=== PATIENT | male | born 1940 | race Caucasian/White ===

== ENCOUNTER 2020-10-04 11:40 | Emergency (ER) | payer MEDICARE, MEDICAID, SELFPAY ==
[2020-10-04 11:40] VITALS: BP 121/88; PULSE 115; RESP 18; TEMP 36.4; O2SAT 94; BMI 35.9
--- NOTE | 2020-10-04 11:48 | CT_ITS ---
PROCEDURE: CT LUMBAR SPINE WO CON CLINICAL HISTORY: back pain COMPARISON: No exams were available for comparison TECHNIQUE: Axial images obtained with sagittal and coronal reformats. All CT scans at the facility use one or more dose reduction, viz: automated exposure control, ma/kV adjustment per patient size (including targeted exams where dose is matched to indication, i.e. head), or iterative reconstruction technique. FINDINGS: There is normal curvature and alignment. There is mild generalized osteopenia. There is moderate anterior osteophytic spurring at the L2-3 and L3-4 levels. There is markedly prominent anterior osteophytic spurring at the T12-L1 level with partial fusion of the anterior osteophytes. There is minor anterolisthesis of L5 on S1 probably no more than 1-2 mm. There is mild disc space narrowing of the L5-S1 disc space. There are prominent hypertrophic facet changes at the L5-S1 level and minor anterior listhesis is likely secondary to the arthritic facet changes. There is no pars defect. There is a transitional vertebrae at the lumbosacral junction with almost complete lumbarization of S1 with unilateral pseudoarthrosis on the left side. There is moderate ossification of the iliolumbar ligament on the right side. The SI joints are grossly normal bilaterally. 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 Augusto Shah MD 10/04/2020 13:26 Dr. Augusto Shah MD in [place] 10/04/2020 13:26
--- NOTE | 2020-10-04 11:48 | XR_ITS ---
PROCEDURE: XR HIP LT 2-3V W/PELVIS CLINICAL INDICATION: back pain COMPARISON: No exams were available for comparison FINDINGS: There is marked asymmetrical joint space narrowing left hip with sclerosis of the superior acetabulum and spurring and sclerosis of the inferior lip of the acetabulum. There may be very mild protrusio acetabuli as well. There are mild to moderate degenerate changes of the right hip with a moderately large periarticular ossification. There is mild sclerosis of the inferior aspects of both SI joints. The symphysis pubis appears normal. There is bilateral ossification of the iliolumbar ligaments. 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 Dictated by: Dr. Augusto Shah MD 10/04/2020 13:40 Dr. Augusto Shah MD in [place] 10/04/2020 13:40
[2020-10-04 12:00] VITALS: BP 120/80; PULSE 97; O2SAT 98
[2020-10-04 12:09] LABS: Basophils # 0.1 K/mm3 (0-0.2); Basophils % 0.4 % (0.1-2.0); Eosinophils # 0.1 K/mm3 (0.0-0.4); Eosinophils % 0.9 % (0.1-12.0); Hematocrit 42.9 % (42.0-52.0); Hemoglobin 14.9 g/dL (14.1-18.0); Lymphocytes # 2.4 K/mm3 (0.7-4.5); Lymphocytes % 18.3 % (10-50); Mean Corpuscular HGB Conc 34.7 g/dL (31.8-35.4); Mean Corpuscular Volume 94.9 fl (80-94); Mean Platelet Volume 8.6 fl (7.4-10.4); Monocytes # 0.8 K/mm3 (0.1-1.0); Monocytes % 5.9 % (1.7-9.3); Neutrophils # 9.7 K/mm3 (1.8-7.8); Neutrophils % 74.4 % (37.0-80.0); Platelet Count 266 K/mm3 (142-424); Red Blood Count 4.52 M/mm3 (4.60-6.20); Red Cell Distribution Width 14.6 % (11.5-17.5); White Blood Count 13.1 K/mm3 (4.8-10.8)
--- NOTE | 2020-10-04 12:11 | HMH.EDBACK ---
ED Disposition Clinical Impression: Strain of lumbar region, Acute back pain with sciatica Disposition: Home, Self-Care Condition on Discharge: Good Instructions: DI for Low Back Pain Additional Instructions: Please return with any new or worsening symptoms including bowel or bladder dysfunction, numbness, inability to ambulate. Follow-up with PCP. Take Tylenol and Flexeril for pain. Prescriptions: Cyclobenzaprine HCl [Flexeril 10mg tablet] 10 mg PO BID PRN 30 Days #60 tab PRN Reason: Breakthru Severe Pain Transmission Status: Pending to [id number] Referrals: PCP,No [Primary Care Provider] - - Critical Care Critical Care Time: No Attestation: On 10/04/20, the high probability of a clinically significant, sudden or life threatening deterioration of the following system(s) required my full and direct attention, intervention and personal management. The time I documented below is in addition to time spent performing reported procedures but includes the following listed in this critical care notation. Medical Decision Making - Medical Records Medical records reviewed: Yes: I reviewed the patient's medical records. - Sumanth Inquiry Pt receiving controlled substance: No Vital Signs: 10/04/20 11:40 10/04/20 12:00 10/04/20 12:26 Temperature 97.5 F L Temperature Source Oral Pulse Rate [Left Radial] 115 H Pulse Rate [Right Radial] 97 H 74 Respiratory Rate 18 Blood Pressure [Right Arm] 121/88 120/80 127/68 Blood Pressure Mean [Right Arm] 99 93 87 Blood Pressure Source [Right Arm] Automatic Cuff Automatic Cuff Automatic Cuff Blood Pressure Position [Right Arm] Sitting Sitting Sitting 02 Sat by Pulse Oximetry 94 L 98 97 Oxygen Delivery Method Room Air Room Air Room Air 10/04/20 13:37 10/04/20 14:20 Temperature Temperature Source Pulse Rate [Left Radial] Pulse Rate [Right Radial] 97 H 112 H Respiratory Rate Blood Pressure [Right Arm] 113/72 102/55 L Blood Pressure Mean [Right Arm] 85 70 Blood Pressure Source [Right Arm] Automatic Cuff Automatic Cuff Blood Pressure Position [Right Arm] Sitting Sitting 02 Sat by Pulse Oximetry 99 95 Oxygen Delivery Method Room Air Room Air - Lab Data Lab Results 10/04/20 11:50: WBC 13.1 H, RBC 4.52 L, Hgb 14.9, Hct 42.9, MCV 94.9 H, MCH 33.0 H, MCHC 34.7, RDW 14.6, Plt Count 266, MPV 8.6, Neut % (Auto) 74.4, Lymph % (Auto) 18.3, [place] % (Auto) 5.9, Eos % (Auto) 0.9, Baso % (Auto) 0.4, Neut # (Auto) 9.7 H, Lymph # (Auto) 2.4, [place] # (Auto) 0.8, Eos # (Auto) 0.1, Baso # (Auto) 0.1 10/04/20 11:50: Sodium 135 L, Potassium 4.0, Chloride 97 L, Carbon Dioxide 27, Anion Gap 15.0, BUN 20, Creatinine 0.80, Estimated Creat Clear 96, Estimated GFR 93, Est GFR ( Amer) 113, Glucose 158 H, Calcium 10.0, Total Bilirubin 0.7, AST 40, ALT 28, Alkaline Phosphatase 131 H, Total Protein 8.1, Albumin 4.5, Globulin 3.6 H, Albumin/Globulin Ratio 1.3 10/04/20 12:57: Urine Color Yellow, Urine Appearance Clear, Urine pH 7.5, Ur Specific [place] 1.015, Urine Protein Negative, Urine Glucose (UA) Negative, Urine Ketones Negative, Urine Blood Negative, Urine Nitrate Negative, Urine Bilirubin Negative, Urine Urobilinogen 1.0, Ur Leukocyte Esterase Negative, Ur Squamous Epith Cells Occasional Result diagrams: 10/04/20 11:50 10/04/20 11:50 Orders (Tests/Meds): ED MEDICATIONS Discontinued Medications Generic Name Dose Route Start Last Admin Trade Name Columba PRN Reason Stop Dose Admin Acetaminophen 1,000 mg 10/04/20 14:10 10/04/20 14:24 Acetaminophen 500mg Tab PO 10/04/20 14:11 1,000 mg ONCE ONE Administration Cyclobenzaprine HCl 5 mg 10/04/20 14:11 10/04/20 14:24 Cyclobenzaprine 10mg Tablet PO 10/04/20 14:12 5 mg ONCE ONE Administration Lidocaine 1 each 10/04/20 14:15 10/04/20 14:25 Lidocaine 5% Transdermal Patch TP 10/04/20 14:16 1 each Q24H ONE Administration Morphine Sulfate 4 mg 10/04/20 11:51 10/04/20 12:13 Morphine
[2020-10-04 12:18] LABS: Alanine Aminotransferase 28 U/L (12-78); Albumin Level 4.5 g/dl (3.5-5.0); Albumin/Globulin Ratio 1.3 (1.1-1.8); Alkaline Phosphatase 131 U/L (38-126); Aspartate Amino Transferase 40 U/L (17-59); Bilirubin,Total 0.7 mg/dl (0.2-1.3); Blood Urea Nitrogen 20 mg/dl (9-20); Carbon Dioxide 27 mmol/L (22.0-30.0); Chloride 97 mmol/L (98-107); Creatinine Clearance Estimated 96 mL/min (50-200); Estimated Glomerular Filt Rate 93 ml/min (>60); GFR (African American) 113 ML/MIN (>60); Globulin 3.6 g/dL (1.3-3.2); Glucose 158 mg/dl (74-100); Sodium 135 mmol/L (136-145); Total Protein,Serum 8.1 g/dl (6.3-8.2)
[2020-10-04 12:26] VITALS: BP 127/68; PULSE 74; O2SAT 97
[2020-10-04 13:09] LABS: Microscopic, Urine URINE MICROSCOPIC (MICROSCOPIC)
[2020-10-04 13:12] LABS: Appearance,Urine CLEAR (Clear); Bilirubin,Urine Negative (Negative); Blood, Urine Negative (Negative); Color,Urine YELLOW (Yellow); Glucose,Urine (UA) Negative (Negative); Ketones,Urine Negative (Negative); Leukocyte Esterase,Urine Negative (Negative); Nitrate,Urine Negative (Negative); PH,Urine 7.5 (5.0-8.5); Protein,Urine Negative (Negative); Specific Gravity, Urine 1.015 (1.005-1.030)
[2020-10-04 13:37] VITALS: BP 113/72; PULSE 97; O2SAT 99
[2020-10-04 13:39] LABS: Squamous Epithelial Cell,Urine Occasional #/hpf (0-5)
[2020-10-04 14:20] VITALS: BP 102/55; PULSE 112; O2SAT 95
--- NOTE | 2020-10-04 14:38 | XR_ITS ---
PROCEDURE: XR KNEE LT 3V CLINICAL INDICATION: pain COMPARISON: No exams were available for comparison FINDINGS: No fracture or dislocation. No lytic or blastic change. There is normal mineralization. There is marked joint space narrowing laterally with almost bone on bone appearance. There is spurring of the tibial spines. There is narrowing of patellofemoral space with spurring of the superior border of the patella. There is no definite fracture or loose body. There may be a small effusion within the suprapatellar bursa. IMPRESSION: Question small joint effusion, findings of moderate the degenerate change involving the lateral joint space and patellofemoral space Dictated by: Dr. Augusto Shah MD 10/04/2020 15:27 Dr. Augusto Shah MD in [place] 10/04/2020 15:27
--- NOTE | 2020-10-04 15:47 | PC.NURSE ---
Pt ambulated well with x2 assistance. Pt states that he sometimes uses a walker at home.
[2020-10-04 16:30] VITALS: BP 118/75; PULSE 84; RESP 20; TEMP 36.6; O2SAT 95
== END 2020-10-04 16:35 | disposition home or self-care (01) ==
PROVIDERS: Emergency Provider Emergency Medicine; PCP Family Medicine
DX: S39.012A Strain of muscle, fascia and tendon of lower back, initial encounter (principal); Z79.899 Other long term (current) drug therapy; I10 Essential (primary) hypertension; K21.9 Gastro-esophageal reflux disease without esophagitis; Z79.01 Long term (current) use of anticoagulants
CPT/HCPCS: 72131; 73502; 73562; 80053; 81001; 85025; 96374; 96375; 99284; J2405

== ENCOUNTER 2021-06-30 12:48 | Inpatient (IN) | payer MEDICARE, MEDICAID, SELFPAY ==
[2021-06-30] VITALS (16 sets, daily range): BP systolic 95–163; BP diastolic 56–117; PULSE 100–155; RESP 16–23; TEMP 36.6–37.4; O2SAT 92–98; BMI 37.3; BMI 32.9
--- NOTE | 2021-06-30 12:57 | HMH.EDAMS ---
ED Disposition Clinical Impression: Atrial fibrillation with rapid ventricular response, Cellulitis and abscess of finger, unspecified, Cellulitis, neck Sepsis Qualifiers: Sepsis type: sepsis due to unspecified organism Sepsis acute organ dysfunction status: without acute organ dysfunction Qualified Code(s): A41.9 - Sepsis, unspecified organism Disposition: Admitted as Observation Condition on Discharge: Serious - Critical Care Critical Care Time: Yes Attestation: On , the high probability of a clinically significant, sudden or life threatening deterioration of the following system(s) required my full and direct attention, intervention and personal management. The time I documented below is in addition to time spent performing reported procedures but includes the following listed in this critical care notation. Total Critical Care Time: 60 Vital system(s) involved:: Circulatory Failure My critical care processes included: Assessment & monitoring of V/S, Initial and Re-exams, Data Review/Interpretation, Coordinating Care, Medication Orders and management, Documentation Medical Decision Making - Medical Records Medical records reviewed: Yes: I reviewed the patient's medical records. - Sumanth Inquiry Pt receiving controlled substance: No Vital Signs: 06/30/21 12:48 Temperature 97.8 F Temperature Source Oral Pulse Rate [Right Radial] 140 H Respiratory Rate 19 Blood Pressure [Right Arm] 147/102 H Blood Pressure Mean [Right Arm] 117 Blood Pressure Source [Right Arm] Automatic Cuff Blood Pressure Position [Right Arm] Sitting 02 Sat by Pulse Oximetry 94 L Oxygen Delivery Method Room Air - Lab Data Lab Results 06/30/21 12:30: WBC 34.6 H*, RBC 4.51 L, Hgb 14.6, Hct 43.0, MCV 95.4 H, MCH 32.5 H, MCHC 34.0, RDW 13.9, Plt Count 375, MPV 9.2, Neut % (Auto) 89.0 H, Lymph % (Auto) 4.8 L, [place] % (Auto) 5.2, Eos % (Auto) 0.0 L, Baso % (Auto) 0.9, Neut # (Auto) 30.8 H, Lymph # (Auto) 1.7, [place] # (Auto) 1.8 H, Eos # (Auto) 0.0, Baso # (Auto) 0.3 H, Total Counted 100, Neutrophils % (Manual) 75, Band Neutrophils % 3.0, Lymphocytes % (Manual) 14, Monocytes % (Manual) 8, Platelet Estimate Normal, RBC Morphology Normal 06/30/21 12:30: PT 21.6 H, INR 1.92 H 06/30/21 12:30: Sodium 117 L, Potassium 4.2, Chloride 78 L, Carbon Dioxide 28, Anion Gap 15.2 H, BUN 19, Creatinine 0.70, Estimated Creat Clear 104, Estimated GFR 109, Est GFR ( Amer) 131, Glucose 148 H, Calcium 8.8, Total Bilirubin 1.4 H, AST 40, ALT 36, Alkaline Phosphatase 225 H, Troponin I 0.02, NT-Pro-B Natriuret Pep 1260 H, Total Protein 7.2, Albumin 3.6, Globulin 3.6 H, Albumin/Globulin Ratio 1.0 L 06/30/21 12:30: Lactate 1.6 Result diagrams: 06/30/21 12:30 06/30/21 12:30 Orders (Tests/Meds): ED MEDICATIONS Generic Name Dose Route Start Last Admin Trade Name Freq PRN Reason Stop Dose Admin Diltiazem HCl 100 mg/ Sodium 100 mls @ 5 mls/hr 06/30/21 13:45 06/30/21 14:50 Chloride IV 07/30/21 13:44 5 mls/hr .Q20H PORSHA Administration Protocol Piperacillin Sod/Tazobactam 50 mls @ 100 mls/hr 06/30/21 13:30 06/30/21 14:50 Sod 3.375 gm/ Sodium Chloride IV 07/14/21 13:29 100 mls/hr Q6H PORSHA Administration Discontinued Medications Generic Name Dose Route Start Last Admin Trade Name Freq PRN Reason Stop Dose Admin Diltiazem HCl 10 mg 06/30/21 13:23 06/30/21 14:50 Diltiazem 25mg/5ml Vial IV 06/30/21 13:24 10 mg ONCE ONE Administration ORDERS Category Date Time Status Complete Blood Count Auto Diff AMLAB Lab 07/01/21 06:00 Ordered Troponin I Q3H Lab 06/30/21 16:15 Ordered ECG Request by /Nse Stat Y 06/30/21 13:01 Ordered - ECG Data Tracing #1 I reviewed this ECG and interpreted as documented below: The patient's EKG was performed at 1320 2 PM and shows atrial fibrillation with a rapid ventricular response at a rate of 133 bpm. There is left axis deviation. There is no acute ischemia. There are some occ
--- NOTE | 2021-06-30 13:01 | ECG_ITS ---
APPROVED REPORT Exam: Resting ECG HR:133 bpm ECG Measurements Heart Rate 133 AXES QRSd 92 QRS -66 QT 284 T 101 QTc 422 Conclusion Atrial fibrillation with rapid ventricular response with premature ventricular or aberrantly conducted complexes Left axis deviation Cannot rule out Anterior infarct, age undetermined Abnormal ECG Electronically signed by : Isidoro Vaughn MD 07/03/2021 10:57:34
--- NOTE | 2021-06-30 13:01 | XR_ITS ---
PROCEDURE: XR CHEST PORTABLE CLINICAL HISTORY: Dyspnea COMPARISON: No exams were available for comparison FINDINGS: There is cardiomegaly. No evidence of failure. Lung bases are under penetrated. Cannot exclude infiltrate in the lung bases left more so than right. No obvious effusions or pneumothorax. No definite lobar consolidation or collapse. Degenerative changes of the shoulders. IMPRESSION: No acute findings. Dictated by: Jarvis Oliveira MD 06/30/2021 13:44 Jarvis Oliveira MD in [place] 06/30/2021 13:44
[2021-06-30 13:20] LABS: Basophils # 0.3 K/mm3 (0-0.2); Basophils % 0.9 % (0.1-2.0); Hemoglobin 14.6 g/dL (14.1-18.0); Lymphocytes # 1.7 K/mm3 (0.7-4.5); Lymphocytes % 4.8 % (10-50); Mean Corpuscular Hemoglobin 32.5 pg (27.0-31.2); Mean Corpuscular Volume 95.4 fl (80-94); Mean Platelet Volume 9.2 fl (7.4-10.4); Monocytes # 1.8 K/mm3 (0.1-1.0); Monocytes % 5.2 % (1.7-9.3); Neutrophils # 30.8 K/mm3 (1.8-7.8); Platelet Count 375 K/mm3 (142-424); Red Blood Count 4.51 M/mm3 (4.60-6.20); Red Cell Distribution Width 13.9 % (11.5-17.5); White Blood Count 34.6 K/mm3 (4.8-10.8)
[2021-06-30 13:23] LABS: MANUAL DIFFERENTIAL MANUAL DIFFERENTIAL (MANUAL DIFF)
[2021-06-30 13:27] LABS: Alanine Aminotransferase 36 U/L (12-78); Albumin Level 3.6 g/dl (3.5-5.0); Alkaline Phosphatase 225 U/L (38-126); Anion Gap 15.2 mEq/L (5-15); Aspartate Amino Transferase 40 U/L (17-59); Bilirubin,Total 1.4 mg/dl (0.2-1.3); Blood Urea Nitrogen 19 mg/dl (9-20); Calcium 8.8 mg/dl (8.4-10.2); Carbon Dioxide 28 mmol/L (22.0-30.0); Chloride 78 mmol/L (98-107); Creatinine Clearance Estimated 104 mL/min (50-200); Estimated Glomerular Filt Rate 109 ml/min (>60); GFR (African American) 131 ML/MIN (>60); Globulin 3.6 g/dL (1.3-3.2); Glucose 148 mg/dl (74-100); Potassium 4.2 mmoL/L (3.5-5.1); Prothrombin Time 21.6 seconds (10.1-12.5); Sodium 117 mmol/L (136-145); Total Protein,Serum 7.2 g/dl (6.3-8.2)
[2021-06-30 13:28] LABS: INR 1.92 (0.9-1.1); Lactic Acid 1.6 mmol/L (0.7-2.1)
[2021-06-30 13:37] LABS: Lymphocytes % 14 % (10-50); Monocytes % 8 % (2-9); Neutrophils % 75 % (42-76); Platelet Estimate Normal; RBC Morphology Normal; Total Cells Counted 100
[2021-06-30 13:41] LABS: NT Pro Brain Natriuretic Pep. 1260 pg/mL (0-450); Troponin I 0.02 ng/ml (0.00-0.034)
--- NOTE | 2021-06-30 15:46 | PC.NURSE ---
DILTIAZEM GTT TITRATED UP TO 10MG/HR, 5MG BOLUS GIVEN PER MD LOU WITH TITRATION
--- NOTE | 2021-06-30 16:41 | PC.NURSE ---
called for cardiac consult, they advised Meg would see him in the morning
--- NOTE | 2021-06-30 16:43 | PC.NURSE ---
received bed assisgnment from second floor charge [place] in registration of admission information
[2021-06-30 16:59] LABS: Coronavirus 19, PCR Not Detected (NotDetected); Influenza A, PCR Not Detected (NotDetected); Influenza B, PCR Not Detected (NotDetected)
--- NOTE | 2021-06-30 17:37 | PC.NURSE ---
Attempted to call report to second floor. They advised the nurse is starting an IV and will call me back as soon as she can.
[2021-06-30 18:04] LABS: Troponin I 0.01 ng/ml (0.00-0.034)
--- NOTE | 2021-06-30 18:38 | PC.NURSE ---
pt arrived to the floor at this time
--- NOTE | 2021-06-30 19:33 | HMH.HP ---
*Admission Date: 06/30/21 *Chief complaint: mental status changes, cellulitis, afib *History of present illness: Patient is an 80-year-old white male admitted to our service as an unassigned patient. He is a very poor historian. Is having some confusion, ental status changes. Was brought to the emergency room earlier today for evaluation. In the course of his work-up noted to have a significant leukocytosis with a white count of 34,000. He was also found to be in A. fib with a rapid rate. A Cardizem drip was initiated, uptitrated to 15. The patient denies ischemic chest features, dyspnea, or cardiac history. Patient was brought in and a markedly unkempt and disheveled status. Clothing was dirty and unwashed. Patient has a marked cellulitis involving the right third finger. There is swelling warmth and purulent drainage. This was cultured. Peers grossly to be growing MRSA. Patient also has an area of significant redness warmth and induration in the posterior neck. This was also cultured, also grossly appears to be MRSA. The soft tissue swelling does not impinge upon the trachea or airway. Structures remain mobile and in the midline. Patient has several scattered abrasions forehead. His abdomen is rotund obese and soft. He has a nonincarcerated umbilical hernia. His extremities have some edema. Stool perfusion is adequate. The nurses noted that his bottom was excoriated for they gave him a good cleaning. Patient is poorly oriented to place and time. [facility] History Medical History: Reports:: Atrial Fibrillation, Hypertension *Have you ever received a pneumonia vaccine?: No *Have you received a flu vaccine this season?: No Other Medical History: Reports: Arthritis Other Surgeries: Yes: Colonoscopy - *Social History Last grade of school completed: 7th or 8th Smoking Status: Current some day smoker Tobacco Type: cigarettes Alcohol Intake: never Substance Use Type: denies use *Occupational Status:: retired *Travel in the last 8 weeks: None Family Hx:: No significant family history Review of Systems - Review of Systems Review of systems:: unable to obtain Meds Home Medications Medication Instructions Recorded Confirmed Type Amlodipine Besylate [Amlodipine 10 mg PO DAILY 10/04/20 10/21/20 History 10mg Tab] Cyclobenzaprine HCl [Flexeril 10mg 10 mg PO BID PRN 30 Days #60 tab 12/12/20 12/29/20 Rx tablet] Famotidine [Acid Controller] 20 mg PO DAILY 10/04/20 10/21/20 History Metoprolol Tartrate 25 mg PO BID 10/04/20 10/21/20 History Potassium Chloride 20 meq PO DAILY 10/04/20 10/21/20 History Warfarin Sodium 5 mg PO DIRECTED 10/04/20 10/21/20 History allopurinoL [Allopurinol 300mg 300 mg PO DAILY 10/04/20 10/21/20 History tablet] hydroCHLOROthiazide [HCTZ 25mg 25 mg PO DAILY 10/04/20 10/21/20 History tab] lisinopriL [Lisinopril 40mg Tablet] 40 mg PO DAILY 10/04/20 10/21/20 History Allergies Allergy/AdvReac Type Severity Reaction Status Date / Time No Known Allergies Allergy Verified 10/21/20 13:15 Exam Vital signs and Labs for Last 24 Hours: Temp Pulse Resp BP Pulse Ox 98.4 F 121 H 23 134/72 96 06/30/21 18:38 06/30/21 18:38 06/30/21 18:38 06/30/21 18:38 06/30/21 16:31 Laboratory Results - last 24 hr 06/30/21 12:30: WBC 34.6 H*, RBC 4.51 L, Hgb 14.6, Hct 43.0, MCV 95.4 H, MCH 32.5 H, MCHC 34.0, RDW 13.9, Plt Count 375, MPV 9.2, Neut % (Auto) 89.0 H, Lymph % (Auto) 4.8 L, [place] % (Auto) 5.2, Eos % (Auto) 0.0 L, Baso % (Auto) 0.9, Neut # (Auto) 30.8 H, Lymph # (Auto) 1.7, [place] # (Auto) 1.8 H, Eos # (Auto) 0.0, Baso # (Auto) 0.3 H, Total Counted 100, Neutrophils % (Manual) 75, Band Neutrophils % 3.0, Lymphocytes % (Manual) 14, Monocytes % (Manual) 8, Platelet Estimate Normal, RBC Morphology Normal 06/30/21 12:30: PT 21.6 H, INR 1.92 H 06/30/21 12:30: Sodium 117 L, Potassium 4.2, Chloride 78 L, Carbon Dioxide 28, Anion Gap 15.2 H, BUN 19, Creatinine 0.70, Estimated Creat Franki
--- NOTE | 2021-06-30 19:46 | CT_ITS ---
PROCEDURE INFORMATION: Exam: CT Head Without Contrast Exam date and time: 06/30/2021 7:46 PM Age: 80 years old Clinical indication: Altered mental status/memory loss; Additional info: Mental status changes TECHNIQUE: Imaging protocol: Computed tomography of the head without contrast. Radiation optimization: All CT scans at this facility use at least one of these dose optimization techniques: automated exposure control; mA and/or kV adjustment per patient size (includes targeted exams where dose is matched to clinical indication); or iterative reconstruction. COMPARISON: No relevant prior studies available. FINDINGS: Brain: Normal. No hemorrhage. Mild hypoattenuation of the periventricular and subcortical white matter, consistent with chronic microvascular ischemic disease. . No mass effect. Cerebral ventricles: No ventriculomegaly. Paranasal sinuses: Unremarkable. Mastoid air cells: Visualized mastoid air cells are well aerated. Vasculature: Atherosclerotic calcification of the bilateral intracranial internal carotid and right vertebral arteries. Bones/joints: Unremarkable. No acute fracture. Soft tissues: Occipital and suboccipital soft tissue swelling with skin thickening and subcutaneous edema, which may represent cellulitis. IMPRESSION: 1. No acute intracranial abnormality. 2. Occipital and suboccipital soft tissue swelling with skin thickening and subcutaneous edema, which may represent cellulitis. Further evaluation with direct visualization and examination may be of benefit. Please see separate report of CT of the neck soft tissue.
--- NOTE | 2021-06-30 20:09 | CT_ITS ---
PROCEDURE INFORMATION: Exam: CT Neck With Contrast Exam date and time: 06/30/2021 8:09 PM Age: 80 years old Clinical indication: Cellulitis of neck; Additional info: Cellulitis of the neck, drainage TECHNIQUE: Imaging protocol: Computed tomography images of the neck with contrast. Radiation optimization: All CT scans at this facility use at least one of these dose optimization techniques: automated exposure control; mA and/or kV adjustment per patient size (includes targeted exams where dose is matched to clinical indication); or iterative reconstruction. Contrast material: ISOVUE; Contrast volume: 75 ml; Contrast route: IV; COMPARISON: CT HEAD/BRAIN WO CON 06/30/2021 7:58 PM FINDINGS: Paranasal sinuses: Mucous retention cyst in the right maxillary sinus. Mild mucosal thickening of the left maxillary sinus. Nasopharynx: Unremarkable. Dental: The patient is edentulous. Oropharynx: Unremarkable. No significant tonsillar enlargement. Hypopharynx: Unremarkable. Larynx: Unremarkable. Normal epiglottis. Retropharyngeal space: Unremarkable. Submandibular/Parotid glands: Normal. Glands are normal in size. Thyroid: Normal. No enlarged or calcified nodules. Lymph nodes: Bilateral subcentimeter cervical chain lymph nodes, likely reactive. Trachea: Visualized trachea is unremarkable. Lungs: Subsegmental atelectasis. Bones/joints: No acute fracture. Degenerative change. Small anterior osteophytes. Multilevel uncinate process and facet hypertrophy with at least mild neural foraminal narrowing. Vasculature: Atherosclerotic calcification. Soft tissues: Extensive soft tissue swelling and skin thickening in the occipital and suboccipital soft tissues, in the bilateral parasagittal region, greater on the left. Thickening of the superficial fascia, extending anteriorly to level of bilateral parotid glands (series 3, image 40). Findings are compatible with cellulitis. Ill-defined focus of subcutaneous edema measures 11.6 x 2.6 x 10.1 cm may represent an infected collection, such as phlegmon. No discrete fluid collection or abscess. Possible edema involving the posterior paraspinous musculature, including the rectus capitis and oblique capitis musculature, possibly myositis. IMPRESSION: 1. Extensive soft tissue swelling and skin thickening in the occipital and suboccipital soft tissues, as above, compatible with cellulitis. Ill-defined focus of subcutaneous edema measuring up to 11.6 cm may represent an infected collection, such as phlegmon. No abscess. Possible edema involving the posterior paraspinous musculature, including the rectus capitis and oblique capitis musculature, possibly myositis. Correlation with examination and direct visualization may be of benefit.
--- NOTE | 2021-06-30 20:17 | PC.NURSE ---
WHEN PT ARRIVED TO THE FLOOR HE RECEIVED A TOTAL BATH AND BED CHANGE. PT WAS NOTED TO HAVE MULTIPLE SKIN ISSUES. PT HAD DRAINAGE/REDNESS/SWELLING NOTED TO THE RIGHT MIDDLE FINGER AND ALSO TO THE BACK OF THE NECK ( BOTH AREAS CULTURED WITH AT BEDSIDE). BOTH AREAS VERY TENDER. PT HAS MULTIPLE ABRASIONS. ESCORIATION NOTED TO SCROTUM/BUTTOCKS/COCCYX. PICS NOT OBTAINED AT THIS TIME DUE TO PT'S MENTAL STATUS. PT IS ALERT TO NAME/ BUT WHEN HE IS ASKED ABOUT THE YEAR HE STATES IT IS 1973. PT HAS EXPRESSED CONCERN ABOUT MEDICARE MULTIPLE TIMES AND WHO WAS GOING TO TAKE CARE OF HIS BROTHER JAVIER WHO HE STATES LIVES WITH HIM. PT IS ON THE CARDIZEM DRIP AT THIS TIME. STATED HE WANTED PT TO BE STARTED ON VANCOMYCIN. REPORT HANDOFF TO LILIAN LANG RN.
--- NOTE | 2021-06-30 22:34 | PC.NURSE ---
Clarified Vancomycin Dosage with [facility]. Give 2,000 mg in 250 ml NS bag. Run for 2 hrs.
[2021-07-01] VITALS (29 sets, daily range): BP systolic 107–171; BP diastolic 54–95; PULSE 80–140; RESP 12–20; TEMP 36.1–37.5; O2SAT 91–100; BMI 32.9; BMI 32.8
[2021-07-01 06:01] LABS: Basophils # 0.1 K/mm3 (0-0.2); Basophils % 0.2 % (0.1-2.0); Eosinophils % 0.1 % (0.1-12.0); Hematocrit 40.3 % (42.0-52.0); Hemoglobin 13.5 g/dL (14.1-18.0); Lymphocytes # 1.5 K/mm3 (0.7-4.5); Lymphocytes % 4.8 % (10-50); Mean Corpuscular HGB Conc 33.5 g/dL (31.8-35.4); Mean Corpuscular Hemoglobin 32.2 pg (27.0-31.2); Mean Corpuscular Volume 96.2 fl (80-94); Mean Platelet Volume 9.1 fl (7.4-10.4); Monocytes % 6.2 % (1.7-9.3); Neutrophils # 28.1 K/mm3 (1.8-7.8); Neutrophils % 88.6 % (37.0-80.0); Platelet Count 289 K/mm3 (142-424); White Blood Count 31.7 K/mm3 (4.8-10.8)
[2021-07-01 06:11] LABS: Alanine Aminotransferase 28 U/L (12-78); Albumin Level 2.8 g/dl (3.5-5.0); Albumin/Globulin Ratio 0.9 (1.1-1.8); Alkaline Phosphatase 178 U/L (38-126); Anion Gap 12.7 mEq/L (5-15); Aspartate Amino Transferase 33 U/L (17-59); Bilirubin,Total 1.6 mg/dl (0.2-1.3); Blood Urea Nitrogen 14 mg/dl (9-20); Calcium 7.9 mg/dl (8.4-10.2); Carbon Dioxide 26 mmol/L (22.0-30.0); Chloride 84 mmol/L (98-107); Creatinine Clearance Estimated 92 mL/min (50-200); Estimated Glomerular Filt Rate 130 ml/min (>60); GFR (African American) 157 ML/MIN (>60); Glucose 138 mg/dl (74-100); Potassium 3.7 mmoL/L (3.5-5.1); Sodium 119 mmol/L (136-145); Total Protein,Serum 5.8 g/dl (6.3-8.2)
--- NOTE | 2021-07-01 06:11 | PC.NURSE ---
Pt remains in afib and on DIltiazem gtt. Currently infusing @ 10 mg/hr. Pt tolerating well. He remains on RA. Lungs clear. O2 sat 98%. During assessment pt noted to have erythema with open areas to back of neck and middle (R) finger. Drainage noted to both areas. DSG applied to (R) finger. Absorbent pad placed behind pt's neck. Pt is excoriated in michael area. Pt requested to have a urinary bag placed. Condom catheter was placed. Medication administered per mar. VSS. Will continue to monitor.
[2021-07-01 06:16] LABS: MANUAL DIFFERENTIAL MANUAL DIFFERENTIAL (MANUAL DIFF)
[2021-07-01 06:41] LABS: Thyroid Stimulating Hormone 1.19 uIU/mL (0.465-4.68)
--- NOTE | 2021-07-01 06:52 | PC.NURSE ---
Diltiazem gtt Titration; 1920 15 mg/hr 2200 10 mg/hr 0020 15 mg/hr 0530 10 mg/hr
--- NOTE | 2021-07-01 07:36 | HMH.PHAVTE ---
[facility] VTE Monitoring - Patient Demographics Admission date: 06/30/21 Report Date: 07/01/21 Time: 07:36 Allergies/Adverse Reactions: Patient Allergies No Known Allergies Allergy (Verified 10/21/20 13:15) Height: 1.83 m Weight: 110.421 kg Patient Problems: Current Active Problems Atrial fibrillation with rapid ventricular response (Acute) Sepsis (Acute) Cellulitis and abscess of finger, unspecified (Acute) Cellulitis, neck (Acute) Leukocytosis (Acute) Essential hypertension (Chronic) - VTE Risk Labs: VTE Related Lab Results Hgb 13.5 g/dL (14.1-18.0) L 07/01/21 05:25 Hct 40.3 % (42.0-52.0) L 07/01/21 05:25 Plt Count 289 K/mm3 (142-424) 07/01/21 05:25 PT 21.6 seconds (10.1-12.5) H 06/30/21 12:30 INR 1.92 (0.9-1.1) H 06/30/21 12:30 BUN 14 mg/dl (9-20) D 07/01/21 05:25 Creatinine 0.60 mg/dl (0.66-1.25) L 07/01/21 05:25 Estimated Creat Clear 92 mL/min (50-200) 07/01/21 05:25 VTE Score: 2 - Prophylaxis VTE Prophylaxis Ordered?: Yes Types of VTE Prophylaxis: TEDS Knee High, Pharmacological Location of Applied Device: Bilateral Lower Extremeties Pharmacologic Type: Enoxaparin
--- NOTE | 2021-07-01 07:39 | CA_ITS ---
APPROVED REPORT EXAM: Comprehensive 2D, Doppler, and color-flow Echocardiogram Dirt Contractor: Nunu Zepeda RVT Ht: 6 ft 0 in Wt: 243lbs BSA: 2.31 BP: 124/95 mmHg Indications: A-FIB,SEPSIS,CELLULITIS,HTN,SMOKER Echo Enhancing Agent Indication: Endocardial border delineation Agent(s) / Amount(s) Used: Definity 2 cc 2D Dimensions LVOT 2.44 cm (M/F) 1.5-2.5 LA Volume 87.40 mL LA Volume Index 37.83 mL/m2 (M/F) 16-34 M-Mode Dimensions RVDd 3.18 cm (0.9-2.6) LA Diam 3.81 cm (1.9-4.0) LVDd 5.77 cm (3.5-5.7) Ao Diam 3.94 cm (2.0-3.7) LVDs 3.73 cm (3.5-5.7) IVSd 0.89 cm (0.6-1.1) PWd 0.59 cm (0.6-1.1) EF (Teich) 64.00% FS 35.40% EDV (Teich) 164.60 mL TAPSE 2.42 (<1.7) ESV (Teich) 59.30 mL Aortic Valve AO Peak GR. 6.00 mmHg Pulmonary Valve PV Peak Velocity 87.00 (50-150 cm/s) Tricuspid Valve TR P. Velocity 286.00 cm/s RAP Estimate 10.00 mmHg RVSP 42.70 mmHg Left Ventricle Technically difficult study because of the patient factors and poor acoustic windows, Definity contrast was utilized to delineate the endocardial surfaces. Left atrium is mildly enlarged, left ventricle is normal size, mild concentric left ventricular hypertrophy, visually estimated ejection fraction 50% with no regional wall motion abnormality, there is no left ventricular thrombus seen. Right Ventricle Right atrium and right ventricle mildly enlarged with normal contractility. Aortic Valve Aortic valve is minimally thickened and calcified without aortic stenosis or aortic insufficiency. Mitral Valve Mitral valve leaflets are minimally thickened, there is mild mitral regurgitation. Tricuspid Valve Tricuspid valve grossly normal, there is mild tricuspid regurgitation, tricuspid regurgitation (inadequate for calculation of the right ventricular systolic pressure. Pulmonic Valve Pulmonic valve is poorly visualized. Great Vessels Aortic root is normal size. Pericardium Small pericardial effusion noted. Conclusion 1. Biatrial enlargement, normal left ventricular size, mild concentric left ventricular hypertrophy, visually estimated ejection fraction 50% with no obvious regional wall motion abnormality, diastolic parameters are inconclusive, Definity contrast was utilized to delineate the endocardial surfaces, there is no left ventricular thrombus seen. 2. Mildly enlarged right ventricle with normal contractility. 3. Mild mitral and tricuspid regurgitation. 4. Small pericardial effusion noted. Electronically signed by : Rogelio Rodríguez MD 07/02/2021 11:40:11
--- NOTE | 2021-07-01 07:56 | HMH.PHAINT ---
MEDICATION RECONCILIATION COMPLETED USING PHARMACY FILL HISTORY.
--- NOTE | 2021-07-01 08:00 | HMH.CNCARD ---
History of Present Illness Consult date: 07/01/21 Requesting physician: Orlando Mcguire Consult reason: atrial fibrillation Chief complaint: atrial fib with RVR History of present illness: 80-year-old male admitted to [facility] with sepsis and atrial fibrillation with RVR. Patient is a very poor historian. Patient is somewhat confused. Patient would only answer to his name then proceeded to go back to sleep. According to the ED record, patient arrived to the emergency room in atrial fibrillation with RVR with a heart rate over 140 bpm. Patient does have history of atrial fibrillation and currently on Coumadin daily. Unknown when patient was diagnosed with atrial fibrillation or prescribed Coumadin. ED record also revealed patient noted with multiple skin issues such as cellulitis in the back of the neck which appears to be MRSA. Right third finger also noted with cellulitis and possible MRSA. Significant leukocytosis noted with WBC over 34,000. Serial troponins performed which were negative x2. Patient does not appear to be in pain. Respirations are easy and regular. site monitor reveals atrial fibrillation with a heart rate of 109 bpm. Patient is on Cardizem drip at this time. Blood pressure stable. Chest x-ray was performed which revealed no acute findings. Head CT had been performed which revealed soft tissue swelling and skin thickening and subcutaneous edema which presented cellulitis of the neck. Soft tissue of the neck scan was performed which revealed extensive soft tissue involving the skin and thickening compatible with cellulitis. Blood cultures have been drawn per PCP. Antibiotics have been started per PCP. Soft Tissue of the Neck:IMPRESSION: 1. Extensive soft tissue swelling and skin thickening in the occipital and suboccipital soft tissues, as above, compatible with cellulitis. Ill-defined focus of subcutaneous edema measuring up to 11.6 cm may represent an infected collection, such as phlegmon. No abscess. Possible edema involving the posterior paraspinous musculature, including the rectus capitis and oblique capitis musculature, possibly myositis. Correlation with examination and direct visualization may be of benefit. Head CT:IMPRESSION: 1. No acute intracranial abnormality. 2. Occipital and suboccipital soft tissue swelling with skin thickening and subcutaneous edema, which may represent cellulitis. Further evaluation with direct visualization and examination may be of benefit. Please see separate report of CT of the neck soft tissue. Discussed plan of care with Dr. Mayo. Orders and recommendations were received from Dr. Mayo. Patient continues to be on a Cardizem drip until heart rate is at a controlled rate. Will start home medications. Metoprolol 25 mg p.o. twice daily for better heart rate and blood pressure control. Restart lisinopril 40 mg p.o. daily for better BP control. Will restart hydrochlorothiazide 25 mg daily for better BP control. Continue to hold Coumadin at this time. Surgery has been consulted due to cellulitis of the posterior portion of the neck. Possibility patient may go to surgery for debridement of the cellulitis. Patient will continue to have Lovenox injections SQ as ordered by PCP. Obtain echocardiogram to assess LV function and valve status. Pending on the results of the echocardiogram, medication and treatment therapies may be recommended. Please notify cardiology of any changes in patient status. Thank you for allowing cardiology to participate in the care of this patient. [facility] History I have reviewed the patient's past medical history: Yes Medical History: Reports:: Atrial Fibrillation, Hypertension Denies:: Cancer, Diabetes Mellitus Type 1, Diabetes Mellitus Type 2, MRSA *Have you ever received a pneumonia vaccine?: No *Have you received a flu vaccine this season?: No Other Medical History: Reports: Arthritis
--- NOTE | 2021-07-01 08:06 | HMH.GSCON ---
*Admission Date: 06/30/21 *Reason for consult:: Posterior neck abscess; right third finger paronychia *History of present illness: This is an 80-year-old gentleman seen in consultation from Dr. Mcguire for evaluation regarding posterior neck abscess and right third finger paronychia/abscess. He presented with mental status changes and leukocytosis. In addition, he is being evaluated by cardiology with regard to atrial fibrillation. Evaluation in the emergency department revealed significant induration and erythema along the posterior neck, as well as, significant abscess/paronychia of right third finger. Review of Systems - Review of Systems Review of systems:: unable to obtain [facility] History Medical History: Reports:: Atrial Fibrillation, Hypertension Denies:: Cancer, Diabetes Mellitus Type 1, Diabetes Mellitus Type 2, MRSA *Have you ever received a pneumonia vaccine?: No *Have you received a flu vaccine this season?: No Other Medical History: Reports: Arthritis Other Surgeries: Yes: Colonoscopy Amputation: No Fractures: No - *Social History Last grade of school completed: 7th or 8th Smoking Status: Never smoker Tobacco Type: cigarettes Alcohol Intake: never Substance Use Type: denies use *Occupational Status:: other Housing: house Household Members: family *Travel in the last 8 weeks: None Family Hx:: No significant family history Meds Home Medications Medication Instructions Recorded Confirmed Type Amlodipine Besylate [Amlodipine 10 mg PO DAILY 10/04/20 07/01/21 History 10mg Tab] Famotidine [Acid Controller] 20 mg PO DAILY 10/04/20 07/01/21 History Metoprolol Tartrate 25 mg PO BID 10/04/20 07/01/21 History Potassium Chloride 20 meq PO DAILY 10/04/20 07/01/21 History Warfarin Sodium 5 mg PO DAILY 10/04/20 07/01/21 History allopurinoL [Allopurinol 300mg 300 mg PO DAILY 10/04/20 07/01/21 History tablet] hydroCHLOROthiazide [HCTZ 25mg 25 mg PO DAILY 10/04/20 07/01/21 History tab] lisinopriL [Lisinopril 40mg Tablet] 40 mg PO DAILY 10/04/20 07/01/21 History Allergies Allergy/AdvReac Type Severity Reaction Status Date / Time No Known Allergies Allergy Verified 10/21/20 13:15 Exam Vital signs and Labs for Last 24 Hours: Temp Pulse Resp BP Pulse Ox 99.2 F 110 H 19 124/95 H 100 07/01/21 04:00 07/01/21 06:00 07/01/21 06:00 07/01/21 06:00 07/01/21 06:00 Laboratory Results - last 24 hr 06/30/21 12:30: WBC 34.6 H*, RBC 4.51 L, Hgb 14.6, Hct 43.0, MCV 95.4 H, MCH 32.5 H, MCHC 34.0, RDW 13.9, Plt Count 375, MPV 9.2, Neut % (Auto) 89.0 H, Lymph % (Auto) 4.8 L, Coal % (Auto) 5.2, Eos % (Auto) 0.0 L, Baso % (Auto) 0.9, Neut # (Auto) 30.8 H, Lymph # (Auto) 1.7, Coal # (Auto) 1.8 H, Eos # (Auto) 0.0, Baso # (Auto) 0.3 H, Total Counted 100, Neutrophils % (Manual) 75, Band Neutrophils % 3.0, Lymphocytes % (Manual) 14, Monocytes % (Manual) 8, Platelet Estimate Normal, RBC Morphology Normal 06/30/21 12:30: PT 21.6 H, INR 1.92 H 06/30/21 12:30: Sodium 117 L, Potassium 4.2, Chloride 78 L, Carbon Dioxide 28, Anion Gap 15.2 H, BUN 19, Creatinine 0.70, Estimated Creat Clear 104, Estimated GFR 109, Est GFR ( Amer) 131, Glucose 148 H, Calcium 8.8, Total Bilirubin 1.4 H, AST 40, ALT 36, Alkaline Phosphatase 225 H, Troponin I 0.02, NT-Pro-B Natriuret Pep 1260 H, Total Protein 7.2, Albumin 3.6, Globulin 3.6 H, Albumin/Globulin Ratio 1.0 L 06/30/21 12:30: Lactate 1.6 06/30/21 16:40: SARS-CoV-2 (PCR) Not detected, Influenza A Untype (PCR) Not detected, Influenza Type B (PCR) Not detected 06/30/21 17:00: Troponin I 0.01 07/01/21 05:25: WBC 31.7 H*, RBC 4.20 L, Hgb 13.5 L, Hct 40.3 L, MCV 96.2 H, MCH 32.2 H, MCHC 33.5, RDW 14.0, Plt Count 289, MPV 9.1, Neut % (Auto) 88.6 H, Lymph % (Auto) 4.8 L, Coal % (Auto) 6.2, Eos % (Auto) 0.1, Baso % (Auto) 0.2, Neut # (Auto) 28.1 H, Lymph # (Auto) 1.5, Coal # (Auto) 2.0 H, Eos # (Auto) 0.0, Baso # (Auto) 0.1 07/01/21 05:25: Sodium 119 L, Potassium 3.7, Chloride 84 L, Carb
[2021-07-01 08:31] LABS: Eosinophils % 1 % (0-3); Lymphocytes % 3 % (10-50); Monocytes % 8 % (2-9); Neutrophils % 88 % (42-76); Total Cells Counted 100
[2021-07-01 08:32] LABS: Hypochromasia 1+; Macrocytosis 1+; Platelet Estimate Normal
--- NOTE | 2021-07-01 09:31 | HMH.PHACONS ---
- Pharmacy Consult Date: 07/01/21 Time: 09:31 Referring provider: AMI Reason for Consult:: VANCOMYCIN DOSING Allergies and ADEs:: Allergies Allergy/AdvReac Type Severity Reaction Status Date / Time No Known Allergies Allergy Verified 10/21/20 13:15 Home Medications:: Home Medications Medication Instructions Recorded Confirmed Type Amlodipine Besylate [Amlodipine 10 mg PO DAILY 10/04/20 07/01/21 History 10mg Tab] Famotidine [Acid Controller] 20 mg PO DAILY 10/04/20 07/01/21 History Metoprolol Tartrate 25 mg PO BID 10/04/20 07/01/21 History Potassium Chloride 20 meq PO DAILY 10/04/20 07/01/21 History Warfarin Sodium 5 mg PO DAILY 10/04/20 07/01/21 History allopurinoL [Allopurinol 300mg 300 mg PO DAILY 10/04/20 07/01/21 History tablet] hydroCHLOROthiazide [HCTZ 25mg 25 mg PO DAILY 10/04/20 07/01/21 History tab] lisinopriL [Lisinopril 40mg Tablet] 40 mg PO DAILY 10/04/20 07/01/21 History Height: 1.83 m Weight: 110.421 kg Laboratory Results:: Laboratory Results - last 24 hr 06/30/21 12:30: WBC 34.6 H*, RBC 4.51 L, Hgb 14.6, Hct 43.0, MCV 95.4 H, MCH 32.5 H, MCHC 34.0, RDW 13.9, Plt Count 375, MPV 9.2, Neut % (Auto) 89.0 H, Lymph % (Auto) 4.8 L, Cobb % (Auto) 5.2, Eos % (Auto) 0.0 L, Baso % (Auto) 0.9, Neut # (Auto) 30.8 H, Lymph # (Auto) 1.7, Cobb # (Auto) 1.8 H, Eos # (Auto) 0.0, Baso # (Auto) 0.3 H, Total Counted 100, Neutrophils % (Manual) 75, Band Neutrophils % 3.0, Lymphocytes % (Manual) 14, Monocytes % (Manual) 8, Platelet Estimate Normal, RBC Morphology Normal 06/30/21 12:30: PT 21.6 H, INR 1.92 H 06/30/21 12:30: Sodium 117 L, Potassium 4.2, Chloride 78 L, Carbon Dioxide 28, Anion Gap 15.2 H, BUN 19, Creatinine 0.70, Estimated Creat Clear 104, Estimated GFR 109, Est GFR ( Amer) 131, Glucose 148 H, Calcium 8.8, Total Bilirubin 1.4 H, AST 40, ALT 36, Alkaline Phosphatase 225 H, Troponin I 0.02, NT-Pro-B Natriuret Pep 1260 H, Total Protein 7.2, Albumin 3.6, Globulin 3.6 H, Albumin/Globulin Ratio 1.0 L 06/30/21 12:30: Lactate 1.6 06/30/21 16:40: SARS-CoV-2 (PCR) Not detected, Influenza A Untype (PCR) Not detected, Influenza Type B (PCR) Not detected 06/30/21 17:00: Troponin I 0.01 07/01/21 05:25: WBC 31.7 H*, RBC 4.20 L, Hgb 13.5 L, Hct 40.3 L, MCV 96.2 H, MCH 32.2 H, MCHC 33.5, RDW 14.0, Plt Count 289, MPV 9.1, Neut % (Auto) 88.6 H, Lymph % (Auto) 4.8 L, Cobb % (Auto) 6.2, Eos % (Auto) 0.1, Baso % (Auto) 0.2, Neut # (Auto) 28.1 H, Lymph # (Auto) 1.5, Cobb # (Auto) 2.0 H, Eos # (Auto) 0.0, Baso # (Auto) 0.1, Total Counted 100, Neutrophils % (Manual) 88 H, Lymphocytes % (Manual) 3 L, Monocytes % (Manual) 8, Eosinophils % (Manual) 1, Platelet Estimate Normal, Hypochromasia 1+, Macrocytosis 1+ 07/01/21 05:25: Sodium 119 L, Potassium 3.7, Chloride 84 L, Carbon Dioxide 26, Anion Gap 12.7, BUN 14 D, Creatinine 0.60 L, Estimated Creat Clear 92, Estimated GFR 130, Est GFR ( Amer) 157, Glucose 138 H, Calcium 7.9 L, Total Bilirubin 1.6 H, AST 33, ALT 28, Alkaline Phosphatase 178 H, Total Protein 5.8 L, Albumin 2.8 L D, Globulin 3.0, Albumin/Globulin Ratio 0.9 L, TSH 1.19 Medical History: Reports:: Atrial Fibrillation, Hypertension Denies:: Cancer, Diabetes Mellitus Type 1, Diabetes Mellitus Type 2, MRSA Assessment and Plan (1) Leukocytosis Status: Acute Category: Medical Code(s): D72.829 - Elevated white blood cell count, unspecified (2) Essential hypertension Status: Chronic Category: Medical Code(s): I10 - Essential (primary) hypertension (3) Atrial fibrillation with rapid ventricular response Status: Acute Category: Medical Code(s): I48.91 - Unspecified atrial fibrillation (4) Cellulitis and abscess of finger, unspecified Status: Acute Category: Medical Code(s): L03.019 - Cellulitis of unspecified finger; L02.519 - Cutaneous abscess of unspecified hand (5) Cellulitis, neck Status: Acute Category: Medical Code(s): L03.221 - Cellulitis of neck - Assessment an
--- NOTE | 2021-07-01 11:22 | SW/DCPLANNER ---
Addendum entered by [facility] 07/08/21 09:59: This patient will discharge to [facility] today. I have informed Jazzy of this plan and regarding wound care on neck. I also spoke with patients brother (Jarvis) whom is agreeable to transport. Patients nurse (Tri) is aware of situation. Addendum entered by [facility] 07/07/21 09:07: I have informed Jazzy w/ [facility] that the plan is for Dr Infante to see this patient tomorrow prior to discharge. Patient is not ready for discharge today I will continue to update patients family and Jazzy. Addendum entered by [facility] 07/06/21 13:39: Jazzy stated that she will be meeting patients brother (Jarvis) tomorrow to complete paperwork. Updated rehab info has been faxed to Jazzy and patient has been accepted to [facility]. I will follow up with Jazzy once patient is medically stable for discharge. Addendum entered by [facility] 07/06/21 12:58: Jazzy with [facility] has stated that she can accept this patient pending update PT notes. I have contacted rehab dept ([facility]) and asked that PT see this patient this afternoon. I will fax updated therapy notes once available in the computer. Addendum entered by [facility] 07/06/21 11:03: The Admissions Dept is not in at [facility]: patient information not faxed at this time. Addendum entered by [facility] 07/06/21 10:40: I spoke with this patient this AM with both brothers present regarding placement at time of discharge. Patient stated that he would only be agreeable to placement if his brother took care of his brother that was living with him prior to admission (brother is agreeable) and only wants short term. I explained to patient that we would need to search out of town due to insurance: patient is agreeable. Patient information will be faxed to [facility] and [facility] in [place] if in network with patients insurance. Original Note: I spoke with this patients three brothers today: Jarvis, Rafael and Oskar. Jarvis stated that he does most of the decision making if patient needs assistance. Jarvis stated that Oskar is handicap but able to take care of himself and he lives with this patient. Jarvis lives about 7 miles away from patient and is at patients home once-twice a week and Rafael lives in [place] and spends every Tuesday at patients home. Jarvis stated that while patient is in the hospital Oskar is residing with him. Jarvis and Rafael have both stated that patient appears to be more coherent than he was yesterday. Jarvis stated that the ultimate goal for this patient would be to return home at time of discharge. Jarvis stated that patient is able to do for himself at home and drives/completes grocery shopping w/ Oskar. I have informed Rafael Conley and Oskar to be speaking with each other regarding discharge plans for patient: placement vs home with home health and assistance. I will continue to follow up with patient and siblings. Discharge date is unknown at this time.
--- NOTE | 2021-07-01 12:13 | P.PN_ITS ---
[facility] Anesthesia Checklist - Structural Data Admitted From: Inpatient Planned Operative Procedure/s: i/d neck abcess Consent for Planned Operative Procedure(s) Verified: Yes - Airway Assessment C-Spine Mobility Assessed: Yes TMJ Mobility Assessed: Yes Dentition: Edentulous - Neurological Assessment Level of Consciousness: Awake, Alert, Appropriate - Anesthesia Plan Anesthesia Risk discussed: Yes Anesthesia Plan: Verified ASA Class: III Anesthesia Type: General [facility] History I have reviewed the patient's past medical history: Yes Medical History: Reports:: Atrial Fibrillation, Hypertension Denies:: Cancer, Diabetes Mellitus Type 1, Diabetes Mellitus Type 2, MRSA *Have you ever received a pneumonia vaccine?: No *Have you received a flu vaccine this season?: No Other Medical History: Reports: Arthritis Anesthesia experience/problems:: none Other Surgeries: Yes: Colonoscopy Amputation: No Fractures: No - *Social History Last grade of school completed: 7th or 8th Smoking Status: Never smoker Tobacco Type: cigarettes Alcohol Intake: never Substance Use Type: denies use *Occupational Status:: other Housing: house Household Members: family *Travel in the last 8 weeks: None Family Hx:: No significant family history
--- NOTE | 2021-07-01 12:14 | HMH.ANESI ---
[facility] Anesthesia Record Part I Intake, IV Amount: 750 Estimated blood loss (mL): 0 Urine output (mL): 0 Blood Pressure: 108/64 SaO2: 97 Pulse Rate: 87 Respiratory Rate: 12 Temperature: 97.9 F Patient is:: Drowsy, Stable Stable to PACU at:: 12:10
--- NOTE | 2021-07-01 12:18 | HMH.OPNOTE ---
Date of procedure: 07/01/21 Pre-op Diagnosis:: Complex posterior neck abscess Complex right third finger abscess (paronychia/felon/proximal abscess) Post-op Diagnosis:: Same with the addition of: Massive posterior neck carbuncle Procedure performed:: Incision and drainage of posterior neck abscess (2 separate cavities) with expression of purulent fluid from follicles (carbuncle) Focal incision and drainage of right third finger paronychia/felon/proximal abscess Surgeon:: Vinnie Infante MD INTERNATIONAL SALES MANAGER:: Gregorio Mccormack Anesthesia: LMA Estimated blood loss (mL): 10 Operative findings:: Masses posterior carbuncle with large volume of purulent fluid expressed from 2 separate wounds, as well as, from multiple hair follicles throughout Complex right third finger paronychia/felon with proximal abscess to region overlying PIP Operative note:: After informed consent was obtained the patient was taken to the operating room and placed in the supine position. General anesthesia with laryngeal mask airway was achieved and he was transferred to the left lateral decubitus position. His right third finger and his posterior neck were prepped and draped in a sterile fashion. Evaluation of the right third finger revealed complex abscess to include felon/paronychia/proximal abscess projecting to region overlying PIP joint. Superficial debridement of necrotic tissue and opening along the lateral space distally, as well as, region just proximal to nail bed was completed with electrocautery. Purulent fluid was expressed. Dressings were applied. Attention was then turned to the posterior neck. 2 separate elliptical incisions were made along the right and left posterior neck central line. A massive carbuncle was confirmed with increased drainage from the debridement sites. Significant drainage was also noted from multiple follicles throughout the region. Fluid was obtained for Gram stain and culture. The wounds were packed open and a dry dressing was placed along the posterior neck. The patient was then transferred to recovery after removal of his laryngeal mask airway. Condition: stable Disposition: PACU Specimens:: Fluid from posterior neck for Gram stain/culture Complications:: No immediate
--- NOTE | 2021-07-01 13:34 | HMH.ACPN2 ---
Internal Medicine - PN: Subj *Date: 07/01/21 *Time: 08:15 Interval history: pt laying in bed receiving echo plans to have i&d today Exam Vital signs and Labs for Last 24 Hours: Temp Pulse Resp BP Pulse Ox 97.9 F 87 12 108/64 L 97 07/01/21 12:15 07/01/21 12:15 07/01/21 12:15 07/01/21 12:15 07/01/21 10:00 Laboratory Results - last 24 hr 06/30/21 12:30: Total Counted 100, Neutrophils % (Manual) 75, Band Neutrophils % 3.0, Lymphocytes % (Manual) 14, Monocytes % (Manual) 8, Platelet Estimate Normal, RBC Morphology Normal 06/30/21 12:30: Troponin I 0.02, NT-Pro-B Natriuret Pep 1260 H 06/30/21 16:40: SARS-CoV-2 (PCR) Not detected, Influenza A Untype (PCR) Not detected, Influenza Type B (PCR) Not detected 06/30/21 17:00: Troponin I 0.01 07/01/21 05:25: WBC 31.7 H*, RBC 4.20 L, Hgb 13.5 L, Hct 40.3 L, MCV 96.2 H, MCH 32.2 H, MCHC 33.5, RDW 14.0, Plt Count 289, MPV 9.1, Neut % (Auto) 88.6 H, Lymph % (Auto) 4.8 L, [place] % (Auto) 6.2, Eos % (Auto) 0.1, Baso % (Auto) 0.2, Neut # (Auto) 28.1 H, Lymph # (Auto) 1.5, [place] # (Auto) 2.0 H, Eos # (Auto) 0.0, Baso # (Auto) 0.1, Total Counted 100, Neutrophils % (Manual) 88 H, Lymphocytes % (Manual) 3 L, Monocytes % (Manual) 8, Eosinophils % (Manual) 1, Platelet Estimate Normal, Hypochromasia 1+, Macrocytosis 1+ 07/01/21 05:25: Sodium 119 L, Potassium 3.7, Chloride 84 L, Carbon Dioxide 26, Anion Gap 12.7, BUN 14 D, Creatinine 0.60 L, Estimated Creat Clear 92, Estimated GFR 130, Est GFR ( Amer) 157, Glucose 138 H, Calcium 7.9 L, Total Bilirubin 1.6 H, AST 33, ALT 28, Alkaline Phosphatase 178 H, Total Protein 5.8 L, Albumin 2.8 L D, Globulin 3.0, Albumin/Globulin Ratio 0.9 L, TSH 1.19 I & O for Last 24 hours: Intake & Output 06/29/21 06/30/21 07/01/21 07/02/21 11:59 11:59 11:59 11:59 Intake Total 0 / 0 750 / 750 Output Total 700 / 700 Balance -700 / -700 750 / 750 Weight 243 lb 7 oz 242 lb 8.136 oz Microbiology Reports for the Last 24 Hours: Microbiology 06/30/21 19:30 Hand,Right Gram Stain - Final 06/30/21 19:30 Hand,Right Wound Culture - Preliminary 06/30/21 19:30 Neck Gram Stain - Final - Constitutional no acute distress, chronically ill appearing - *Routine HEENT Exam Head: Present: normocephalic Eye: Present: PERRL ENT: Present: mucous membranes moist - *Routine Neck Exam Present: supple. Absent: lymphadenopathy - *Routine Respiratory Exam Present: CTA bilaterally - *Routine Cardiovascular Exam Present: irregular rhythm - *Routine Abdominal Exam Present: soft, normoactive bowel sounds. Absent: tenderness - *Routine Extremities Exam Absent: cyanosis, clubbing, edema - *Routine Skin Exam Present: warm, wounds. Absent: rash Comments: back of neck honey comb appearance with pus and rt 2nd fingers swollen, purple area with abscess to end of finger - *Routine Neurological Exam Present: alert - Routine Psychiatric Exam Present: normal affect Assessment and Plan (1) Leukocytosis Status: Acute Category: Medical Code(s): D72.829 - Elevated white blood cell count, unspecified (2) Essential hypertension Status: Chronic Category: Medical Code(s): I10 - Essential (primary) hypertension (3) Atrial fibrillation with rapid ventricular response Status: Acute Category: Medical Code(s): I48.91 - Unspecified atrial fibrillation (4) Cellulitis and abscess of finger, unspecified Status: Acute Category: Medical Code(s): L03.019 - Cellulitis of unspecified finger; L02.519 - Cutaneous abscess of unspecified hand (5) Cellulitis, neck Status: Acute Category: Medical Code(s): L03.221 - Cellulitis of neck (6) Afib Status: Acute Category: Medical Code(s): I48.91 - Unspecified atrial fibrillation - Assessment and plan all Dx Assessment and Plan for all problems:: rounded with dr young all orders per dr young surgery today cardiology consult
[2021-07-01 14:00] LABS: Procalcitonin 0.521 ng/mL (0.0-2.0)
--- NOTE | 2021-07-01 14:20 | SUR.PHASEI ---
1235 Report given to Dinorah Ramirez RN prior to taking pt up to room
--- NOTE | 2021-07-01 17:58 | PC.NURSE ---
PT IS RESTING IN BED AT THIS TIME. WHEN PT ARRIVED BACK TO THE FLOOR AT 1300 FROM SURGERY HE WAS VERY AGITATED AND RESTLESS. PT HAD A ONE TIME DOSE OF CARDIZEM 180 PO AT 1415 PER CARDIOLOGY. PT CONTINUOUSLY PICKED AT HIS DRESSING ON HIS RT FINGER.PULLED OFF TELEMETRY LEADS/PULSE OX/GOWN. PT STATED HE WANTED OUT OF THE BED SO STAFF TRANSFERRED PT TO THE RECLINER WHICH IS WHERE HE WAS AT FOR A COUPLE OF HOURS BUT HOWEVER WAS STILL VERY RESTLESS. HR WAS 120-130'S UNTIL PT GOT A BATH AND BACK TO BED. PT STATED HIS FINGER WAS REALLY HURTING (MEDICATED PER DEC) AND PT WAS POSITIONED ON HIS RT SIDE TO SLEEP. HR HAS MAINTAINED 90-115 SINCE 1700. O2 SATURATION HAS MAINTAINED 90-96% ROOM AIR. JOSIAH MARTINEZ NOTIFIED AND SHE STATED TO CONTINUE TO MONITOR PT AND KEEP TRYING TO WEAN THE CARDIZEM DRIP. PT HAS ANOTHER DOSE OF METOPROLOL 25 THIS EVENING SCHEDULED AT 2100. DRESSING TO THE BACK OF THE NECK WAS SATURATED AND HAD TO BE REINFORCED WITH 4X4 AND TAPE. 4X4 AND COBAN DRESSING NOTED TO THE RT THIRD FINGER. EXCORATION NOTED TO THE BUTTOCKS. SCATTERED ABRASIONS NOTED TO FOREHEAD/BLE. PT ALERT TO SELF ONLY AT THIS TIME. WILL CONTINUE TO MONITOR.
--- NOTE | 2021-07-01 21:07 | PC.NURSE ---
Cardizem gtt turned off at 2049. HR sustaining in the 90s, afib on tele.
[2021-07-02] VITALS (15 sets, daily range): BP systolic 100–157; BP diastolic 52–85; PULSE 76–128; RESP 14–20; TEMP 36.1–37.2; O2SAT 90–100; BMI 33.4
--- NOTE | 2021-07-02 03:09 | PC.NURSE ---
Pt has been alert to self this shift and has had several moments of confusion. Cardizem gtt was turned off at 2049, pt HR has ranged in the 80s-90s since, afib on tele. drsgs are CDI. Pt voiding in urinal with 1 assist, UOP is dark yellow but clear. Lungs are CTA, on room air for majority of shift. Pt placed on 2L NC while sleeping due to occasional sleep apnea. bowel sounds x4, abd soft and nontender. VSS, call light in reach, no concerns at this time.
[2021-07-02 06:23] LABS: Basophils # 0.1 K/mm3 (0-0.2); Basophils % 0.3 % (0.1-2.0); Eosinophils # 0.1 K/mm3 (0.0-0.4); Eosinophils % 0.3 % (0.1-12.0); Hematocrit 38.5 % (42.0-52.0); Hemoglobin 12.7 g/dL (14.1-18.0); Lymphocytes # 1.9 K/mm3 (0.7-4.5); Lymphocytes % 6.3 % (10-50); Mean Corpuscular HGB Conc 33.1 g/dL (31.8-35.4); Mean Corpuscular Hemoglobin 32.4 pg (27.0-31.2); Mean Corpuscular Volume 97.9 fl (80-94); Mean Platelet Volume 9.2 fl (7.4-10.4); Monocytes # 1.9 K/mm3 (0.1-1.0); Monocytes % 6.4 % (1.7-9.3); Neutrophils # 25.8 K/mm3 (1.8-7.8); Neutrophils % 86.7 % (37.0-80.0); Platelet Count 292 K/mm3 (142-424); Red Blood Count 3.93 M/mm3 (4.60-6.20); White Blood Count 29.8 K/mm3 (4.8-10.8)
[2021-07-02 06:24] LABS: MANUAL DIFFERENTIAL MANUAL DIFFERENTIAL (MANUAL DIFF)
[2021-07-02 06:35] LABS: Anion Gap 10.7 mEq/L (5-15); Blood Urea Nitrogen 14 mg/dl (9-20); Calcium 7.8 mg/dl (8.4-10.2); Carbon Dioxide 29 mmol/L (22.0-30.0); Chloride 85 mmol/L (98-107); Creatinine Clearance Estimated 93 mL/min (50-200); Estimated Glomerular Filt Rate 109 ml/min (>60); GFR (African American) 131 ML/MIN (>60); Glucose 122 mg/dl (74-100); Potassium 3.7 mmoL/L (3.5-5.1); Sodium 121 mmol/L (136-145)
[2021-07-02 06:45] LABS: Lymphocytes % 8 % (10-50); Macrocytosis 1+; Monocytes % 4 % (2-9); Neutrophils % 88 % (42-76); Platelet Estimate Normal; Total Cells Counted 100
--- NOTE | 2021-07-02 09:25 | HMH.PNCARD ---
Subjective Date: 07/02/21 Time: 09:00 Interval history: 80-year-old male admitted to [facility] with sepsis and atrial fibrillation with RVR one day ago. Patient is a very poor historian. Patient does appear to be more talkative and is able to recall more information today. Patient denies chest pain, tightness or pressure. Patient denies shortness of breath. Patient complains of pain on the posterior portion of the neck. Patient did undergo debridement of cellulitis of the posterior portion of the neck yesterday per surgery. Pain management is being managed by PCP and surgery. Patient noted with multiple skin issues such as cellulitis in the back of the neck which appears to be MRSA. Right third finger also noted with cellulitis and possible MRSA. Patient does have history of atrial fibrillation in which he has been on Coumadin in the past prior to admission. monitor worker reveals atrial fibrillation with a heart rate of 78bpm. Patient has been off Cardizem drip for over 12 hours. Heart rate is controlled at this time. Blood pressure stable. Patient states he has fallen several times in the last few weeks. Patient does have multiple abrasions noted on the forehead and lower extremities. Recommend not to restart Coumadin for anticoagulant at this time due to falls. Patient is currently receiving Lovenox injections per PCP management. Echocardiogram results are pending at this time. Pending on the results of the echocardiogram, medication and treatment therapies may be recommended. Discussed plan of care with Dr. Mayo. Orders received and recommended from Dr. Mayo. Recommend not to restart Coumadin for anticoagulation due to frequent falls. If patient is unable to tolerate anticoagulant for his atrial fibrillation, patient may be a candidate for watchman device. This may be discussed on an outpatient basis at follow-up with cardiology. Continue Lovenox injections per PCP management. Please notify cardiology of any changes in patient status. Thank you for allowing cardiology to participate in the care of this patient. Exam Vital signs and Labs for Last 24 Hours: Temp Pulse Resp BP Pulse Ox 98.3 F 94 H 18 134/85 95 07/02/21 06:00 07/02/21 08:00 07/02/21 08:00 07/02/21 08:00 07/02/21 08:00 Laboratory Results - last 24 hr 07/01/21 05:25: C-Reactive Protein 224.0 H, Procalcitonin 0.521 07/02/21 05:50: WBC 29.8 H*, RBC 3.93 L, Hgb 12.7 L, Hct 38.5 L, MCV 97.9 H, MCH 32.4 H, MCHC 33.1, RDW 14.0, Plt Count 292, MPV 9.2, Neut % (Auto) 86.7 H, Lymph % (Auto) 6.3 L, [place] % (Auto) 6.4, Eos % (Auto) 0.3, Baso % (Auto) 0.3, Neut # (Auto) 25.8 H, Lymph # (Auto) 1.9, [place] # (Auto) 1.9 H, Eos # (Auto) 0.1, Baso # (Auto) 0.1, Total Counted 100, Neutrophils % (Manual) 88 H, Lymphocytes % (Manual) 8 L, Monocytes % (Manual) 4, Platelet Estimate Normal, Macrocytosis 1+ 07/02/21 05:50: Sodium 121 L, Potassium 3.7, Chloride 85 L, Carbon Dioxide 29, Anion Gap 10.7, BUN 14, Creatinine 0.70, Estimated Creat Clear 93, Estimated GFR 109, Est GFR ( Amer) 131, Glucose 122 H, Calcium 7.8 L I & O for Last 24 hours: Intake & Output 06/29/21 06/30/21 07/01/21 07/02/21 23:59 23:59 23:59 23:59 Intake Total 1230 / 1470 420 / 420 Output Total 250 / 500 925 / 1125 200 / 200 Balance -250 / -500 305 / 345 220 / 220 Weight 243 lb 7 oz 242 lb 8.136 oz 247 lb Microbiology Reports for the Last 24 Hours: Microbiology 06/30/21 19:30 Neck Gram Stain - Final 06/30/21 19:30 Neck Wound Culture - Preliminary Gram Positive Cocci 06/30/21 19:30 Hand,Right Gram Stain - Final 06/30/21 19:30 Hand,Right Wound Culture - Preliminary Gram Positive Cocci 06/30/21 20:40 Blood Blood Culture - Preliminary Gram Positive Cocci 06/30/21 20:40 Blood Blood Culture - Preliminary Gram Posi
[2021-07-02 09:30] LABS: Vancomycin,Trough 9.4 ug/mL (5.0-10.0)
--- NOTE | 2021-07-02 09:33 | HMH.GSPN ---
Subjective Narrative: The patient is more conversant and states that he feels better today . He claims to be having some difficulty achieving a comfortable position in the bed but otherwise feels pretty good . Progress Note: A&P (1) Leukocytosis Status: Acute (2) Essential hypertension Status: Chronic (3) Atrial fibrillation with rapid ventricular response Status: Acute (4) Cellulitis and abscess of finger, unspecified Status: Acute Assessment and plan: Stable status post limited/focal incision and drainage yesterday. Dressing changes twice daily If he does not show continued improvement, orthopedic evaluation reasonable. (5) Cellulitis, neck Status: Acute Assessment and plan: Complex massive carbuncle with 2 areas of incision and drainage/debridement. Ongoing purulent drainage from open wounds, as well as, multiple follicles/pores. No focal large pocket of purulence. Continue antibiotics Continue dressing changes (6) Afib Status: Acute Exam Vital signs and Labs for Last 24 Hours: Temp Pulse Resp BP Pulse Ox 98.3 F 94 H 18 134/85 95 07/02/21 06:00 07/02/21 08:00 07/02/21 08:00 07/02/21 08:00 07/02/21 08:00 Laboratory Results - last 24 hr 07/01/21 05:25: C-Reactive Protein 224.0 H, Procalcitonin 0.521 07/02/21 05:50: WBC 29.8 H*, RBC 3.93 L, Hgb 12.7 L, Hct 38.5 L, MCV 97.9 H, MCH 32.4 H, MCHC 33.1, RDW 14.0, Plt Count 292, MPV 9.2, Neut % (Auto) 86.7 H, Lymph % (Auto) 6.3 L, [place] % (Auto) 6.4, Eos % (Auto) 0.3, Baso % (Auto) 0.3, Neut # (Auto) 25.8 H, Lymph # (Auto) 1.9, [place] # (Auto) 1.9 H, Eos # (Auto) 0.1, Baso # (Auto) 0.1, Total Counted 100, Neutrophils % (Manual) 88 H, Lymphocytes % (Manual) 8 L, Monocytes % (Manual) 4, Platelet Estimate Normal, Macrocytosis 1+ 07/02/21 05:50: Sodium 121 L, Potassium 3.7, Chloride 85 L, Carbon Dioxide 29, Anion Gap 10.7, BUN 14, Creatinine 0.70, Estimated Creat Clear 93, Estimated GFR 109, Est GFR ( Amer) 131, Glucose 122 H, Calcium 7.8 L I & O for Last 24 hours: Intake & Output 06/29/21 06/30/21 07/01/21 07/02/21 11:59 11:59 11:59 11:59 Intake Total 0 / 0 1650 / 1650 Output Total 700 / 700 675 / 675 Balance -700 / -700 975 / 975 Weight 243 lb 7 oz 247 lb Microbiology Reports for the Last 24 Hours: Microbiology 06/30/21 19:30 Neck Gram Stain - Final 06/30/21 19:30 Neck Wound Culture - Preliminary Gram Positive Cocci 06/30/21 19:30 Hand,Right Gram Stain - Final 06/30/21 19:30 Hand,Right Wound Culture - Preliminary Gram Positive Cocci 06/30/21 20:40 Blood Blood Culture - Preliminary Gram Positive Cocci 06/30/21 20:40 Blood Blood Culture - Preliminary Gram Positive Cocci - Constitutional no acute distress, cooperative - *Routine Extremities Exam Comments: Right third finger with persistent swelling and patchy necrosis. - *Routine Skin Exam Comments: Massive complex posterior neck carbuncle with persistent induration and focal cellulitis. No sign of spreading cellulitis. Open wounds with continued drainage. Some drainage from follicles.
--- NOTE | 2021-07-02 09:51 | HMH.ACPN2 ---
Internal Medicine - PN: Subj *Date: 07/02/21 *Time: 20:53 Interval history: 80-year-old male patient sitting up in bed dressing to back of neck with serosanguineous drainage. He reports his neck feels better, still complains of pain to right middle finger and voices multiple complaints regarding house and family issues. Exam Vital signs and Labs for Last 24 Hours: Temp Pulse Resp BP Pulse Ox 98.3 F 94 H 18 134/85 95 07/02/21 06:00 07/02/21 08:00 07/02/21 08:00 07/02/21 08:00 07/02/21 08:00 Laboratory Results - last 24 hr 07/01/21 05:25: C-Reactive Protein 224.0 H, Procalcitonin 0.521 07/02/21 05:50: WBC 29.8 H*, RBC 3.93 L, Hgb 12.7 L, Hct 38.5 L, MCV 97.9 H, MCH 32.4 H, MCHC 33.1, RDW 14.0, Plt Count 292, MPV 9.2, Neut % (Auto) 86.7 H, Lymph % (Auto) 6.3 L, [place] % (Auto) 6.4, Eos % (Auto) 0.3, Baso % (Auto) 0.3, Neut # (Auto) 25.8 H, Lymph # (Auto) 1.9, [place] # (Auto) 1.9 H, Eos # (Auto) 0.1, Baso # (Auto) 0.1, Total Counted 100, Neutrophils % (Manual) 88 H, Lymphocytes % (Manual) 8 L, Monocytes % (Manual) 4, Platelet Estimate Normal, Macrocytosis 1+ 07/02/21 05:50: Sodium 121 L, Potassium 3.7, Chloride 85 L, Carbon Dioxide 29, Anion Gap 10.7, BUN 14, Creatinine 0.70, Estimated Creat Clear 93, Estimated GFR 109, Est GFR ( Amer) 131, Glucose 122 H, Calcium 7.8 L 07/02/21 08:43: Vancomycin Trough 9.4 I & O for Last 24 hours: Intake & Output 06/29/21 06/30/21 07/01/21 07/02/21 23:59 23:59 23:59 23:59 Intake Total 1230 / 1470 420 / 420 Output Total 250 / 500 925 / 1125 200 / 200 Balance -250 / -500 305 / 345 220 / 220 Weight 243 lb 7 oz 242 lb 8.136 oz 247 lb Microbiology Reports for the Last 24 Hours: Microbiology 06/30/21 19:30 Neck Gram Stain - Final 06/30/21 19:30 Neck Wound Culture - Preliminary Gram Positive Cocci 06/30/21 19:30 Hand,Right Gram Stain - Final 06/30/21 19:30 Hand,Right Wound Culture - Preliminary Gram Positive Cocci 06/30/21 20:40 Blood Blood Culture - Preliminary Gram Positive Cocci 06/30/21 20:40 Blood Blood Culture - Preliminary Gram Positive Cocci - Constitutional no acute distress - *Routine HEENT Exam Head: Present: normocephalic Eye: Present: EOMI ENT: Present: mucous membranes moist - *Routine Neck Exam Present: trachea midline. Absent: tracheal deviation - *Routine Respiratory Exam Present: CTA bilaterally. Absent: accessory muscle use - *Routine Cardiovascular Exam Present: irregularly irregular - *Routine Abdominal Exam Present: soft, normoactive bowel sounds. Absent: tenderness - *Routine Extremities Exam Present: full ROM, pulses intact. Absent: cyanosis, clubbing - *Routine Skin Exam Present: dry, warm, wounds Comments: Dressing to upper back/neck with serosanguineous drainage Dressing to right hand third digit - *Routine Neurological Exam Present: alert, oriented X3. Absent: motor deficit - Routine Psychiatric Exam Present: normal affect, cooperative Assessment and Plan (1) Leukocytosis Status: Acute Category: Medical Code(s): D72.829 - Elevated white blood cell count, unspecified (2) Essential hypertension Status: Chronic Category: Medical Code(s): I10 - Essential (primary) hypertension (3) Atrial fibrillation with rapid ventricular response Status: Acute Category: Medical Code(s): I48.91 - Unspecified atrial fibrillation (4) Cellulitis and abscess of finger, unspecified Status: Acute Category: Medical Code(s): L03.019 - Cellulitis of unspecified finger; L02.519 - Cutaneous abscess of unspecified hand (5) Cellulitis, neck Status: Acute Category: Medical Code(s): L03.221 - Cellulitis of neck (6) Afib Status: Acute Category: Medical Code(s): I48.91 - Unspecified atrial fibrillation - Assessment and plan all Dx Assessment and Plan for
--- NOTE | 2021-07-02 10:35 | XR_ITS ---
PROCEDURE: XR HAND RT MIN 3V CLINICAL INDICATION: Pain/edema COMPARISON: No exams were available for comparison FINDINGS: There is diffuse soft tissue swelling of the 3rd finger. No acute fracture or dislocation is evident. No lytic or blastic change. A well-circumscribed small calcific density is present along the volar aspect of the distal phalanx of the 2nd digit and along the radial aspect of the 4th metacarpal distally. This could be due to old injuries. The joint spaces are well-preserved. No significant degenerative/arthritic changes. No erosive changes evident. Other findings:None. IMPRESSION: Diffuse soft tissue swelling of the 3rd digit. No radiopaque foreign body or soft tissue gas evident. Dictated by: Jarvis Oliveira MD 07/02/2021 11:51 Jarvis Oliveira MD in [facility] 07/02/2021 11:51
--- NOTE | 2021-07-02 10:52 | P.PN_ITS ---
[facility] Anesthesia Record Part II Discharge Time: 12:40 Destination: Medical Surgical Department PACU nurse assessment reviewed?: Yes Patient Condition:: Good Anesthesia Complications:: None Swallowing reflex intact?: Yes Cyanosis?: No Blood Pressure: 129/72 Pulse Rate: 95 Temperature: 97 F Mental Status: Alert & Oriented Pain level:: 0 Nausea and/or vomitting:: None Intake, IV Amount: 0
--- NOTE | 2021-07-02 10:55 | PC.NURSE ---
Notified aTnna about Dr. Claros Consult, due to Dr. Claros being in the OR.
[2021-07-02 13:29] LABS: Vancomycin,Peak 19.6 ug/ml (11-39)
--- NOTE | 2021-07-02 13:33 | P.CONPHA_ITS ---
- Pharmacy Consult Date: 07/02/21 Time: 13:33 Referring provider: DR. MUELLER Reason for Consult:: VANCOMYCIN LEVELS AND DOSE CHANGE Allergies and ADEs:: Allergies Allergy/AdvReac Type Severity Reaction Status Date / Time No Known Allergies Allergy Verified 10/21/20 13:15 Home Medications:: Home Medications Medication Instructions Recorded Confirmed Type Amlodipine Besylate [Amlodipine 10 mg PO DAILY 10/04/20 07/01/21 History 10mg Tab] Famotidine [Acid Controller] 20 mg PO DAILY 10/04/20 07/01/21 History Metoprolol Tartrate 25 mg PO BID 10/04/20 07/01/21 History Potassium Chloride 20 meq PO DAILY 10/04/20 07/01/21 History Warfarin Sodium 5 mg PO DAILY 10/04/20 07/01/21 History allopurinoL [Allopurinol 300mg 300 mg PO DAILY 10/04/20 07/01/21 History tablet] hydroCHLOROthiazide [HCTZ 25mg 25 mg PO DAILY 10/04/20 07/01/21 History tab] lisinopriL [Lisinopril 40mg Tablet] 40 mg PO DAILY 10/04/20 07/01/21 History Height: 1.83 m Weight: 112.037 kg Laboratory Results:: Laboratory Results - last 24 hr 07/01/21 05:25: C-Reactive Protein 224.0 H, Procalcitonin 0.521 07/02/21 05:50: WBC 29.8 H*, RBC 3.93 L, Hgb 12.7 L, Hct 38.5 L, MCV 97.9 H, MCH 32.4 H, MCHC 33.1, RDW 14.0, Plt Count 292, MPV 9.2, Neut % (Auto) 86.7 H, Lymph % (Auto) 6.3 L, [place] % (Auto) 6.4, Eos % (Auto) 0.3, Baso % (Auto) 0.3, Neut # (Auto) 25.8 H, Lymph # (Auto) 1.9, [place] # (Auto) 1.9 H, Eos # (Auto) 0.1, Baso # (Auto) 0.1, Total Counted 100, Neutrophils % (Manual) 88 H, Lymphocytes % (Manual) 8 L, Monocytes % (Manual) 4, Platelet Estimate Normal, Macrocytosis 1+ 07/02/21 05:50: Sodium 121 L, Potassium 3.7, Chloride 85 L, Carbon Dioxide 29, Anion Gap 10.7, BUN 14, Creatinine 0.70, Estimated Creat Clear 93, Estimated GFR 109, Est GFR ( Amer) 131, Glucose 122 H, Calcium 7.8 L 07/02/21 08:43: Vancomycin Trough 9.4 Medical History: Reports:: Atrial Fibrillation, Hypertension Denies:: Cancer, Diabetes Mellitus Type 1, Diabetes Mellitus Type 2, MRSA Assessment and Plan (1) Leukocytosis Status: Acute Category: Medical Code(s): D72.829 - Elevated white blood cell count, unspecified (2) Essential hypertension Status: Chronic Category: Medical Code(s): I10 - Essential (primary) hypertension (3) Atrial fibrillation with rapid ventricular response Status: Acute Category: Medical Code(s): I48.91 - Unspecified atrial fibrillation (4) Cellulitis and abscess of finger, unspecified Status: Acute Category: Medical Code(s): L03.019 - Cellulitis of unspecified finger; L02.519 - Cutaneous abscess of unspecified hand (5) Cellulitis, neck Status: Acute Category: Medical Code(s): L03.221 - Cellulitis of neck (6) Afib Status: Acute Category: Medical Code(s): I48.91 - Unspecified atrial fibrillation - Assessment and plan all Dx Assessment and Plan for all problems:: PATIENT'S VANCOMYCIN PEAK AND TROUGH WERE 19.6 MCG/ML AND 9.4 MCG/ML, RESPECTIVELY. RECOMMEND PATIENT RECEIVE VANCOMYCIN 2000 MG Q12H AT THIS TIME.
--- NOTE | 2021-07-02 16:48 | HMH.ORTHOCON ---
*Admission Date: 06/30/21 *Reason for consult:: Finger infection, right hand *History of present illness: Patient is an 80-year-old rsiij-dvlb-ptaoncja male who was admitted to the hospital earlier this week with infection of the right middle finger and abscess/carbuncle over the back of the neck. He underwent incision and drainage of the right middle finger and neck abscess by Dr. Lima on 06/30/2021. As he had a complex infection of the hand with multiple ulcerations, necrotic tissue and dusky discoloration of the tip, I was consulted for further management of the finger infection. On admission patient had very high white cell count which is gradually trending down. Patient is also very confused and difficult to obtain any meaningful history from him. [facility] History I have reviewed the patient's past medical history: Yes Medical History: Reports:: Atrial Fibrillation, Hypertension Denies:: Cancer, Diabetes Mellitus Type 1, Diabetes Mellitus Type 2, MRSA *Have you ever received a pneumonia vaccine?: No *Have you received a flu vaccine this season?: No Other Medical History: Reports: Arthritis Anesthesia experience/problems:: none Other Surgeries: Yes: Colonoscopy Amputation: No Fractures: No - *Social History Last grade of school completed: 7th or 8th Smoking Status: Never smoker Tobacco Type: cigarettes Alcohol Intake: never Substance Use Type: denies use *Occupational Status:: other Housing: house Household Members: family *Travel in the last 8 weeks: None Family Hx:: No significant family history Review of Systems - Review of Systems Review of systems:: unable to obtain - *Neurologic Reports abnormal walking, Reports confusion, Reports weakness, Denies seizure-like activity, Denies seizure-like activity Meds Home Medications Medication Instructions Recorded Confirmed Type RX: Amlodipine Besylate 10 mg PO DAILY 10/04/20 08/05/21 History [Amlodipine 10mg Tab] RX: Famotidine [Acid Controller] 20 mg PO DAILY 10/04/20 08/05/21 History RX: Metoprolol Tartrate 25 mg PO BID 10/04/20 08/05/21 History RX: Potassium Chloride 20 meq PO DAILY 10/04/20 08/05/21 History RX: allopurinoL [Allopurinol 300mg 300 mg PO DAILY 10/04/20 08/05/21 History tablet] RX: hydroCHLOROthiazide [HCTZ 25mg 25 mg PO DAILY 10/04/20 08/05/21 History tab] RX: lisinopriL [Lisinopril 40mg 40 mg PO DAILY 10/04/20 08/05/21 History Tablet] Linezolid [Zyvox 600mg Tablet] 600 mg PO BID 6 Days #12 tab 07/08/21 08/05/21 Rx Allergies Allergy/AdvReac Type Severity Reaction Status Date / Time No Known Allergies Allergy Verified 08/05/21 09:15 Exam Vital signs and Labs for Last 24 Hours: Temp Pulse Resp BP Pulse Ox 97 F L 102 H 18 118/62 100 07/02/21 10:53 07/02/21 14:00 07/02/21 14:00 07/02/21 14:00 07/02/21 14:00 Laboratory Results - last 24 hr 07/02/21 05:50: WBC 29.8 H*, RBC 3.93 L, Hgb 12.7 L, Hct 38.5 L, MCV 97.9 H, MCH 32.4 H, MCHC 33.1, RDW 14.0, Plt Count 292, MPV 9.2, Neut % (Auto) 86.7 H, Lymph % (Auto) 6.3 L, [place] % (Auto) 6.4, Eos % (Auto) 0.3, Baso % (Auto) 0.3, Neut # (Auto) 25.8 H, Lymph # (Auto) 1.9, [place] # (Auto) 1.9 H, Eos # (Auto) 0.1, Baso # (Auto) 0.1, Total Counted 100, Neutrophils % (Manual) 88 H, Lymphocytes % (Manual) 8 L, Monocytes % (Manual) 4, Platelet Estimate Normal, Macrocytosis 1+ 07/02/21 05:50: Sodium 121 L, Potassium 3.7, Chloride 85 L, Carbon Dioxide 29, Anion Gap 10.7, BUN 14, Creatinine 0.70, Estimated Creat Clear 93, Estimated GFR 109, Est GFR ( Amer) 131, Glucose 122 H, Calcium 7.8 L 07/02/21 08:43: Vancomycin Trough 9.4 07/02/21 13:04: Vancomycin Peak 19.6 I & O for Last 24 hours: Intake & Output 06/30/21 07/01/21 07/02/21 09/10/21 11:59 11:59 11:59 11:59 Intake Total 0 / 0 1650 / 1650 180 / 180 Output Total 700 / 700 675 / 675 500 / 500 Balance -700 / -700 975 / 975 -320 / -320 Weight 243 lb 7 oz 247 lb Microbiology Reports for the Last 24 Hours: Mi
[2021-07-03] VITALS (16 sets, daily range): BP systolic 100–145; BP diastolic 55–87; PULSE 58–130; RESP 12–28; TEMP 36.1–36.9; O2SAT 90–100; BMI 33.5
--- NOTE | 2021-07-03 04:54 | PC.NURSE ---
DSG changed on neck x2 this shift due to pt accidentally removing or dislodging. Pt has slept at intervals this shift. Alert to self. Has been less anxious after speaking with family member early in shift. Has used urinal with assistance. Pt has difficulty with any repositioning in bed or sitting up. Maximum assistance is needed. VSS. Pt remains controlled Afib on telemetry. Medication administered per dec. Will continue to monitor.
[2021-07-03 06:28] LABS: Peripheral Smear Review Scanned Result
[2021-07-03 06:40] LABS: Basophils # 0.1 K/mm3 (0-0.2); Basophils % 0.5 % (0.1-2.0); Eosinophils # 0.2 K/mm3 (0.0-0.4); Eosinophils % 0.8 % (0.1-12.0); Hematocrit 37.2 % (42.0-52.0); Hemoglobin 12.1 g/dL (14.1-18.0); Lymphocytes # 1.5 K/mm3 (0.7-4.5); Lymphocytes % 7.5 % (10-50); MANUAL DIFFERENTIAL MANUAL DIFFERENTIAL (MANUAL DIFF); Mean Corpuscular HGB Conc 32.4 g/dL (31.8-35.4); Mean Corpuscular Hemoglobin 31.5 pg (27.0-31.2); Mean Corpuscular Volume 97.2 fl (80-94); Mean Platelet Volume 8.6 fl (7.4-10.4); Monocytes # 1.2 K/mm3 (0.1-1.0); Monocytes % 5.8 % (1.7-9.3); Neutrophils # 16.9 K/mm3 (1.8-7.8); Neutrophils % 85.3 % (37.0-80.0); Platelet Count 306 K/mm3 (142-424); Red Blood Count 3.83 M/mm3 (4.60-6.20); Red Cell Distribution Width 14.1 % (11.5-17.5); White Blood Count 19.8 K/mm3 (4.8-10.8)
[2021-07-03 06:51] LABS: Prothrombin Time 17.3 seconds (10.1-12.5)
[2021-07-03 06:53] LABS: Anion Gap 11.5 mEq/L (5-15); Blood Urea Nitrogen 13 mg/dl (9-20); Calcium 7.6 mg/dl (8.4-10.2); Carbon Dioxide 26 mmol/L (22.0-30.0); Chloride 86 mmol/L (98-107); Creatinine Clearance Estimated 94 mL/min (50-200); Estimated Glomerular Filt Rate 130 ml/min (>60); GFR (African American) 157 ML/MIN (>60); Glucose 109 mg/dl (74-100); Potassium 3.5 mmoL/L (3.5-5.1); Sodium 120 mmol/L (136-145)
[2021-07-03 06:54] LABS: INR 1.51 (0.9-1.1)
[2021-07-03 07:12] LABS: Lymphocytes % 12 % (10-50); Monocytes % 6 % (2-9); Neutrophils % 76 % (42-76); Platelet Estimate Normal; RBC Morphology Normal; Total Cells Counted 100
--- NOTE | 2021-07-03 07:50 | HMH.PNCARD ---
Subjective Date: 07/03/21 Time: 07:40 Principal diagnosis: Atrial fib Interval history: 80-year-old male admitted to [facility] with sepsis and atrial fibrillation with RVR two days aog. Patient is a very poor historian. Patient does appear to be agitated this a.m. Patient states he continues to have pain of the posterior portion of the neck and of the third right finger. Abscess of the posterior portion of the neck does continue to have serosanguineous drainage. This is being evaluated by surgery. Orthopedic surgeon has evaluated the third finger of the right hand. Patient may possibly be having surgery on the third finger of the right hand due to abscess and cellulitis. Patient denies chest pain, tightness or pressure. Patient denies shortness of breath. Pain management is being managed by PCP and surgery. Patient noted with multiple skin issues such as cellulitis in the back of the neck which appears to be MRSA. Right third finger also noted with cellulitis and possible MRSA. Patient does have history of atrial fibrillation in which he has been on Coumadin in the past prior to admission. Due to frequent falls, Coumadin has been stopped. claims consultant reveals atrial fibrillation with a heart rate of 108-118bpm. Blood pressure stable. Patient does have multiple abrasions noted on the forehead and lower extremities. Patient is currently receiving Lovenox injections per PCP management. Echocardiogram revealed EF 50% with no obvious regional wall abnormality, there is no left ventricular thrombosis seen. Mild MR and TR noted with small pericardial effusion. Discussed plan of care with Dr. Mayo. Orders received and recommended from Dr. Mayo. Recommend not to restart Coumadin for anticoagulation due to frequent falls. If patient is unable to tolerate anticoagulant for his atrial fibrillation, patient may be a candidate for watchman device. This may be discussed on an outpatient basis at follow-up with cardiology. Continue Lovenox injections per PCP management. Please notify cardiology of any changes in patient status. Will start patient on Cardiazem CD 180 mg one tablet daily for better heart rate and blood pressure control. Patient is to follow-up in cardiac clinic in 1 to 2 weeks or if symptoms develop or persist. Echo:Conclusion 1. Biatrial enlargement, normal left ventricular size, mild concentric left ventricular hypertrophy, visually estimated ejection fraction 50% with no obvious regional wall motion abnormality, diastolic parameters are inconclusive, Definity contrast was utilized to delineate the endocardial surfaces, there is no left ventricular thrombus seen. 2. Mildly enlarged right ventricle with normal contractility. 3. Mild mitral and tricuspid regurgitation. 4. Small pericardial effusion noted. Thank you for allowing cardiology to participate in the care of this patient. Exam Vital signs and Labs for Last 24 Hours: Temp Pulse Resp BP Pulse Ox 98.4 F 92 H 14 105/55 L 93 L 07/03/21 04:00 07/03/21 04:00 07/03/21 04:00 07/03/21 04:00 07/03/21 04:00 Laboratory Results - last 24 hr 07/02/21 08:43: Vancomycin Trough 9.4 07/02/21 13:04: Vancomycin Peak 19.6 07/03/21 05:43: PT 17.3 H, INR 1.51 H 07/03/21 05:43: WBC 19.8 H D, RBC 3.83 L, Hgb 12.1 L, Hct 37.2 L, MCV 97.2 H, MCH 31.5 H, MCHC 32.4, RDW 14.1, Plt Count 306, MPV 8.6, Neut % (Auto) 85.3 H, Lymph % (Auto) 7.5 L, [place] % (Auto) 5.8, Eos % (Auto) 0.8, Baso % (Auto) 0.5, Neut # (Auto) 16.9 H, Lymph # (Auto) 1.5, [place] # (Auto) 1.2 H, Eos # (Auto) 0.2, Baso # (Auto) 0.1, Total Counted 100, Neutrophils % (Manual) 76, Band Neutrophils % 4.0, Lymphocytes % (Manual) 12, Monocytes % (Manual) 6, Metamyelocytes % 2.0 H, Platelet Estimate Normal, RBC Morphology Normal 07/03/21 05:43: Sodium 120 L, Potassium 3.5, Chloride 86 L, Carbon Dioxide 26, Anion Gap 11.5, BUN 13, Creatinine 0.60 L, Estimated Creat Clear 94, Est
--- NOTE | 2021-07-03 09:46 | HMH.PTEV ---
Physical Therapy Evaluation Rehab PT IP Evaluation Start: 07/03/21 09:32 Freq: ONCE Status: Active Protocol: Document 07/03/21 09:34 PHORNE (Rec: 07/03/21 09:45 PHORNE [id number]) Subjective/History History History Pt is 80 year old male admitted to [facility] after having unwitnessed fall ~ 1 week ago. Pt reports living with his brother in 1 level home with no stairs. Pt states he used a rolling walker prior to admittance at [facility] and occasionally felt unsteady when walking. Eval completed by Marva Antonio, SPT. Subjective Subjective Pt reports feeling better this morning after getting into his bedside chair. He reports having minimal pain in R knee from his fall. Rehab PT IP Eval Objective Appearance Patient Behavior Appropriate,Cooperative Patient Orientation Place,Name,Birthday,Year Difficulty following instructions none Speech Pattern Clear,Appropriate,Coherent Ambulation Patient Able to Ambulate Yes Ambulation Observation IP General Gait Pattern Observation Wide Based Gait,Shuffling Step Ambulation Distance (feet) 25 Ambulation Assistive Device Rolling Walker Ambulation Ability Contact Guard/Hand Hold Balance Ability to Arise Able, uses arms to help Sitting Balance Steady, safe Standing Balance Steady, wide stance Dynamic Sitting Balance Ability Good Dynamic Standing Balance Ability Good Transfers Chair Transfer Ability Contact Guard/Hand Hold Sit to Stand Chair Transfer Ability Contact Guard/Hand Hold ROM All Extremities PT ROM Status WFL MMT All Extremities PT MMT WFL Rehab PT IP prob,goals,plan Problems Date of Evaluation: 07/03/21 PT IP Problems Gait,Balance,Safety Rehab Potential Rehab Potential Good Equipment Needs Assistive Devices Rolling / Wheeled Walker Plan PT Intervention Plan Gait,Balance,Safety, Therapeutic Exercise PT Plan Frequency BID Duration LOS Discharge Goals Bed Transfer Ability Contact Guard/Hand Hold Sit to Stand Chair Transfer Ability Contact Guard/Hand Hold Ambulation Assistive Device Rolling Walker Ambulation Distance (feet) 30 Discharge Plan PT Discharge Plan Pt would benefit fro
--- NOTE | 2021-07-03 11:48 | DIET.NUTRFU ---
Addendum entered by Haydee Cole 07/06/21 14:57: PO intakes improved- 100%, weight stable, still no BM. Original Note: PO intakes 50%, pt states he wants to go home and just doesnt feel like eating much. No c/o N/V/D, he has had some confusion which has improved. Weight stable. Pt has not yet had a BM.
--- NOTE | 2021-07-03 16:32 | HMH.ACPN2 ---
Internal Medicine - PN: Subj *Date: 07/03/21 *Time: 08:20 Interval history: plans for surgery today pt states he wants out oob Exam Vital signs and Labs for Last 24 Hours: Temp Pulse Resp BP Pulse Ox 97.0 F L 86 14 134/71 94 L 07/03/21 14:10 07/03/21 14:10 07/03/21 14:10 07/03/21 14:10 07/03/21 14:10 Laboratory Results - last 24 hr 07/03/21 05:43: PT 17.3 H, INR 1.51 H 07/03/21 05:43: WBC 19.8 H D, RBC 3.83 L, Hgb 12.1 L, Hct 37.2 L, MCV 97.2 H, MCH 31.5 H, MCHC 32.4, RDW 14.1, Plt Count 306, MPV 8.6, Neut % (Auto) 85.3 H, Lymph % (Auto) 7.5 L, [place] % (Auto) 5.8, Eos % (Auto) 0.8, Baso % (Auto) 0.5, Neut # (Auto) 16.9 H, Lymph # (Auto) 1.5, [place] # (Auto) 1.2 H, Eos # (Auto) 0.2, Baso # (Auto) 0.1, Total Counted 100, Neutrophils % (Manual) 76, Band Neutrophils % 4.0, Lymphocytes % (Manual) 12, Monocytes % (Manual) 6, Metamyelocytes % 2.0 H, Platelet Estimate Normal, RBC Morphology Normal 07/03/21 05:43: Sodium 120 L, Potassium 3.5, Chloride 86 L, Carbon Dioxide 26, Anion Gap 11.5, BUN 13, Creatinine 0.60 L, Estimated Creat Clear 94, Estimated GFR 130, Est GFR ( Amer) 157, Glucose 109 H, Calcium 7.6 L I & O for Last 24 hours: Intake & Output 07/01/21 07/02/21 07/03/21 07/04/21 11:59 11:59 11:59 11:59 Intake Total 0 / 0 1650 / 1650 300 / 300 0 / 0 Output Total 700 / 700 675 / 675 1650 / 1650 Balance -700 / -700 975 / 975 -1350 / -1350 0 / 0 Weight 243 lb 7 oz 247 lb 248 lb 1 oz Microbiology Reports for the Last 24 Hours: Microbiology 07/03/21 12:55 Finger,Right Middle Gram Stain - Final 06/30/21 20:40 Blood Blood Culture - Preliminary Staphylococcus aureus 06/30/21 19:30 Neck Gram Stain - Final 06/30/21 19:30 Neck Wound Culture - Final Staphylococcus aureus 06/30/21 19:30 Hand,Right Gram Stain - Final 06/30/21 19:30 Hand,Right Wound Culture - Final Staphylococcus aureus 06/30/21 20:40 Blood Blood Culture - Final Staphylococcus aureus - Constitutional no acute distress, chronically ill appearing - *Routine HEENT Exam Head: Present: normocephalic Eye: Present: PERRL ENT: Present: mucous membranes moist - *Routine Neck Exam Present: supple. Absent: lymphadenopathy - *Routine Respiratory Exam Present: CTA bilaterally - *Routine Cardiovascular Exam Present: irregular rhythm - *Routine Abdominal Exam Present: soft, normoactive bowel sounds. Absent: tenderness - *Routine Extremities Exam Present: normal capillary refill. Absent: cyanosis, clubbing, edema - *Routine Skin Exam Present: warm, wounds. Absent: rash Comments: dressing to rt 2nd finger dressing to back of neck - *Routine Neurological Exam Present: alert, oriented X3 - Routine Psychiatric Exam Present: normal affect Assessment and Plan (1) Leukocytosis Status: Acute Category: Medical Code(s): D72.829 - Elevated white blood cell count, unspecified (2) Essential hypertension Status: Chronic Category: Medical Code(s): I10 - Essential (primary) hypertension (3) Atrial fibrillation with rapid ventricular response Status: Acute Category: Medical Code(s): I48.91 - Unspecified atrial fibrillation (4) Cellulitis and abscess of finger, unspecified Status: Acute Category: Medical Code(s): L03.019 - Cellulitis of unspecified finger; L02.519 - Cutaneous abscess of unspecified hand (5) Cellulitis, neck Status: Acute Category: Medical Code(s): L03.221 - Cellulitis of neck (6) Afib Status: Acute Category: Medical Code(s): I48.91 - Unspecified atrial fibrillation - Assessment and plan all Dx Assessment and Plan for all problems:: rounded with dr young all orders per dr young surgery today oob
--- NOTE | 2021-07-03 18:24 | HMH.OPNOTE ---
Date of procedure: 07/03/21 Pre-op Diagnosis:: 1. Chronic/complex paronychia middle finger, right hand 2. Multiple ulcerations middle finger, right hand 3. Gangrenous middle finger, right hand Post-op Diagnosis:: Same Procedure performed:: Debridement middle finger, right hand Surgeon:: Javan Claros MD NUCLEAR MONITORING TECHNICIAN:: Gregorio Mccormack Anesthesia: MAC Estimated blood loss (mL): 2 Clinical Note:: Patient is an 80-year-old ihrav-aizp-erciyers male who was admitted to hospital earlier this week with infection of the right middle finger and abscess/carbuncle over the back of the neck. He underwent incision and drainage of the right middle finger and the neck abscess by Dr. Lima on 06/30/2021. As he had a complex infection of the hand with multiple ulcerations, necrotic tissue and dusky discoloration of the tip, I was consulted for further management of the finger infection. On examination at the bedside, the finger was very swollen, inflamed with multiple ulcerations over the middle and distal phalanges. The ulcers were covered with necrotic tissue and the extensor tendon was exposed over the dorsum of the PIP joint and base of middle phalanx. The tip of the finger was showing dusky discoloration with sluggish capillary refill. The capillary refill to the finger is sluggish and altered sensation noted over the finger. There is less swelling over the proximal phalanx; there is no evidence of extension of the infection into the hand and he is not tender over the flexor tendon sheath in the hand. On admission patient had very high white cell count which is gradually trending down. Patient is also very confused and difficult to obtain any meaningful history from him. Today one of his brothers mentioned the patient had the right middle finger infection for over a month. Patient could not tolerate bedside wound debridement because of pain. Therefore patient is brought to the operating room for surgical debridement and drainage of any pockets of pus. Operative findings:: Multiple ulcerations over the middle and distal phalanx of the finger both on the volar as well as the dorsal aspect. After debriding the necrotic tissue, James pus was noted to be coming from these ulcers. Both the flexor and extensor tendons were exposed. The skin over the finger was heavily macerated and peeling off. No obvious evidence of bone or joint involvement is noted. The pulp of the finger is gangrenous with a dusky discoloration. Capillary refill is sluggish over the pulp of the finger. Culture swabs were taken for microbiology. After completion of the debridement, intraoperative photographs of the finger were taken for medical record. Operative note:: I have reviewed the clinical, x-ray and laboratory findings with the patient and his brother. I have discussed the diagnosis, natural history and management options in detail including both nonsurgical and surgical. I have recommended surgical remediation in the form of debridement of the right middle finger.? The procedure of incision and drainage/debridement was discussed with the patient.? The complications discussed including but not limited to- infection, bleeding, injury to nerves, blood vessels, tendons, failure to eradicate the infection, incomplete recovery, persistent pain, stiffness, CRPS, DVT/PE, likely need for further surgery and anesthetic complications including stroke, heart attack and even .? I have specifically told the patient that the purpose of surgery today is mainly to remove the and devitalized tissue, drain the pus and reduce the infective load.? Given the the extent of skin and soft tissue involvement, it is likely that he may need a partial or complete of the finger further down the line to completely eradicate the infection.? Patient understands and wished to proceed with the surgical intervention. All the questions were answered and he verbalized a good understanding. The limb was appropriately marked.
[2021-07-03 22:32] LABS: Chloride 95 mmol/L (98-107)
[2021-07-03 22:33] LABS: Potassium 3.9 mmoL/L (3.5-5.1); Sodium 126 mmol/L (136-145)
[2021-07-03 22:36] LABS: Anion Gap 11.9 mEq/L (5-15); Blood Urea Nitrogen 16 mg/dl (9-20); Calcium 8.1 mg/dl (8.4-10.2); Carbon Dioxide 23 mmol/L (22.0-30.0); Creatinine Clearance Estimated 94 mL/min (50-200); Estimated Glomerular Filt Rate 81 ml/min (>60); GFR (African American) 98 ML/MIN (>60); Glucose 157 mg/dl (74-100)
[2021-07-04] VITALS (8 sets, daily range): BP systolic 107–144; BP diastolic 64–83; PULSE 82–120; RESP 15–21; TEMP 36.6–37.1; O2SAT 94–98; BMI 33.5
--- NOTE | 2021-07-04 03:28 | PC.NURSE ---
Pt has sat up to chair all night. Has slept at intervals this shift. Has been less anxious. DSG to neck changed this shift using wet/dry, kerlix, 4x4, ABD pad and tape. DSG to hand remains in place. Pt has used urinal with one incontinent episode. VSS. Will continue to monitor.
[2021-07-04 07:15] LABS: Basophils # 0.1 K/mm3 (0-0.2); Basophils % 0.5 % (0.1-2.0); Eosinophils # 0.1 K/mm3 (0.0-0.4); Eosinophils % 0.8 % (0.1-12.0); Hematocrit 39.2 % (42.0-52.0); Hemoglobin 12.7 g/dL (14.1-18.0); Lymphocytes # 1.5 K/mm3 (0.7-4.5); Mean Corpuscular HGB Conc 32.5 g/dL (31.8-35.4); Mean Corpuscular Hemoglobin 31.8 pg (27.0-31.2); Mean Corpuscular Volume 97.9 fl (80-94); Monocytes % 6.1 % (1.7-9.3); Neutrophils # 14.2 K/mm3 (1.8-7.8); Neutrophils % 83.6 % (37.0-80.0); Platelet Count 346 K/mm3 (142-424); Red Cell Distribution Width 13.5 % (11.5-17.5)
[2021-07-04 07:24] LABS: MANUAL DIFFERENTIAL MANUAL DIFFERENTIAL (MANUAL DIFF)
[2021-07-04 07:25] LABS: Anion Gap 11.8 mEq/L (5-15); Blood Urea Nitrogen 17 mg/dl (9-20); Carbon Dioxide 27 mmol/L (22.0-30.0); Chloride 95 mmol/L (98-107); Creatinine Clearance Estimated 78 mL/min (50-200); Estimated Glomerular Filt Rate 58 ml/min (>60); GFR (African American) 70 ML/MIN (>60); Glucose 128 mg/dl (74-100); Potassium 3.8 mmoL/L (3.5-5.1); Sodium 130 mmol/L (136-145)
--- NOTE | 2021-07-04 08:43 | HMH.ACPN2 ---
Internal Medicine - PN: Subj *Date: 07/04/21 *Time: 08:49 Interval history: Patient is up in the chair this morning, is awake and alert. He seems much more coherent. He is complaining about multiple falls at home. He lives with his brother. Operative course is reviewed, general surgery incised and drained neck abscess. Dr. Claros debrided his right third finger. Patient remains on vancomycin. We will ask physical therapy to work with him and evaluate. Anticipate him staying here a few more days on IV biotics. Exam Vital signs and Labs for Last 24 Hours: Temp Pulse Resp BP Pulse Ox 98.5 F 110 H 20 107/64 L 95 07/04/21 03:34 07/04/21 04:00 07/04/21 03:34 07/04/21 03:34 07/04/21 03:34 Laboratory Results - last 24 hr 07/03/21 21:29: Sodium 126 L, Potassium 3.9, Chloride 95 L, Carbon Dioxide 23, Anion Gap 11.9, BUN 16, Creatinine 0.90 D, Estimated Creat Clear 94, Estimated GFR 81, Est GFR ( Amer) 98 D, Glucose 157 H D, Calcium 8.1 L 07/04/21 06:26: WBC 17.0 H, RBC 4.00 L, Hgb 12.7 L, Hct 39.2 L, MCV 97.9 H, MCH 31.8 H, MCHC 32.5, RDW 13.5, Plt Count 346, MPV 8.0, Neut % (Auto) 83.6 H, Lymph % (Auto) 9.0 L, [place] % (Auto) 6.1, Eos % (Auto) 0.8, Baso % (Auto) 0.5, Neut # (Auto) 14.2 H, Lymph # (Auto) 1.5, [place] # (Auto) 1.0, Eos # (Auto) 0.1, Baso # (Auto) 0.1 07/04/21 06:26: Sodium 130 L, Potassium 3.8, Chloride 95 L, Carbon Dioxide 27, Anion Gap 11.8, BUN 17, Creatinine 1.20 D, Estimated Creat Clear 78, Estimated GFR 58 L, Est GFR ( Amer) 70 D, Glucose 128 H, Calcium 8.0 L I & O for Last 24 hours: Intake & Output 07/01/21 07/02/21 07/03/21 07/04/21 23:59 23:59 23:59 23:59 Intake Total 1230 / 1470 720 / 720 360 / 360 Output Total 925 / 1125 900 / 900 1350 / 1650 300 / 300 Balance 305 / 345 -180 / -180 -990 / -1290 -300 / -300 Weight 242 lb 8.136 oz 247 lb 248 lb 1 oz 248 lb 0.991 oz Microbiology Reports for the Last 24 Hours: Microbiology 07/03/21 12:55 Finger,Right Middle Gram Stain - Final 07/03/21 12:55 Finger,Right Middle Wound Culture - Preliminary 07/01/21 11:50 Neck - Abscess - Final 06/30/21 20:40 Blood Blood Culture - Preliminary Staphylococcus aureus 06/30/21 19:30 Neck Gram Stain - Final 06/30/21 19:30 Neck Wound Culture - Final Staphylococcus aureus 06/30/21 19:30 Hand,Right Gram Stain - Final 06/30/21 19:30 Hand,Right Wound Culture - Final Staphylococcus aureus 06/30/21 20:40 Blood Blood Culture - Final Staphylococcus aureus - Constitutional no acute distress, chronically ill appearing - *Routine HEENT Exam Head: Present: other Eye: Absent: conjunctival icterus ENT: Present: mucous membranes moist - *Routine Neck Exam Present: supple. Absent: lymphadenopathy - *Routine Respiratory Exam Present: CTA bilaterally - *Routine Cardiovascular Exam Present: tachycardia, irregularly irregular - *Routine Abdominal Exam Present: soft, normoactive bowel sounds. Absent: tenderness - *Routine Extremities Exam Present: tenderness. Absent: cyanosis, calf tenderness - *Routine Skin Exam Present: lesions, wounds. Absent: jaundice - *Routine Neurological Exam Present: alert, oriented X3, abnormal gait, moving all extremities, normal speech. Absent: facial asymmetry, tremors Assessment and Plan (1) Leukocytosis Status: Acute Category: Medical Code(s): D72.829 - Elevated white blood cell count, unspecified (2) Essential hypertension Status: Chronic Category: Medical Code(s): I10 - Essential (primary) hypertension (3) Atrial fibrillation with rapid ventricular response Status: Acute Category: Medical Code(s): I48.91 - Unspecified atrial fibrillation (4) Cellulitis and abscess of finger, unspecified Status: Acute Category: Medical Code(s): L03.019 - Cellulitis of unspecified finger; L02.
[2021-07-04 09:11] LABS: Eosinophils % 2 % (0-3); Lymphocytes % 10 % (10-50); Monocytes % 6 % (2-9); Neutrophils % 80 % (42-76); Platelet Estimate Normal; RBC Morphology Normal; Total Cells Counted 100
--- NOTE | 2021-07-04 09:40 | PC.NURSE ---
CRITICAL VANC TROUGH REPORTED TO ROLANDO IN THE PHARMACY
--- NOTE | 2021-07-04 10:09 | P.PN_ITS ---
Subjective Patient reports: no new complaints Progress Note: A&P (1) Leukocytosis Status: Acute (2) Essential hypertension Status: Chronic (3) Atrial fibrillation with rapid ventricular response Status: Acute (4) Cellulitis and abscess of finger, unspecified Status: Acute (5) Cellulitis, neck Status: Acute Assessment and plan: Overall, doing fairly well status post incision and drainage with ongoing drainage via wounds and follicles of complex carbuncle. Continue dressing changes and antibiotics (6) Afib Status: Acute Exam Vital signs and Labs for Last 24 Hours: Temp Pulse Resp BP Pulse Ox 98.5 F 82 18 117/74 94 L 07/04/21 08:00 07/04/21 08:00 07/04/21 08:00 07/04/21 08:00 07/04/21 08:00 Laboratory Results - last 24 hr 07/03/21 21:29: Sodium 126 L, Potassium 3.9, Chloride 95 L, Carbon Dioxide 23, Anion Gap 11.9, BUN 16, Creatinine 0.90 D, Estimated Creat Clear 94, Estimated GFR 81, Est GFR ( Amer) 98 D, Glucose 157 H D, Calcium 8.1 L 07/04/21 06:26: WBC 17.0 H, RBC 4.00 L, Hgb 12.7 L, Hct 39.2 L, MCV 97.9 H, MCH 31.8 H, MCHC 32.5, RDW 13.5, Plt Count 346, MPV 8.0, Neut % (Auto) 83.6 H, Lymph % (Auto) 9.0 L, [place] % (Auto) 6.1, Eos % (Auto) 0.8, Baso % (Auto) 0.5, Neut # (Auto) 14.2 H, Lymph # (Auto) 1.5, [place] # (Auto) 1.0, Eos # (Auto) 0.1, Baso # (Auto) 0.1, Total Counted 100, Neutrophils % (Manual) 80 H, Band Neutrophils % 2.0, Lymphocytes % (Manual) 10, Monocytes % (Manual) 6, Eosinophils % (Manual) 2, Platelet Estimate Normal, RBC Morphology Normal 07/04/21 06:26: Sodium 130 L, Potassium 3.8, Chloride 95 L, Carbon Dioxide 27, Anion Gap 11.8, BUN 17, Creatinine 1.20 D, Estimated Creat Clear 78, Estimated GFR 58 L, Est GFR ( Amer) 70 D, Glucose 128 H, Calcium 8.0 L 07/04/21 08:32: Vancomycin Trough 20.0 H I & O for Last 24 hours: Intake & Output 07/01/21 07/02/21 07/03/21 07/04/21 11:59 11:59 11:59 11:59 Intake Total 0 / 0 1650 / 1650 300 / 300 1806 / 1806 Output Total 700 / 700 675 / 675 1650 / 1650 700 / 700 Balance -700 / -700 975 / 975 -1350 / -1350 1106 / 1106 Weight 243 lb 7 oz 247 lb 248 lb 1 oz 248 lb 0.991 oz Microbiology Reports for the Last 24 Hours: Microbiology 07/03/21 12:55 Finger,Right Middle Gram Stain - Final 07/03/21 12:55 Finger,Right Middle Wound Culture - Preliminary 07/01/21 11:50 Neck - Abscess - Final 06/30/21 20:40 Blood Blood Culture - Preliminary Staphylococcus aureus 06/30/21 19:30 Neck Gram Stain - Final 06/30/21 19:30 Neck Wound Culture - Final Staphylococcus aureus 06/30/21 19:30 Hand,Right Gram Stain - Final 06/30/21 19:30 Hand,Right Wound Culture - Final Staphylococcus aureus 06/30/21 20:40 Blood Blood Culture - Final Staphylococcus aureus - Constitutional no acute distress - *Routine Respiratory Exam Absent: respiratory distress - *Routine Cardiovascular Exam Absent: tachycardia - *Routine Skin Exam Comments: Posterior neck induration improving
--- NOTE | 2021-07-04 12:34 | HMH.PTEV ---
Physical Therapy Evaluation Rehab PT IP Evaluation Start: 07/03/21 09:32 Freq: ONCE Status: Active Protocol: Document 07/03/21 09:34 PHORNE (Rec: 07/03/21 09:45 PHORNE [id number]) Subjective/History History History Pt is 80 year old male admitted to [facility] after having unwitnessed fall ~ 1 week ago. Pt reports living with his brother in 1 level home with no stairs. Pt states he used a rolling walker prior to admittance at [facility] and occasionally felt unsteady when walking. Eval completed by Marva Antonio, SPT. Subjective Subjective Pt reports feeling better this morning after getting into his bedside chair. He reports having minimal pain in R knee from his fall. Rehab PT IP Eval Objective Appearance Patient Behavior Appropriate,Cooperative Patient Orientation Place,Name,Birthday,Year Difficulty following instructions none Speech Pattern Clear,Appropriate,Coherent Ambulation Patient Able to Ambulate Yes Ambulation Observation IP General Gait Pattern Observation Wide Based Gait,Shuffling Step Ambulation Distance (feet) 25 Ambulation Assistive Device Rolling Walker Ambulation Ability Contact Guard/Hand Hold Balance Ability to Arise Able, uses arms to help Sitting Balance Steady, safe Standing Balance Steady, wide stance Dynamic Sitting Balance Ability Good Dynamic Standing Balance Ability Good Transfers Chair Transfer Ability Contact Guard/Hand Hold Sit to Stand Chair Transfer Ability Contact Guard/Hand Hold ROM All Extremities PT ROM Status WFL MMT All Extremities PT MMT WFL Rehab PT IP prob,goals,plan Problems Date of Evaluation: 07/03/21 PT IP Problems Gait,Balance,Safety Rehab Potential Rehab Potential Good Equipment Needs Assistive Devices Rolling / Wheeled Walker Plan PT Intervention Plan Gait,Balance,Safety, Therapeutic Exercise PT Plan Frequency BID Duration LOS Discharge Goals Bed Transfer Ability Contact Guard/Hand Hold Sit to Stand Chair Transfer Ability Contact Guard/Hand Hold Ambulation Assistive Device Rolling Walker Ambulation Distance (feet) 30 Discharge Plan PT Discharge Plan Pt would benefit fro
[2021-07-04 14:30] LABS: Vancomycin,Peak 40.1 ug/ml (11-39)
--- NOTE | 2021-07-04 15:57 | PC.NURSE ---
Pt is alert to self. He has periods of increased confusion and frustration where he lashes out at his visitors and yells at them. far as I know he has not yelled at staff. Dressing to his neck was changed. Wounds beds have some yellowish slough. Both wounds packed w/dry kerlix and covered w/4x4's, abd pad, and tape. Bloody drainage noted. Pt tolerated well. He's been up to the chair all shift thus far. He has been afib on telemetry w/HR 100-130's (mostly 100-109). He has used his urinal w/900mls out thus far. He is currently resting in his recliner watching TV.
[2021-07-05] VITALS (8 sets, daily range): BP systolic 123–156; BP diastolic 72–96; PULSE 70–125; RESP 16–22; TEMP 36.5–37.1; O2SAT 91–97; BMI 33.7
--- NOTE | 2021-07-05 03:15 | PC.NURSE ---
A&OX4. PT TOLERATING RA WELL. PT IS VERY LOUD AND ANGRY AT TIMES. PT IS A X2 ASSIST IN ROOM. PT IS UNABLE TO STAND ON HIS OWN, AND IS VERY SHAKY. DRESSING TO BACK OF NECK CHANGED X2 THUS FAR THIS SHIFT. AREAS WITH FERREIRA SLOUGH PRESENT. SEROSANG DRAINAGE NOTED. DRY, PACKED DRESSING CDI AT THIS TIME. PT AFIB ON TELE, HR RANGING FROM 90-120S. HAS SLEPT MAJORITY OF SHIFT. VSS WILL CONTINUE TO MONITOR.
[2021-07-05 06:14] LABS: Basophils # 0.1 K/mm3 (0-0.2); Basophils % 0.5 % (0.1-2.0); Eosinophils # 0.1 K/mm3 (0.0-0.4); Eosinophils % 0.5 % (0.1-12.0); Hematocrit 38.4 % (42.0-52.0); Hemoglobin 12.5 g/dL (14.1-18.0); Lymphocytes # 1.9 K/mm3 (0.7-4.5); Lymphocytes % 9.5 % (10-50); Mean Corpuscular HGB Conc 32.4 g/dL (31.8-35.4); Mean Corpuscular Hemoglobin 31.9 pg (27.0-31.2); Mean Corpuscular Volume 98.6 fl (80-94); Mean Platelet Volume 7.7 fl (7.4-10.4); Monocytes # 0.9 K/mm3 (0.1-1.0); Monocytes % 4.6 % (1.7-9.3); Neutrophils # 17.1 K/mm3 (1.8-7.8); Neutrophils % 84.9 % (37.0-80.0); Platelet Count 357 K/mm3 (142-424); Red Cell Distribution Width 13.9 % (11.5-17.5)
[2021-07-05 06:22] LABS: White Blood Count 20.1 K/mm3 (4.8-10.8)
[2021-07-05 06:24] LABS: MANUAL DIFFERENTIAL MANUAL DIFFERENTIAL (MANUAL DIFF)
[2021-07-05 06:32] LABS: Anion Gap 12.3 mEq/L (5-15); Blood Urea Nitrogen 22 mg/dl (9-20); Calcium 8.2 mg/dl (8.4-10.2); Carbon Dioxide 26 mmol/L (22.0-30.0); Chloride 99 mmol/L (98-107); Creatinine Clearance Estimated 59 mL/min (50-200); Estimated Glomerular Filt Rate 42 ml/min (>60); GFR (African American) 51 ML/MIN (>60); Glucose 122 mg/dl (74-100); Potassium 4.3 mmoL/L (3.5-5.1); Sodium 133 mmol/L (136-145)
[2021-07-05 06:43] LABS: Lymphocytes % 17 % (10-50); Monocytes % 2 % (2-9); Neutrophils % 77 % (42-76); Platelet Estimate Normal; RBC Morphology Normal; Total Cells Counted 100
--- NOTE | 2021-07-05 08:43 | P.PN_ITS ---
Subjective Patient reports: no new complaints Progress Note: A&P (1) Leukocytosis Status: Acute (2) Essential hypertension Status: Chronic (3) Atrial fibrillation with rapid ventricular response Status: Acute (4) Cellulitis and abscess of finger, unspecified Status: Acute (5) Cellulitis, neck Status: Acute (6) Afib Status: Acute (7) Carbuncle, neck Status: Acute Assessment and plan: Continue purulent drainage from drainage sites and follicles. Increase frequency of dry dressing changes May ultimately require additional debridement; however, he does seem to be slowly improving on current therapy. In addition, the extensive nature of affected tissue would likely negate efficacy of simple debridement. Exam Vital signs and Labs for Last 24 Hours: Temp Pulse Resp BP Pulse Ox 98.7 F 114 H 18 156/91 H 95 07/05/21 08:00 07/05/21 08:00 07/05/21 08:00 07/05/21 08:00 07/05/21 08:00 Laboratory Results - last 24 hr 07/04/21 06:26: Total Counted 100, Neutrophils % (Manual) 80 H, Band Neutrophils % 2.0, Lymphocytes % (Manual) 10, Monocytes % (Manual) 6, Eosinophils % (Manual) 2, Platelet Estimate Normal, RBC Morphology Normal 07/04/21 08:32: Vancomycin Trough 20.0 H 07/04/21 13:46: Vancomycin Peak 40.1 H* 07/05/21 05:15: WBC 20.1 H*, RBC 3.90 L, Hgb 12.5 L, Hct 38.4 L, MCV 98.6 H, MCH 31.9 H, MCHC 32.4, RDW 13.9, Plt Count 357, MPV 7.7, Neut % (Auto) 84.9 H, Lymph % (Auto) 9.5 L, [place] % (Auto) 4.6, Eos % (Auto) 0.5, Baso % (Auto) 0.5, Neut # (Auto) 17.1 H, Lymph # (Auto) 1.9, [place] # (Auto) 0.9, Eos # (Auto) 0.1, Baso # (Auto) 0.1, Total Counted 100, Neutrophils % (Manual) 77 H, Band Neutrophils % 4.0, Lymphocytes % (Manual) 17, Monocytes % (Manual) 2, Platelet Estimate Normal, RBC Morphology Normal 07/05/21 05:15: Sodium 133 L, Potassium 4.3, Chloride 99, Carbon Dioxide 26, Anion Gap 12.3, BUN 22 H D, Creatinine 1.60 H D, Estimated Creat Clear 59, Estimated GFR 42 L, Est GFR ( Amer) 51 L D, Glucose 122 H, Calcium 8.2 L I & O for Last 24 hours: Intake & Output 07/02/21 07/03/21 07/04/21 07/05/21 11:59 11:59 11:59 11:59 Intake Total 1650 / 1650 300 / 300 1806 / 1806 2396 / 2396 Output Total 675 / 675 1650 / 1650 700 / 1050 2500 / 2500 Balance 975 / 975 -1350 / -1350 1106 / 756 -104 / -104 Weight 247 lb 248 lb 1 oz 248 lb 0.991 oz 249 lb Microbiology Reports for the Last 24 Hours: Microbiology 07/03/21 12:55 Finger,Right Middle Gram Stain - Final 07/03/21 12:55 Finger,Right Middle Wound Culture - Preliminary Gram Positive Cocci - Constitutional no acute distress - *Routine Respiratory Exam Absent: respiratory distress - *Routine Cardiovascular Exam Present: tachycardia - *Routine Skin Exam Comments: Posterior neck complex carbuncle with ongoing purulent drainage.
--- NOTE | 2021-07-05 11:22 | HMH.PHACONS ---
- Pharmacy Consult Date: 07/05/21 Time: 11:22 Referring provider: AMI Reason for Consult:: VANCOMYCIN DOSING Allergies and ADEs:: Allergies Allergy/AdvReac Type Severity Reaction Status Date / Time No Known Allergies Allergy Verified 10/21/20 13:15 Home Medications:: Home Medications Medication Instructions Recorded Confirmed Type Amlodipine Besylate [Amlodipine 10 mg PO DAILY 10/04/20 07/01/21 History 10mg Tab] Famotidine [Acid Controller] 20 mg PO DAILY 10/04/20 07/01/21 History Metoprolol Tartrate 25 mg PO BID 10/04/20 07/01/21 History Potassium Chloride 20 meq PO DAILY 10/04/20 07/01/21 History Warfarin Sodium 5 mg PO DAILY 10/04/20 07/01/21 History allopurinoL [Allopurinol 300mg 300 mg PO DAILY 10/04/20 07/01/21 History tablet] hydroCHLOROthiazide [HCTZ 25mg 25 mg PO DAILY 10/04/20 07/01/21 History tab] lisinopriL [Lisinopril 40mg Tablet] 40 mg PO DAILY 10/04/20 07/01/21 History Height: 1.83 m Weight: 112.945 kg Laboratory Results:: Laboratory Results - last 24 hr 07/04/21 13:46: Vancomycin Peak 40.1 H* 07/05/21 05:15: WBC 20.1 H*, RBC 3.90 L, Hgb 12.5 L, Hct 38.4 L, MCV 98.6 H, MCH 31.9 H, MCHC 32.4, RDW 13.9, Plt Count 357, MPV 7.7, Neut % (Auto) 84.9 H, Lymph % (Auto) 9.5 L, [place] % (Auto) 4.6, Eos % (Auto) 0.5, Baso % (Auto) 0.5, Neut # (Auto) 17.1 H, Lymph # (Auto) 1.9, [place] # (Auto) 0.9, Eos # (Auto) 0.1, Baso # (Auto) 0.1, Total Counted 100, Neutrophils % (Manual) 77 H, Band Neutrophils % 4.0, Lymphocytes % (Manual) 17, Monocytes % (Manual) 2, Platelet Estimate Normal, RBC Morphology Normal 07/05/21 05:15: Sodium 133 L, Potassium 4.3, Chloride 99, Carbon Dioxide 26, Anion Gap 12.3, BUN 22 H D, Creatinine 1.60 H D, Estimated Creat Clear 59, Estimated GFR 42 L, Est GFR ( Amer) 51 L D, Glucose 122 H, Calcium 8.2 L Medical History: Reports:: Atrial Fibrillation, Hypertension Denies:: Cancer, Diabetes Mellitus Type 1, Diabetes Mellitus Type 2, MRSA Assessment and Plan (1) Leukocytosis Status: Acute Category: Medical Code(s): D72.829 - Elevated white blood cell count, unspecified (2) Essential hypertension Status: Chronic Category: Medical Code(s): I10 - Essential (primary) hypertension (3) Atrial fibrillation with rapid ventricular response Status: Acute Category: Medical Code(s): I48.91 - Unspecified atrial fibrillation (4) Cellulitis and abscess of finger, unspecified Status: Acute Category: Medical Code(s): L03.019 - Cellulitis of unspecified finger; L02.519 - Cutaneous abscess of unspecified hand (5) Cellulitis, neck Status: Acute Category: Medical Code(s): L03.221 - Cellulitis of neck (6) Afib Status: Acute Category: Medical Code(s): I48.91 - Unspecified atrial fibrillation (7) Carbuncle, neck Status: Acute Category: Medical Code(s): L02.13 - Carbuncle of neck - Assessment and plan all Dx Assessment and Plan for all problems:: Pharmacokinetic dosing service Objective: Age: 80 yo Serum creatinine: 1.6 mg/dL Height: 72.0 Inches Weight (kg): 110.4 Assessment: MEASURED PEAK: 40.1 MEASURED TROUGH: 20 IBW (kg): 77.60 Dosing wt(kg): 110.4 Estimated Creatinine clearance (ml/min): 40.4 CRCL method: Cockcroft and Gault using ibw(default). Drug selected: Vancomycin Loading dose (mg): Vd (liters): 77.3 (factor used: 0.7 L/kg) Erick (hr-1): 0.038 Half life (hrs): 18.24 CLvanco=?? 2.937 L/hr Recommended dose: 1750 mg Interval: 24 hrs Infusion time (hrs): 2.0 Predicted peak (mcg/mL): 36.4 Predicted trough (mcg/mL): 15.78 Total body weight is being used for vancomycin dosing. Recommendations: CHANGE VANOMYCIN TO Vancomycin 1750 mg q 24 hrs with an expected Cpeak of 36.4 mcg/ml and an expected Ctrough of 15.78 mcg/ml AUC 0-
--- NOTE | 2021-07-05 12:11 | HMH.ACPN2 ---
Internal Medicine - PN: Subj *Date: 07/05/21 *Time: 12:13 Interval history: Patient had an uneventful night. He is much more alert and lucid this morning. General surgery notes are reviewed, greatly appreciated. Further debridement was mentioned Patient's white count remains elevated but is trending downward. Appears to be having a good response to vancomycin. Cultures and wound cultures are growing MRSA, sensitive to vancomycin Exam Vital signs and Labs for Last 24 Hours: Temp Pulse Resp BP Pulse Ox 98.7 F 114 H 16 137/93 H 97 07/05/21 10:47 07/05/21 10:47 07/05/21 10:47 07/05/21 10:47 07/05/21 10:47 Laboratory Results - last 24 hr 07/04/21 13:46: Vancomycin Peak 40.1 H* 07/05/21 05:15: WBC 20.1 H*, RBC 3.90 L, Hgb 12.5 L, Hct 38.4 L, MCV 98.6 H, MCH 31.9 H, MCHC 32.4, RDW 13.9, Plt Count 357, MPV 7.7, Neut % (Auto) 84.9 H, Lymph % (Auto) 9.5 L, [place] % (Auto) 4.6, Eos % (Auto) 0.5, Baso % (Auto) 0.5, Neut # (Auto) 17.1 H, Lymph # (Auto) 1.9, [place] # (Auto) 0.9, Eos # (Auto) 0.1, Baso # (Auto) 0.1, Total Counted 100, Neutrophils % (Manual) 77 H, Band Neutrophils % 4.0, Lymphocytes % (Manual) 17, Monocytes % (Manual) 2, Platelet Estimate Normal, RBC Morphology Normal 07/05/21 05:15: Sodium 133 L, Potassium 4.3, Chloride 99, Carbon Dioxide 26, Anion Gap 12.3, BUN 22 H D, Creatinine 1.60 H D, Estimated Creat Clear 59, Estimated GFR 42 L, Est GFR ( Amer) 51 L D, Glucose 122 H, Calcium 8.2 L I & O for Last 24 hours: Intake & Output 07/02/21 07/03/21 07/04/21 07/05/21 23:59 23:59 23:59 23:59 Intake Total 720 / 720 360 / 360 2642 / 2642 1200 / 1200 Output Total 900 / 900 1350 / 1650 1700 / 2400 1100 / 1100 Balance -180 / -180 -990 / -1290 942 / 242 100 / 100 Weight 247 lb 248 lb 1 oz 248 lb 0.991 oz 249 lb Microbiology Reports for the Last 24 Hours: Microbiology 07/03/21 12:55 Finger,Right Middle Gram Stain - Final 07/03/21 12:55 Finger,Right Middle Wound Culture - Preliminary Gram Positive Cocci - Constitutional no acute distress, chronically ill appearing - *Routine HEENT Exam Head: Present: normocephalic Eye: Present: EOMI, PERRL ENT: Present: mucous membranes moist - *Routine Neck Exam Present: supple. Absent: lymphadenopathy - *Routine Respiratory Exam Present: CTA bilaterally - *Routine Cardiovascular Exam Present: RRR, tachycardia - *Routine Abdominal Exam Present: soft, normoactive bowel sounds. Absent: tenderness - *Routine Extremities Exam Present: tenderness - *Routine Skin Exam Present: lesions, wounds - *Routine Neurological Exam Present: alert, oriented X3, vision grossly intact, hearing grossly intact Assessment and Plan (1) Leukocytosis Status: Acute Category: Medical Code(s): D72.829 - Elevated white blood cell count, unspecified (2) Essential hypertension Status: Chronic Category: Medical Code(s): I10 - Essential (primary) hypertension (3) Atrial fibrillation with rapid ventricular response Status: Acute Category: Medical Code(s): I48.91 - Unspecified atrial fibrillation (4) Cellulitis and abscess of finger, unspecified Status: Acute Category: Medical Code(s): L03.019 - Cellulitis of unspecified finger; L02.519 - Cutaneous abscess of unspecified hand (5) Cellulitis, neck Status: Acute Category: Medical Code(s): L03.221 - Cellulitis of neck (6) Afib Status: Acute Category: Medical Code(s): I48.91 - Unspecified atrial fibrillation (7) Carbuncle, neck Status: Acute Category: Medical Code(s): L02.13 - Carbuncle of neck (8) MRSA (methicillin resistant Staphylococcus aureus) septicemia Status: Acute Category: Medical Code(s): A41.02 - Sepsis due to Methicillin resistant Staphylococcus aureus - Assessment and plan all Dx Assessment and Plan for all problems:: We will continue his current course of antibiotics. MRSA septicemia will require a prolo
--- NOTE | 2021-07-05 18:01 | HMH.ACPN ---
Internal Medicine - PN: Subj *Date: 07/05/21 *Time: 18:01 Exam Vital signs and Labs for Last 24 Hours: Temp Pulse Resp BP Pulse Ox 98.6 F 80 18 123/72 95 07/05/21 15:57 07/05/21 15:57 07/05/21 15:57 07/05/21 15:57 07/05/21 15:57 Laboratory Results - last 24 hr 07/05/21 05:15: WBC 20.1 H*, RBC 3.90 L, Hgb 12.5 L, Hct 38.4 L, MCV 98.6 H, MCH 31.9 H, MCHC 32.4, RDW 13.9, Plt Count 357, MPV 7.7, Neut % (Auto) 84.9 H, Lymph % (Auto) 9.5 L, [place] % (Auto) 4.6, Eos % (Auto) 0.5, Baso % (Auto) 0.5, Neut # (Auto) 17.1 H, Lymph # (Auto) 1.9, [place] # (Auto) 0.9, Eos # (Auto) 0.1, Baso # (Auto) 0.1, Total Counted 100, Neutrophils % (Manual) 77 H, Band Neutrophils % 4.0, Lymphocytes % (Manual) 17, Monocytes % (Manual) 2, Platelet Estimate Normal, RBC Morphology Normal 07/05/21 05:15: Sodium 133 L, Potassium 4.3, Chloride 99, Carbon Dioxide 26, Anion Gap 12.3, BUN 22 H D, Creatinine 1.60 H D, Estimated Creat Clear 59, Estimated GFR 42 L, Est GFR ( Amer) 51 L D, Glucose 122 H, Calcium 8.2 L I & O for Last 24 hours: Intake & Output 07/02/21 07/03/21 07/04/21 07/05/21 23:59 23:59 23:59 23:59 Intake Total 720 / 720 360 / 360 2642 / 2642 1560 / 1560 Output Total 900 / 900 1350 / 1650 1700 / 2400 2049 Balance -180 / -180 -990 / -1290 942 / 242 -490 / -490 Weight 112.037 kg 112.519 kg 112.519 kg 112.945 kg Microbiology Reports for the Last 24 Hours: Microbiology 07/03/21 12:55 Finger,Right Middle Gram Stain - Final 07/03/21 12:55 Finger,Right Middle Wound Culture - Preliminary Gram Positive Cocci Assessment and Plan (1) Leukocytosis Status: Acute Category: Medical Code(s): D72.829 - Elevated white blood cell count, unspecified (2) Essential hypertension Status: Chronic Category: Medical Code(s): I10 - Essential (primary) hypertension (3) Atrial fibrillation with rapid ventricular response Status: Acute Category: Medical Code(s): I48.91 - Unspecified atrial fibrillation (4) Cellulitis and abscess of finger, unspecified Status: Acute Category: Medical Code(s): L03.019 - Cellulitis of unspecified finger; L02.519 - Cutaneous abscess of unspecified hand (5) Cellulitis, neck Status: Acute Category: Medical Code(s): L03.221 - Cellulitis of neck (6) Afib Status: Acute Category: Medical Code(s): I48.91 - Unspecified atrial fibrillation (7) Carbuncle, neck Status: Acute Category: Medical Code(s): L02.13 - Carbuncle of neck (8) MRSA (methicillin resistant Staphylococcus aureus) septicemia Status: Acute Category: Medical Code(s): A41.02 - Sepsis due to Methicillin resistant Staphylococcus aureus The patient's infection will respond to the chosen ABx?: Yes (STAPH AUREUS S TO VANCOMYCIN) Is the patient receiving the right drug, dose, and route?: Yes Could a more targeted ABx be ordered?: No
--- NOTE | 2021-07-05 18:30 | PC.NURSE ---
he is ao to person, afib noted on tele, he denies pain, no n/v/d noted this shift, other vital signs stable.
[2021-07-06] VITALS (9 sets, daily range): BP systolic 121–164; BP diastolic 62–78; PULSE 68–107; RESP 16–20; TEMP 36.4–37; O2SAT 95–100; BMI 33.7
--- NOTE | 2021-07-06 00:02 | P.PN_ITS ---
Subjective Date: 07/05/21 Time: 20:00 Principal diagnosis: Complex paronychia, right middle finger Interval history: 80-year-old male status post incision and drainage of complex paronychia on 06/30/2021 followed by further debridement on 07/03/2021. Patient is sitting out in the chair and says he is doing well. He appears much more alert and lucid today. He reports minimal pain in his right middle finger. PN: Obj Ex Vital signs: Temp Pulse Resp BP Pulse Ox 98.2 F 92 H 18 139/84 94 L 07/05/21 20:00 07/05/21 20:00 07/05/21 20:00 07/05/21 20:00 07/05/21 20:00 Narrative: Laboratory Results - last 24 hr 07/05/21 05:15: WBC 20.1 H*, RBC 3.90 L, Hgb 12.5 L, Hct 38.4 L, MCV 98.6 H, MCH 31.9 H, MCHC 32.4, RDW 13.9, Plt Count 357, MPV 7.7, Neut % (Auto) 84.9 H, Lymph % (Auto) 9.5 L, [place] % (Auto) 4.6, Eos % (Auto) 0.5, Baso % (Auto) 0.5, Neut # (Auto) 17.1 H, Lymph # (Auto) 1.9, [place] # (Auto) 0.9, Eos # (Auto) 0.1, Baso # (Auto) 0.1, Total Counted 100, Neutrophils % (Manual) 77 H, Band Neutrophils % 4.0, Lymphocytes % (Manual) 17, Monocytes % (Manual) 2, Platelet Estimate Normal, RBC Morphology Normal 07/05/21 05:15: Sodium 133 L, Potassium 4.3, Chloride 99, Carbon Dioxide 26, Anion Gap 12.3, BUN 22 H D, Creatinine 1.60 H D, Estimated Creat Clear 59, Estimated GFR 42 L, Est GFR ( Amer) 51 L D, Glucose 122 H, Calcium 8.2 L Exam: General appearance: alert, awake, no acute distress Cardiovascular: regular rate & rhythm Respiratory: No respiratory distress noted, speaks in full sentences ABD: soft and non tender Neuro: alert, awake, oriented x 3 On examination of the right upper extremity, the dressings are clean, dry and intact. No soakage or strikethrough noted. I have changed the dressings and removed the iodoform gauze used for packing the wounds. Multiple deep ulcerations noted over the middle and distal phalanges with exposed flexor and extensor tendons. Small amount of purulent material noted in the wounds. Over all the finger is less swollen compared to previous exams. The skin over the pulp of the finger has dusky discoloration. He reports numbness over the tip of the finger. He has very limited movements at the PIP and IP joints of the right middle finger. Other fingers are healthy with intact sensation and good capillary refill. Progress Note: A&P (1) Leukocytosis Status: Acute (2) Essential hypertension Status: Chronic (3) Atrial fibrillation with rapid ventricular response Status: Acute (4) Cellulitis and abscess of finger, unspecified Status: Acute (5) Cellulitis, neck Status: Acute (6) Afib Status: Acute (7) Carbuncle, neck Status: Acute (8) MRSA (methicillin resistant Staphylococcus aureus) septicemia Status: Acute Assessment and Plan for All Diagnoses:: I have reviewed the clinical findings and progress with the patient. The finger is gradually improving but I am unsure if the wounds satisfactorily. Even if they do, he may end up with a stiff, nonfunctional and possibly painful finger. I have told him that he may eventually end up needing either partial or complete amputation of the right middle finger. Patient wants us to continue efforts to try and to save the finger at this stage. Recommend continuation of IV/oral antibiotics as appropriate. Recommend regular wound dressings. If patient is discharged from the hospital, he could continue dressings to the wound care clinic. Continue medical management as per Dr. Mcguire.
--- NOTE | 2021-07-06 03:18 | PC.NURSE ---
A&OX4, HOWEVER PT HAS AWAKEN CONFUSED AT TIMES. TOLERATING RA WELL. REMAINS AFIB ON MONITOR. PT NEEDING X2 ASSIST FOR ADLS. PT IS UNABLE TO STAND OR SIT UP IN THE BED ON HIS OWN. PT STRUGGLES HOLDING HIS URINAL TO VOID. DRESSINGS TO BACK OF NECK ARE BEING CHANGED NEEDED TO KEEP INNER MOST GAUZE DRY POSSIBLE. DRESSING TO R HAND CHANGED WELL, MD TAMAYO AT BEDSIDE LOOKING AT FINGER. ALL DRESSINGS CDI AT THIS TIME. PT HAS NOT C/O PAIN THIS SHIFT. PT HAS BEEN AWAKE MAJORITY OF SHIFT. VSS WILL CONTINUE TO MONITOR.
[2021-07-06 06:36] LABS: C-Reactive Protein 64.6 mg/L (0-4)
[2021-07-06 06:56] LABS: Basophils # 0.1 K/mm3 (0-0.2); Basophils % 0.3 % (0.1-2.0); Eosinophils # 0.1 K/mm3 (0.0-0.4); Eosinophils % 0.4 % (0.1-12.0); Hemoglobin 11.9 g/dL (14.1-18.0); Lymphocytes # 1.8 K/mm3 (0.7-4.5); Lymphocytes % 8.2 % (10-50); Mean Corpuscular HGB Conc 32.3 g/dL (31.8-35.4); Mean Corpuscular Hemoglobin 31.5 pg (27.0-31.2); Mean Corpuscular Volume 97.3 fl (80-94); Mean Platelet Volume 7.8 fl (7.4-10.4); Monocytes # 0.9 K/mm3 (0.1-1.0); Monocytes % 4.3 % (1.7-9.3); Neutrophils # 18.6 K/mm3 (1.8-7.8); Neutrophils % 86.7 % (37.0-80.0); Platelet Count 336 K/mm3 (142-424); Red Cell Distribution Width 13.8 % (11.5-17.5); White Blood Count 21.4 K/mm3 (4.8-10.8)
[2021-07-06 07:23] LABS: MANUAL DIFFERENTIAL MANUAL DIFFERENTIAL (MANUAL DIFF)
--- NOTE | 2021-07-06 07:24 | PC.NURSE ---
LAB RESULT RECEIVED FROM LAB. MRSA DETECTED IN R MIDDLE FINGER. NAME, ROOM NUMBER, AND CONFIRMED. PT IS ALREADY IN CONTACT FOR MRSA IN NECK AND BLOOD.
--- NOTE | 2021-07-06 08:22 | XR_ITS ---
PROCEDURE: XR CHEST PORTABLE CLINICAL HISTORY: soa COMPARISON: CR XR CHEST PORTABLE from 06/30/2021 FINDINGS: The cardiomediastinal silhouette and pulmonary vascularity are within normal limits. Increased markings right lung base suggesting underlying atelectasis or infiltrate. No acute bony abnormalities. IMPRESSION: Right basilar airspace disease Dictated by: Jarvis Oliveira MD 07/06/2021 09:51 Jarvis Oliveira MD in [facility] 07/06/2021 09:51
--- NOTE | 2021-07-06 08:24 | P.PN_ITS ---
Subjective Narrative: Increased frequency of dressing changes to the posterior neck was implemented yesterday. He states that he is doing okay Progress Note: A&P (1) Leukocytosis Status: Acute (2) Essential hypertension Status: Chronic (3) Atrial fibrillation with rapid ventricular response Status: Acute (4) Cellulitis and abscess of finger, unspecified Status: Acute (5) Cellulitis, neck Status: Acute (6) Afib Status: Acute (7) Carbuncle, neck Status: Acute Assessment and plan: Continue antibiotics and dressing changes. (8) MRSA (methicillin resistant Staphylococcus aureus) septicemia Status: Acute Exam Vital signs and Labs for Last 24 Hours: Temp Pulse Resp BP Pulse Ox 97.8 F 84 18 142/77 H 96 07/06/21 04:00 07/06/21 04:00 07/06/21 04:00 07/06/21 04:00 07/06/21 04:00 Laboratory Results - last 24 hr 07/06/21 05:53: WBC 21.4 H*, RBC 3.80 L, Hgb 11.9 L, Hct 37.0 L, MCV 97.3 H, MCH 31.5 H, MCHC 32.3, RDW 13.8, Plt Count 336, MPV 7.8, Neut % (Auto) 86.7 H, Lymph % (Auto) 8.2 L, [place] % (Auto) 4.3, Eos % (Auto) 0.4, Baso % (Auto) 0.3, Neut # (Auto) 18.6 H, Lymph # (Auto) 1.8, [place] # (Auto) 0.9, Eos # (Auto) 0.1, Baso # (Auto) 0.1 07/06/21 05:53: C-Reactive Protein 64.6 H I & O for Last 24 hours: Intake & Output 07/03/21 07/04/21 07/05/21 07/06/21 11:59 11:59 11:59 11:59 Intake Total 300 / 300 1806 / 1806 2396 / 2396 840 / 840 Output Total 1650 / 1650 700 / 1050 2500 / 2500 1500 / 1500 Balance -1350 / -1350 1106 / 756 -104 / -104 -660 / -660 Weight 248 lb 1 oz 248 lb 0.991 oz 249 lb 249 lb 2 oz Microbiology Reports for the Last 24 Hours: Microbiology 07/03/21 12:55 Finger,Right Middle Gram Stain - Final 07/03/21 12:55 Finger,Right Middle Wound Culture - Final Staphylococcus aureus 07/03/21 12:55 Finger,Right Middle - Wound - Final - Constitutional no acute distress - *Routine Neck Exam Comments: Posterior neck complex carbuncle with 2 open wounds continuing to slowly improve. No spreading cellulitis. Induration slightly improved. - *Routine Respiratory Exam Absent: respiratory distress - *Routine Cardiovascular Exam Absent: tachycardia
[2021-07-06 09:26] LABS: Hypochromasia 1+; Lymphocytes % 8 % (10-50); Macrocytosis 1+; Monocytes % 3 % (2-9); Neutrophils % 89 % (42-76); Platelet Estimate Normal; Total Cells Counted 100
[2021-07-06 10:30] LABS: Anion Gap 10.2 mEq/L (5-15); Blood Urea Nitrogen 28 mg/dl (9-20); Calcium 8.2 mg/dl (8.4-10.2); Carbon Dioxide 29 mmol/L (22.0-30.0); Chloride 96 mmol/L (98-107); Creatinine Clearance Estimated 55 mL/min (50-200); Estimated Glomerular Filt Rate 39 ml/min (>60); GFR (African American) 47 ML/MIN (>60); Glucose 163 mg/dl (74-100); Potassium 4.2 mmoL/L (3.5-5.1); Sodium 131 mmol/L (136-145)
[2021-07-06 12:36] LABS: Erythrocyte Sedimentation Rate > 140 mm/hr (0-20)
--- NOTE | 2021-07-06 13:16 | HMH.ACPN2 ---
Internal Medicine - PN: Subj *Date: 07/06/21 *Time: 08:20 Interval history: pt sitting up in chair voiced no c/o Exam Vital signs and Labs for Last 24 Hours: Temp Pulse Resp BP Pulse Ox 97.6 F 86 20 146/71 H 97 07/06/21 11:17 07/06/21 11:17 07/06/21 11:17 07/06/21 11:17 07/06/21 11:17 Laboratory Results - last 24 hr 07/06/21 05:53: WBC 21.4 H*, RBC 3.80 L, Hgb 11.9 L, Hct 37.0 L, MCV 97.3 H, MCH 31.5 H, MCHC 32.3, RDW 13.8, Plt Count 336, MPV 7.8, Neut % (Auto) 86.7 H, Lymph % (Auto) 8.2 L, [place] % (Auto) 4.3, Eos % (Auto) 0.4, Baso % (Auto) 0.3, Neut # (Auto) 18.6 H, Lymph # (Auto) 1.8, [place] # (Auto) 0.9, Eos # (Auto) 0.1, Baso # (Auto) 0.1, Total Counted 100, Neutrophils % (Manual) 89 H, Lymphocytes % (Manual) 8 L, Monocytes % (Manual) 3, Platelet Estimate Normal, Hypochromasia 1+, Macrocytosis 1+, ESR > 140 H 07/06/21 05:53: C-Reactive Protein 64.6 H 07/06/21 09:37: Sodium 131 L, Potassium 4.2, Chloride 96 L, Carbon Dioxide 29, Anion Gap 10.2, BUN 28 H D, Creatinine 1.70 H, Estimated Creat Clear 55, Estimated GFR 39 L, Est GFR ( Amer) 47 L, Glucose 163 H, Calcium 8.2 L I & O for Last 24 hours: Intake & Output 07/04/21 07/05/21 07/06/21 07/07/21 11:59 11:59 11:59 11:59 Intake Total 1806 / 1806 2396 / 2396 1320 / 1320 360 / 360 Output Total 700 / 1050 2500 / 2500 1500 / 1500 Balance 1106 / 756 -104 / -104 -180 / -180 360 / 360 Weight 248 lb 0.991 oz 249 lb 249 lb 2 oz Microbiology Reports for the Last 24 Hours: Microbiology 07/01/21 11:50 Neck - Abscess - Final 07/01/21 11:50 Neck - Abscess - Final 07/03/21 12:55 Finger,Right Middle Gram Stain - Final 07/03/21 12:55 Finger,Right Middle Wound Culture - Final Staphylococcus aureus 07/03/21 12:55 Finger,Right Middle - Wound - Final - Constitutional no acute distress - *Routine HEENT Exam Head: Present: normocephalic Eye: Present: PERRL ENT: Present: mucous membranes moist - *Routine Neck Exam Present: supple. Absent: lymphadenopathy - *Routine Respiratory Exam Present: crackles - *Routine Cardiovascular Exam Present: irregular rhythm - *Routine Abdominal Exam Present: soft, normoactive bowel sounds. Absent: tenderness - *Routine Extremities Exam Present: edema. Absent: cyanosis, clubbing - *Routine Skin Exam Present: warm, wounds. Absent: rash Comments: dressing to neck c/d/i dressing to rt 2nd finger c/d/i abrasion to rt knee - *Routine Neurological Exam Present: alert, oriented X3 Assessment and Plan (1) Leukocytosis Status: Acute Category: Medical Code(s): D72.829 - Elevated white blood cell count, unspecified (2) Essential hypertension Status: Chronic Category: Medical Code(s): I10 - Essential (primary) hypertension (3) Atrial fibrillation with rapid ventricular response Status: Acute Category: Medical Code(s): I48.91 - Unspecified atrial fibrillation (4) Cellulitis and abscess of finger, unspecified Status: Acute Category: Medical Code(s): L03.019 - Cellulitis of unspecified finger; L02.519 - Cutaneous abscess of unspecified hand (5) Cellulitis, neck Status: Acute Category: Medical Code(s): L03.221 - Cellulitis of neck (6) Afib Status: Acute Category: Medical Code(s): I48.91 - Unspecified atrial fibrillation (7) Carbuncle, neck Status: Acute Category: Medical Code(s): L02.13 - Carbuncle of neck (8) MRSA (methicillin resistant Staphylococcus aureus) septicemia Status: Acute Category: Medical Code(s): A41.02 - Sepsis due to Methicillin resistant Staphylococcus aureus (9) Low sodium levels Status: Acute Category: Medical Code(s): E87.1 - Hypo-osmolality and hyponatremia - Assessment and plan all Dx Assessment and Plan for all problems:: rounded with dr hurley all orders per dr hurley lasix 20mg for edema and crackles iv fluids for elevated cre and low na speech eval
[2021-07-06 14:56] LABS: Coronavirus 19, PCR Not Detected (NotDetected); Influenza A, PCR Not Detected (NotDetected); Influenza B, PCR Not Detected (NotDetected)
--- NOTE | 2021-07-06 17:56 | P.PN_ITS ---
Subjective Date: 07/06/21 Time: 17:20 Principal diagnosis: Complex paronychia, right middle finger Interval history: Patient is status post incision and drainage followed by debridement of chronic paronychia, right middle finger, post op day #three. Patient is sitting out in the chair and says he is doing well. Patient has minimal pain and says it's well-controlled with medication. No history of any nausea or vomiting. Patient says she is eating and drinking well. PN: Obj Ex Vital signs: Temp Pulse Resp BP Pulse Ox 97.7 F 95 H 18 121/62 97 07/06/21 15:41 07/06/21 15:41 07/06/21 15:41 07/06/21 15:41 07/06/21 15:41 Narrative: Laboratory Results - last 24 hr 07/06/21 05:53: WBC 21.4 H*, RBC 3.80 L, Hgb 11.9 L, Hct 37.0 L, MCV 97.3 H, MCH 31.5 H, MCHC 32.3, RDW 13.8, Plt Count 336, MPV 7.8, Neut % (Auto) 86.7 H, Lymph % (Auto) 8.2 L, [place] % (Auto) 4.3, Eos % (Auto) 0.4, Baso % (Auto) 0.3, Neut # (Auto) 18.6 H, Lymph # (Auto) 1.8, [place] # (Auto) 0.9, Eos # (Auto) 0.1, Baso # (Auto) 0.1, Total Counted 100, Neutrophils % (Manual) 89 H, Lymphocytes % (Manual) 8 L, Monocytes % (Manual) 3, Platelet Estimate Normal, Hypochromasia 1+, Macrocytosis 1+, ESR > 140 H 07/06/21 05:53: C-Reactive Protein 64.6 H 07/06/21 09:37: Sodium 131 L, Potassium 4.2, Chloride 96 L, Carbon Dioxide 29, Anion Gap 10.2, BUN 28 H D, Creatinine 1.70 H, Estimated Creat Clear 55, Estimated GFR 39 L, Est GFR ( Amer) 47 L, Glucose 163 H, Calcium 8.2 L Exam: General appearance: alert, active, awake, no acute distress Cardiovascular: regular rate & rhythm, normal peripheral pulses Respiratory: No respiratory distress noted, speaks in full sentences ABD: soft and non tender Neuro: alert, awake, oriented x 3 On examination of the right upper extremity, the dressings are clean, dry and intact. He has good range of other finger movements. Progress Note: A&P (1) Leukocytosis Status: Acute (2) Essential hypertension Status: Chronic (3) Atrial fibrillation with rapid ventricular response Status: Acute (4) Cellulitis and abscess of finger, unspecified Status: Acute (5) Cellulitis, neck Status: Acute (6) Afib Status: Acute (7) Carbuncle, neck Status: Acute (8) MRSA (methicillin resistant Staphylococcus aureus) septicemia Status: Acute Assessment and Plan for All Diagnoses:: I have reviewed the clinical findings and progress with the patient. Patient is doing well from an orthopedic standpoint. 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 I have told him that there is a significant possibility that he may end up needing amputation of the finger. However, patient again wants to try and save his finger. Recommend regular dressing changes as needed. Continue medical management as per Dr. Mcguire.
[2021-07-07] VITALS (7 sets, daily range): BP systolic 100–152; BP diastolic 54–85; PULSE 80–101; RESP 16–19; TEMP 36.4–37.2; O2SAT 92–97; BMI 34.0
[2021-07-07 06:12] LABS: Basophils # 0.1 K/mm3 (0-0.2); Basophils % 0.4 % (0.1-2.0); Eosinophils # 0.1 K/mm3 (0.0-0.4); Eosinophils % 0.3 % (0.1-12.0); Hematocrit 35.8 % (42.0-52.0); Hemoglobin 11.6 g/dL (14.1-18.0); Lymphocytes # 1.7 K/mm3 (0.7-4.5); Lymphocytes % 8.7 % (10-50); Mean Corpuscular HGB Conc 32.3 g/dL (31.8-35.4); Mean Corpuscular Hemoglobin 31.5 pg (27.0-31.2); Mean Corpuscular Volume 97.5 fl (80-94); Mean Platelet Volume 7.8 fl (7.4-10.4); Monocytes # 1.1 K/mm3 (0.1-1.0); Monocytes % 5.5 % (1.7-9.3); Neutrophils # 17.1 K/mm3 (1.8-7.8); Neutrophils % 85.2 % (37.0-80.0); Platelet Count 309 K/mm3 (142-424); Red Blood Count 3.68 M/mm3 (4.60-6.20); Red Cell Distribution Width 13.9 % (11.5-17.5)
[2021-07-07 06:33] LABS: MANUAL DIFFERENTIAL MANUAL DIFFERENTIAL (MANUAL DIFF)
[2021-07-07 08:24] LABS: Lymphocytes % 10 % (10-50); Monocytes % 4 % (2-9); Neutrophils % 86 % (42-76); Platelet Estimate Normal; Total Cells Counted 100
[2021-07-07 08:25] LABS: Hypochromasia 1+; Macrocytosis 1+
--- NOTE | 2021-07-07 08:45 | HMH.GSPN ---
Subjective Patient reports: no new complaints Progress Note: A&P (1) Leukocytosis Status: Acute (2) Essential hypertension Status: Chronic (3) Atrial fibrillation with rapid ventricular response Status: Acute (4) Cellulitis and abscess of finger, unspecified Status: Acute (5) Cellulitis, neck Status: Acute (6) Afib Status: Acute (7) Carbuncle, neck Status: Acute Assessment and plan: Patient may need additional bedside or operative debridement. Wound care is complicated. Continue antibiotics. (8) MRSA (methicillin resistant Staphylococcus aureus) septicemia Status: Acute (9) Low sodium levels Status: Acute Exam Vital signs and Labs for Last 24 Hours: Temp Pulse Resp BP Pulse Ox 97.6 F 97 H 19 145/75 H 94 L 07/07/21 07:28 07/07/21 07:28 07/07/21 07:28 07/07/21 07:28 07/07/21 07:28 Laboratory Results - last 24 hr 07/06/21 05:53: Total Counted 100, Neutrophils % (Manual) 89 H, Lymphocytes % (Manual) 8 L, Monocytes % (Manual) 3, Platelet Estimate Normal, Hypochromasia 1+, Macrocytosis 1+, ESR > 140 H 07/06/21 09:37: Sodium 131 L, Potassium 4.2, Chloride 96 L, Carbon Dioxide 29, Anion Gap 10.2, BUN 28 H D, Creatinine 1.70 H, Estimated Creat Clear 55, Estimated GFR 39 L, Est GFR ( Amer) 47 L, Glucose 163 H, Calcium 8.2 L 07/06/21 14:45: SARS-CoV-2 (PCR) Not detected, Influenza A Untype (PCR) Not detected, Influenza Type B (PCR) Not detected 07/07/21 05:56: WBC 20.0 H, RBC 3.68 L, Hgb 11.6 L, Hct 35.8 L, MCV 97.5 H, MCH 31.5 H, MCHC 32.3, RDW 13.9, Plt Count 309, MPV 7.8, Neut % (Auto) 85.2 H, Lymph % (Auto) 8.7 L, [place] % (Auto) 5.5, Eos % (Auto) 0.3, Baso % (Auto) 0.4, Neut # (Auto) 17.1 H, Lymph # (Auto) 1.7, [place] # (Auto) 1.1 H, Eos # (Auto) 0.1, Baso # (Auto) 0.1, Total Counted 100, Neutrophils % (Manual) 86 H, Lymphocytes % (Manual) 10, Monocytes % (Manual) 4, Platelet Estimate Normal, Hypochromasia 1+, Macrocytosis 1+ I & O for Last 24 hours: Intake & Output 07/04/21 07/05/21 07/06/21 07/07/21 11:59 11:59 11:59 11:59 Intake Total 1806 / 1806 2396 / 2396 1320 / 1320 1571 / 1571 Output Total 700 / 1050 2500 / 2500 1500 / 1500 3460 / 3460 Balance 1106 / 756 -104 / -104 -180 / -180 -1889 / -1889 Weight 248 lb 0.991 oz 249 lb 249 lb 2 oz 251 lb 3 oz Microbiology Reports for the Last 24 Hours: Microbiology 07/01/21 11:50 Neck - Abscess - Final 07/01/21 11:50 Neck - Abscess - Final 07/03/21 12:55 Finger,Right Middle Gram Stain - Final 07/03/21 12:55 Finger,Right Middle Wound Culture - Final Staphylococcus aureus - *Routine Skin Exam Comments: Wound with exudate. There is some eschar inferiorly. There is pooling of thin brown pus within the wound. Erythema and induration most prominent inferiorly.
--- NOTE | 2021-07-07 10:30 | HMH.ACPN2 ---
Internal Medicine - PN: Subj *Date: 07/07/21 *Time: 13:02 Interval history: Patient remains alert and talkative. Staff relays no significant events during the night. General surgery was examining the patient this morning as well, Dr. Evans notes ongoing issues with the wound that may require further debridement. Dr. Infante's operative note is reviewed. Patient's white count remains elevated at 20,000. He is on IV vancomycin. Blood and wound cultures grew out MRSA. Patient is in A. fib at a controlled rate. It was decided that anticoagulation should be held due to his history of recurrent falls. He denies chest pain or shortness of breath. Exam Vital signs and Labs for Last 24 Hours: Temp Pulse Resp BP Pulse Ox 97.6 F 97 H 19 145/75 H 94 L 07/07/21 07:28 07/07/21 07:28 07/07/21 07:28 07/07/21 07:28 07/07/21 07:28 Laboratory Results - last 24 hr 07/06/21 05:53: ESR > 140 H 07/06/21 09:37: Sodium 131 L, Potassium 4.2, Chloride 96 L, Carbon Dioxide 29, Anion Gap 10.2, BUN 28 H D, Creatinine 1.70 H, Estimated Creat Clear 55, Estimated GFR 39 L, Est GFR ( Amer) 47 L, Glucose 163 H, Calcium 8.2 L 07/06/21 14:45: SARS-CoV-2 (PCR) Not detected, Influenza A Untype (PCR) Not detected, Influenza Type B (PCR) Not detected 07/07/21 05:56: WBC 20.0 H, RBC 3.68 L, Hgb 11.6 L, Hct 35.8 L, MCV 97.5 H, MCH 31.5 H, MCHC 32.3, RDW 13.9, Plt Count 309, MPV 7.8, Neut % (Auto) 85.2 H, Lymph % (Auto) 8.7 L, [place] % (Auto) 5.5, Eos % (Auto) 0.3, Baso % (Auto) 0.4, Neut # (Auto) 17.1 H, Lymph # (Auto) 1.7, [place] # (Auto) 1.1 H, Eos # (Auto) 0.1, Baso # (Auto) 0.1, Total Counted 100, Neutrophils % (Manual) 86 H, Lymphocytes % (Manual) 10, Monocytes % (Manual) 4, Platelet Estimate Normal, Hypochromasia 1+, Macrocytosis 1+ I & O for Last 24 hours: Intake & Output 07/04/21 07/05/21 07/06/21 07/07/21 23:59 23:59 23:59 23:59 Intake Total 2642 / 2642 1920 / 1920 1811 / 1811 360 / 360 Output Total 1700 / 2400 2050 / 2325 3310 / 3310 700 / 700 Balance 942 / 242 -130 / -405 -1499 / -1499 -340 / -340 Weight 248 lb 0.991 oz 249 lb 249 lb 2 oz 251 lb 3 oz Microbiology Reports for the Last 24 Hours: Microbiology 07/01/21 11:50 Neck - Abscess - Final 07/01/21 11:50 Neck - Abscess - Final 07/03/21 12:55 Finger,Right Middle Gram Stain - Final 07/03/21 12:55 Finger,Right Middle Wound Culture - Final Staphylococcus aureus - Constitutional no acute distress, obese, disheveled - *Routine HEENT Exam Head: Absent: atraumatic Eye: Present: EOMI ENT: Present: mucous membranes moist - *Routine Neck Exam Present: supple, trachea midline. Absent: lymphadenopathy - *Routine Respiratory Exam Present: CTA bilaterally - *Routine Cardiovascular Exam Present: irregular rhythm, irregularly irregular. Absent: JVD - *Routine Abdominal Exam Present: soft, normoactive bowel sounds. Absent: tenderness - *Routine Extremities Exam Present: edema. Absent: cyanosis, tenderness - *Routine Skin Exam Present: lesions, wounds. Absent: jaundice - *Routine Neurological Exam Present: alert, oriented X3, vision grossly intact, hearing grossly intact Assessment and Plan (1) Leukocytosis Status: Acute Category: Medical Code(s): D72.829 - Elevated white blood cell count, unspecified (2) Essential hypertension Status: Chronic Category: Medical Code(s): I10 - Essential (primary) hypertension (3) Atrial fibrillation with rapid ventricular response Status: Acute Category: Medical Code(s): I48.91 - Unspecified atrial fibrillation (4) Cellulitis and abscess of finger, unspecified Status: Acute Category: Medical Code(s): L03.019 - Cellulitis of unspecified finger; L02.519 - Cutaneous abscess of unspecified hand (5) Cellulitis, neck Status: Acute Category: Medical Code(s): L03.221 - Cellulitis of neck (6) Afib Status: Acute Category: Medical Code(s): I48.91
--- NOTE | 2021-07-07 15:41 | HMH.SLDYSPHA ---
Speech & Language Evaluation Speech/Language Dysphagia Evaluation Start: 07/07/21 15:35 Freq: ONCE Status: Active Protocol: Document 07/07/21 15:35 ANABEL (Rec: 07/07/21 15:40 ANABEL [id number]) Dysphagia Assess/Goals/Plan Assessment Date of Evaluation: 07/07/21 Evaluation Type Initial Certification Assessment/Problems Dysphagia Does Patient Qualify for Service No Qualify/Failure Comment Patient showed no signs or symptoms of dysphagia. Recommendations PHYSICIAN CERTIFICATION: The specified therapy services are required, authorized, and reviewed every 30 days. Diet Recommendations Normal Liquid Type Recommendations Normal/Thin SL Swallow Guidelines Standard Aspiration Prec. Plan Pt/Guardian verbally ack understanding Yes of dx/prognosis/goals G -code Required No General Information General Current Food Consistancy Regular,Thin Liquids Dentition Edentulous Facial Symmetry Symmetrical Patient Orientation Person,Place,Time,Situation Ability to Follow Directions Excellent Communication Ability No Impairment Dysphagia:Food Presentation Evaluation Food Type Pureed,Mechanical Soft,Regular ,Liquid,Pudding Dysphagia Evaluation Summary Mr. Medeiros was given the following consistencies: thins via straw and open cup, pudding, pureed, mechanical soft, and regular. No signs of dysphagia noted. He did talk excessively during evaluation which made him cough during regular. Diet modifications are not needed at this time. Speech therapy is not warranted at this time. Stroke Dysphagia Assessment PHYSICIAN CERTIFICATION: I certify the specified therapy services for Dave Medeiros are required, authorized, and reviewed every 30 days.
--- NOTE | 2021-07-07 17:12 | PC.NURSE ---
Pt has been pleasant and cooperative this shift. A&O X4. No complaints of pain or SOA. Pt is on room air with sats. >90%. Lungs CTA. 2+ pitting edema noted to BLE. Posterior neck dressing changed with dry gauze and noted to C/D/I. RT middle finger dressing changed with betadine-soaked 4X4's and noted to be C/D/I. Pt uses the walker and assistance X1 to ambulate. Pt prefers to stay in the recliner and has not been in bed at all this shift. Pt uses the urinal to void. Urine is clear and yellow. No BM this shift. Appetite is good and pt eats the majority of all meals. 20 G peripheral IV in the RT AC is patent and infusing NS @ 50 ML/HR. VSS. Call light within reach. Will continue to monitor.
--- NOTE | 2021-07-07 17:18 | HMH.ORTHPN ---
Subjective Date: 07/07/21 Time: 12:15 Principal diagnosis: Complex paronychia, right middle finger Interval history: Patient is status post incision and drainage followed by debridement of chronic paronychia, right middle finger, post op day # 4. Patient is sitting out in the chair and says he is doing well. Patient has minimal pain and says it's well-controlled with medication. No history of any nausea or vomiting. Patient says he is eating and drinking well. His brother is there with him in the room at this time. PN: Obj Ex Vital signs: Temp Pulse Resp BP Pulse Ox 97.8 F 99 H 18 137/66 97 07/07/21 16:00 07/07/21 16:00 07/07/21 16:00 07/07/21 16:00 07/07/21 16:00 Narrative: Laboratory Results - last 24 hr 07/06/21 14:45: SARS-CoV-2 (PCR) Not detected, Influenza A Untype (PCR) Not detected, Influenza Type B (PCR) Not detected 07/07/21 05:56: WBC 20.0 H, RBC 3.68 L, Hgb 11.6 L, Hct 35.8 L, MCV 97.5 H, MCH 31.5 H, MCHC 32.3, RDW 13.9, Plt Count 309, MPV 7.8, Neut % (Auto) 85.2 H, Lymph % (Auto) 8.7 L, [place] % (Auto) 5.5, Eos % (Auto) 0.3, Baso % (Auto) 0.4, Neut # (Auto) 17.1 H, Lymph # (Auto) 1.7, [place] # (Auto) 1.1 H, Eos # (Auto) 0.1, Baso # (Auto) 0.1, Total Counted 100, Neutrophils % (Manual) 86 H, Lymphocytes % (Manual) 10, Monocytes % (Manual) 4, Platelet Estimate Normal, Hypochromasia 1+, Macrocytosis 1+ Exam: General appearance: alert, active, awake, no acute distress Cardiovascular: regular rate & rhythm, normal peripheral pulses Respiratory: No respiratory distress noted, speaks in full sentences ABD: soft and non tender Neuro: alert, awake, oriented x 3 On examination of the right upper extremity, the dressings are clean, dry and intact. I have change the dressings today and the finger appears less inflamed and swollen. Multiple ulcerations are present as noted previously but there is no active discharge. Both the flexor and extensor tendons are exposed in the ulcers. There is dusky discoloration of the pulp but patient reports good sensation over the pulp of the finger. He has limited range of PIP and DIP joints of the middle finger. He has good range of other finger movements. Progress Note: A&P (1) Leukocytosis Status: Acute (2) Essential hypertension Status: Chronic (3) Atrial fibrillation with rapid ventricular response Status: Acute (4) Cellulitis and abscess of finger, unspecified Status: Acute (5) Cellulitis, neck Status: Acute (6) Afib Status: Acute (7) Carbuncle, neck Status: Acute (8) MRSA (methicillin resistant Staphylococcus aureus) septicemia Status: Acute (9) Low sodium levels Status: Acute Assessment and Plan for All Diagnoses:: I have reviewed the clinical findings and progress with the patient and his brother. Patient is doing well from an orthopedic standpoint. 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 I have again told him that there is a significant possibility that the ulcers may not heal and he may end up needing amputation of the finger. However, patient is not keen on amputation and again wants to try and save his finger. Recommend regular dressing changes as needed. Continue medical management as per Dr. Mcguire. From an orthopedic perspective, patient can be discharged as appropriate from a medical standpoint. Recommend regular dressing changes as an outpatient. Follow-up in my office in 1 week's time.
[2021-07-07 21:06] LABS: Anion Gap 13.3 mEq/L (5-15); Blood Urea Nitrogen 30 mg/dl (9-20); Carbon Dioxide 28 mmol/L (22.0-30.0); Chloride 96 mmol/L (98-107); Creatinine Clearance Estimated 53 mL/min (50-200); Estimated Glomerular Filt Rate 36 ml/min (>60); GFR (African American) 44 ML/MIN (>60); Glucose 131 mg/dl (74-100); Potassium 4.3 mmoL/L (3.5-5.1); Sodium 133 mmol/L (136-145)
[2021-07-07 21:48] LABS: Vancomycin,Trough 38.3 ug/mL (5.0-10.0)
--- NOTE | 2021-07-08 03:02 | PC.NURSE ---
A&OX4. TOLERATING RA WELL. PT HAS BEEN UP TO CHAIR THUS FAR. USING URINAL TO VOID. DRESSING TO NECK BEING CHANGED NEEDED TO KEEP DRY. DRESSING TO R MIDDLE FINGER CHANGED ALSO. BOTH DRESSINGS CDI. PT HAS C/O PAIN IN HIS BACK AND LEGS X1 THIS SHIFT. TX PER DEC. PT STATES MED HELPED HIS PAIN. PT HAS NO OTHER C/O THUS FAR. PT HAS BEEN NPO SINCE MIDNIGHT, TOLERATING WELL. VSS WILL CONTINUE TO MONITOR.
[2021-07-08 03:38] VITALS: BP 137/97; PULSE 72; RESP 17; TEMP 36.8; O2SAT 96
[2021-07-08 03:56] LABS: Vancomycin,Peak 33.7 ug/ml (11-39)
[2021-07-08 05:00] VITALS: BMI 34.0
[2021-07-08 07:16] LABS: Basophils # 0.1 K/mm3 (0-0.2); Basophils % 0.3 % (0.1-2.0); Eosinophils # 0.1 K/mm3 (0.0-0.4); Eosinophils % 0.3 % (0.1-12.0); Hematocrit 35.8 % (42.0-52.0); Hemoglobin 11.3 g/dL (14.1-18.0); Lymphocytes # 1.7 K/mm3 (0.7-4.5); Lymphocytes % 10.5 % (10-50); Mean Corpuscular HGB Conc 31.4 g/dL (31.8-35.4); Mean Corpuscular Hemoglobin 31.2 pg (27.0-31.2); Mean Corpuscular Volume 99.3 fl (80-94); Mean Platelet Volume 7.7 fl (7.4-10.4); Monocytes # 0.7 K/mm3 (0.1-1.0); Monocytes % 4.4 % (1.7-9.3); Neutrophils # 13.8 K/mm3 (1.8-7.8); Neutrophils % 84.5 % (37.0-80.0); Platelet Count 309 K/mm3 (142-424); Red Blood Count 3.61 M/mm3 (4.60-6.20); Red Cell Distribution Width 13.9 % (11.5-17.5); White Blood Count 16.4 K/mm3 (4.8-10.8)
[2021-07-08 07:25] LABS: MANUAL DIFFERENTIAL MANUAL DIFFERENTIAL (MANUAL DIFF)
[2021-07-08 08:00] VITALS: BP 142/77; PULSE 94; RESP 20; TEMP 36.3; O2SAT 97
[2021-07-08 08:05] LABS: Anion Gap 11.1 mEq/L (5-15); Blood Urea Nitrogen 31 mg/dl (9-20); Calcium 8.3 mg/dl (8.4-10.2); Carbon Dioxide 29 mmol/L (22.0-30.0); Chloride 99 mmol/L (98-107); Creatinine Clearance Estimated 50 mL/min (50-200); Estimated Glomerular Filt Rate 34 ml/min (>60); GFR (African American) 41 ML/MIN (>60); Glucose 120 mg/dl (74-100); Potassium 4.1 mmoL/L (3.5-5.1); Sodium 135 mmol/L (136-145)
--- NOTE | 2021-07-08 08:17 | HMH.GSPN ---
Subjective Patient reports: no new complaints Progress Note: A&P (1) Leukocytosis Status: Acute (2) Essential hypertension Status: Chronic (3) Atrial fibrillation with rapid ventricular response Status: Acute (4) Cellulitis and abscess of finger, unspecified Status: Acute (5) Cellulitis, neck Status: Acute (6) Afib Status: Acute (7) Carbuncle, neck Status: Acute Assessment and plan: Complex carbuncle with increasing induration along the inferior margin of both incision/drainage wounds and increased wound base and wound marginal necrosis. Bedside debridement of wound base/margin completed. A significant amount of purulent drainage was expressed via compression along the inferior margin. This continues to represent a very complex soft tissue infection with some areas of improvement and some areas of worsening. Continued aggressive dressing changes and antibiotic coverage still required. Although he may ultimately require operative intervention (possibly even extensive tissue excision with complex closure/coverage by the plastic surgery service at the [facility] (or other institution)), this is not urgently needed. If appropriate antibiotic coverage and aggressive outpatient dressing changes can be arranged it is reasonable to discharge the patient (from a standpoint of this complex carbuncle) with very close outpatient follow-up. (8) MRSA (methicillin resistant Staphylococcus aureus) septicemia Status: Acute (9) Low sodium levels Status: Acute Exam Vital signs and Labs for Last 24 Hours: Temp Pulse Resp BP Pulse Ox 98.3 F 72 17 137/97 H 96 07/08/21 03:38 07/08/21 03:38 07/08/21 03:38 07/08/21 03:38 07/08/21 03:38 Laboratory Results - last 24 hr 07/07/21 05:56: Total Counted 100, Neutrophils % (Manual) 86 H, Lymphocytes % (Manual) 10, Monocytes % (Manual) 4, Platelet Estimate Normal, Hypochromasia 1+, Macrocytosis 1+ 07/07/21 20:34: Sodium 133 L, Potassium 4.3, Chloride 96 L, Carbon Dioxide 28, Anion Gap 13.3, BUN 30 H, Creatinine 1.80 H, Estimated Creat Clear 53, Estimated GFR 36 L, Est GFR ( Amer) 44 L, Glucose 131 H, Calcium 8.0 L 07/07/21 20:34: Vancomycin Trough 38.3 H 07/08/21 01:00: Vancomycin Peak 33.7 07/08/21 06:32: WBC 16.4 H, RBC 3.61 L, Hgb 11.3 L, Hct 35.8 L, MCV 99.3 H, MCH 31.2, MCHC 31.4 L, RDW 13.9, Plt Count 309, MPV 7.7, Neut % (Auto) 84.5 H, Lymph % (Auto) 10.5, [place] % (Auto) 4.4, Eos % (Auto) 0.3, Baso % (Auto) 0.3, Neut # (Auto) 13.8 H, Lymph # (Auto) 1.7, [place] # (Auto) 0.7, Eos # (Auto) 0.1, Baso # (Auto) 0.1 07/08/21 06:32: Sodium 135 L, Potassium 4.1, Chloride 99, Carbon Dioxide 29, Anion Gap 11.1, BUN 31 H, Creatinine 1.90 H, Estimated Creat Clear 50, Estimated GFR 34 L, Est GFR ( Amer) 41 L, Glucose 120 H, Calcium 8.3 L I & O for Last 24 hours: Intake & Output 07/05/21 07/06/21 07/07/21 07/08/21 11:59 11:59 11:59 11:59 Intake Total 2396 / 2396 1320 / 1320 1571 / 1571 880 / 880 Output Total 2500 / 2500 1500 / 1500 3460 / 3460 1400 / 1400 Balance -104 / -104 -180 / -180 -1889 / -1889 -520 / -520 Weight 249 lb 249 lb 2 oz 251 lb 3 oz 251 lb 3 oz Microbiology Reports for the Last 24 Hours: Microbiology 07/03/21 12:55 Finger,Right Middle - Wound - Preliminary 07/03/21 12:55 Finger,Right Middle - Wound - Final - Constitutional no acute distress - *Routine Neck Exam Comments: Posterior neck complex carbuncle with ongoing purulent drainage from follicles and from incision and drainage wounds. Improved induration/cellulitis along superior and lateral borders. Increased induration without spreading cellulitis noted along the inferior margin. Incision and drainage wounds marginal necrosis somewhat worse with particular increased necrosis along the inferior margin of the right lateral wound. Both wounds show slough and necrotic tissue with ongoing purulent drainage. Overall, the degree of necr
--- NOTE | 2021-07-08 09:02 | HMH.DCSUM ---
General - General Admission date:: 06/30/21 Discharge date: 07/08/21 HPI HPI: Patient is an 80-year-old white male admitted to our service as an unassigned patient. He is a very poor historian. Is having some confusion, ental status changes. Was brought to the emergency room earlier today for evaluation. In the course of his work-up noted to have a significant leukocytosis with a white count of 34,000. He was also found to be in A. fib with a rapid rate. A Cardizem drip was initiated, uptitrated to 15. The patient denies ischemic chest features, dyspnea, or cardiac history. Patient was brought in and a markedly unkempt and disheveled status. Clothing was dirty and unwashed. Patient has a marked cellulitis involving the right third finger. There is swelling warmth and purulent drainage. This was cultured. Peers grossly to be growing MRSA. Patient also has an area of significant redness warmth and induration in the posterior neck. This was also cultured, also grossly appears to be MRSA. The soft tissue swelling does not impinge upon the trachea or airway. Structures remain mobile and in the midline. Patient has several scattered abrasions forehead. His abdomen is rotund obese and soft. He has a nonincarcerated umbilical hernia. His extremities have some edema. Stool perfusion is adequate. The nurses noted that his bottom was excoriated for they gave him a good cleaning. Patient is poorly oriented to place and time. Hospital Course Hospital Course: Laboratory Tests 06/30/21 06/30/21 06/30/21 12:30 12:30 12:30 WBC 34.6 H* RBC 4.51 L Hgb 14.6 Hct 43.0 MCV 95.4 H MCH 32.5 H MCHC 34.0 RDW 13.9 Plt Count 375 MPV 9.2 Neut % (Auto) 89.0 H Lymph % (Auto) 4.8 L [place] % (Auto) 5.2 Eos % (Auto) 0.0 L Baso % (Auto) 0.9 Neut # (Auto) 30.8 H Lymph # (Auto) 1.7 [place] # (Auto) 1.8 H Eos # (Auto) 0.0 Baso # (Auto) 0.3 H Total Counted 100 Neutrophils % (Manual) 75 Band Neutrophils % 3.0 Lymphocytes % (Manual) 14 Monocytes % (Manual) 8 Eosinophils % (Manual) Metamyelocytes % Platelet Estimate Normal RBC Morphology Normal Hypochromasia Macrocytosis ESR PT 21.6 H INR 1.92 H Sodium 117 L Potassium 4.2 Chloride 78 L Carbon Dioxide 28 Anion Gap 15.2 H BUN 19 Creatinine 0.70 Estimated Creat Clear 104 Estimated GFR 109 Est GFR ( Amer) 131 Glucose 148 H Lactate Calcium 8.8 Total Bilirubin 1.4 H AST 40 ALT 36 Alkaline Phosphatase 225 H Troponin I 0.02 C-Reactive Protein NT-Pro-B Natriuret Pep 1260 H Total Protein 7.2 Albumin 3.6 Globulin 3.6 H Albumin/Globulin Ratio 1.0 L Procalcitonin TSH Vancomycin Peak Vancomycin Trough SARS-CoV-2 (PCR) Influenza A Untype (PCR) Influenza Type B (PCR) 06/30/21 06/30/21 06/30/21 12:30 16:40 17:00 WBC RBC Hgb Hct MCV MCH MCHC RDW Plt Count MPV Neut % (Auto) Lymph % (Auto) [place] % (Auto) Eos % (Auto) Baso % (Auto) Neut # (Auto) Lymph # (Auto) [place] # (Auto) Eos # (Auto) Baso # (Auto) Total Counted Neutrophils % (Manual) Band Neutrophils % Lymphocytes % (Manual) Monocytes % (Manual) Eosinophils % (Manual) Metamyelocytes % Platelet Estimate RBC Morphology Hypochromasia Macrocytosis ESR PT INR Sodium Potassium Chloride Carbon Dioxide Anion Gap BUN Creatinine Estimated Creat Clear Estimated GFR Est GFR ( Amer) Glucose Lactate 1.6 Calcium Total Bilirubin AST ALT Alkaline Phosphatase Troponin I 0.01 C-Reactive Protein NT-Pro-B Natriuret Pep Total Protein Albumin Globulin Albumin/Globulin Ratio Procalcitonin TSH Vancomycin Peak Vancomycin Trough
--- NOTE | 2021-07-08 11:16 | PC.NURSE ---
Called report to Suzan @ [facility]. Family to transport this am. Explained dsg changes to Suzan the nurse taking report.
--- NOTE | 2021-07-08 11:51 | PC.NURSE ---
Dry sterile gauze applied to neck wounds and R middle finger dsg changed this am prior to d/c.
[2021-07-08 11:58] LABS: Lymphocytes % 10 % (10-50); Macrocytosis 1+; Monocytes % 6 % (2-9); Neutrophils % 84 % (42-76); Platelet Estimate Normal; Total Cells Counted 100
--- NOTE | 2021-08-05 14:25 | SW/DCPLANNER ---
RECEIVED A CALL FROM [facility] THIS MORNING REGARDING THIS PATIENT.. MR BROTHPANTERA SAW DR ALDRICH A FOLLOW UP AND BJ STATED MR BROTHPANTERA DOES NOT NEED ANY HOME HEALTH DRESSING CHANGES AT THIS TIME..SHE STATED DR ALDRICH SAID HE DOESN'T NEED TO FOLLOW UP WITH HIS OFFICE ANY LONGER UNLESS SOMETHING ELSE SHOULD CAUSE HIM PROBLEMS. OWEN SAID THE NIECE IS GOING TO DRESS HIS NECK WITH A DRY CLEAN BANDAGE. BJ STATED WE DO NOT NEED TO DO ANYTHING AT THIS TIME..
== END 2021-07-08 11:45 | DRG 854 ==
LOC: ER 16:10 → 2ND 20:31
PROVIDERS: Emergency Medicine; Nurse Practitioner Family; Orthopaedic Surgery; Surgery; Urology; Admitting Provider Family Medicine; Emergency Provider Emergency Medicine; Visit Provider Family Medicine
PROC: 0J950ZZ Drainage of Left Neck Subcutaneous Tissue and Fascia, Open Approach (ICD-10-PCS; principal; 2021-07-01 11:30)
PROC: 0JBJ0ZZ Excision of Right Hand Subcutaneous Tissue and Fascia, Open Approach (ICD-10-PCS; principal; 2021-07-03 11:45)
DX: A41.02 Sepsis due to Methicillin resistant Staphylococcus aureus (principal); L03.221 Cellulitis of neck; L02.511 Cutaneous abscess of right hand; I96 Gangrene, not elsewhere classified; R65.20 Severe sepsis without septic shock; I48.91 Unspecified atrial fibrillation; I10 Essential (primary) hypertension; F17.210 Nicotine dependence, cigarettes, uncomplicated; Z79.01 Long term (current) use of anticoagulants; L03.011 Cellulitis of right finger; Z20.822 Contact with and (suspected) exposure to COVID-19; L02.13 Carbuncle of neck; A49.02 Methicillin resistant Staphylococcus aureus infection, unspecified site; L98.499 Non-pressure chronic ulcer of skin of other sites with unspecified severity
CPT/HCPCS: 21501; 17999; 11043; 36415; 70450; 70491; 71045; 73130; 80048; 80053; 80202; 83605; 83880; 84145; 84443; 84484; 85007; 85025; 85610; 85651; 86140; 87040; 87070; 87075; 87077; 87186; 87205; 92610; 93005; 93306; 96365; 96375; 97116; 97161; 97162; 97165; 97530; 99284; C9803; J2543; J3370; Q9957; Q9967; U0003; U0005

== ENCOUNTER 2021-08-04 08:44 | Emergency (ER) | payer MEDICARE, SELFPAY ==
[2021-08-04 08:55] VITALS: BP 149/99; PULSE 64; O2SAT 97
[2021-08-04 08:58] VITALS: BP 149/99; PULSE 73; RESP 19; TEMP 36.4; O2SAT 98; BMI 33.9
--- NOTE | 2021-08-04 09:06 | HMH.EDGENADL ---
ED Disposition Clinical Impression: Healing wound Disposition: Home, Self-Care Condition on Discharge: Good Additional Instructions: Home health care for dressing changes. Follow-up with Dr. Lima tomorrow as scheduled. Referrals: Gustavo Suresh JR, MD [Primary Care Provider] - Vinnie Infante MD [Staff Physician] - 08/05/21 (Tomorrow as scheduled) - Critical Care Critical Care Time: No Attestation: On 08/04/21, the high probability of a clinically significant, sudden or life threatening deterioration of the following system(s) required my full and direct attention, intervention and personal management. The time I documented below is in addition to time spent performing reported procedures but includes the following listed in this critical care notation. Medical Decision Making - Medical Records Medical records reviewed: Yes: I reviewed the patient's medical records. MR Zimmerman: Reviewed discharge summary from admission June 30-2020 at this facility. He had sepsis, infection of his right middle finger and a massive carbuncle on the back of his neck. He had surgery on his right middle finger and neck. Surgery on his right middle finger by both Dr. Infante and Dr. Claros. Surgery on his neck by Dr. Claros. Cultures positive for MRSA from both sites. He has an appointment to follow-up with Dr. Infante tomorrow. - Sumanth Inquiry Pt receiving controlled substance: No Vital Signs: 08/04/21 08:55 08/04/21 08:58 Temperature 97.5 F L Temperature Source Oral Pulse Rate 64 Pulse Rate [Right Radial] 73 Respiratory Rate 19 Blood Pressure 149/99 H Blood Pressure [Right Arm] 149/99 H Blood Pressure Mean 117 Blood Pressure Mean [Right Arm] 115 Blood Pressure Source [Right Arm] Automatic Cuff Blood Pressure Position [Right Arm] Sitting 02 Sat by Pulse Oximetry 97 98 Oxygen Delivery Method Room Air Orders (Tests/Meds): ORDERS Category Date Time Status Consult to Case Management [CONS] Routine Cons 08/04/21 09:15 Active General Adult HPI - General Chief complaint: Wound/Laceration Stated complaint: bandage change on back of head Time Seen by Provider: 08/04/21 09:06 Mode of Arrival: Ambulatory Limitations: No Limitations Description of Symptoms (Recalled from ER Triage Doc. by RN): Pt stated that he needs a dressing change done to the back of his neck. He called EMS to change his bandage since its suppose to be change BID. EMS told him to come to ER to get the next dressing change done. - History of Present Illness HPI narrative: Requested dressing change to a wound on the back of his neck. He says that he had a fall in May that caused the wound, was hospitalized here and then eventually transferred to rehab where he spent 8 weeks. He says that he was released on 07/30/2021. He has a bandage on the back of his neck which they told him to have changed twice a day. He says since he got home he has been negotiating with the insurance company to try to a arrange somebody to change the dressing but has been unsuccessful. Therefore, he called 911 last night to have his dressing changed. He says that EMS personnel told him to come today to the hospital to have it changed. No fever. No purulent drainage. He lives with a brother but says his brother is not right mentally and refuses to change the bandage. He has nobody else that can change a form and cannot change it himself because it is on the back of his neck and he cannot see it. - Related Data Home Medications Medication Instructions Recorded Confirmed Amlodipine Besylate [Amlodipine 10 mg PO DAILY 10/04/20 07/01/21 10mg Tab] Famotidine [Acid Controller] 20 mg PO DAILY 10/04/20 07/01/21 Metoprolol Tartrate 25 mg PO BID 10/04/20 07/01/21 Potassium Chloride 20 meq PO DAILY 10/04/20 07/01/21 allopurinoL [Allopurinol 300mg 300 mg PO DAILY 10/04/20 07/01/21 tablet] hydroCHLOROthiazide [HCTZ 25mg 25 mg PO DAILY 10/04/20 0
--- NOTE | 2021-08-04 09:20 | PC.NURSE ---
Spoke with CM about needing to get home care for wound dressing change for pt. CM will be to see pt
--- NOTE | 2021-08-04 09:24 | PC.NURSE ---
kev from care management at speaking with pt at this time
--- NOTE | 2021-08-04 09:26 | PC.NURSE ---
Dressing changed, non adhesive bandage secured with 4x4
--- NOTE | 2021-08-04 09:51 | SW/DCPLANNER ---
I was contacted to speak with this patient in the ED this morning. Patient was discharged from [facility] on 07/30/21 and discharged home and directed to do twice a day dressing changes. Dr Erazo stated that wound looks to be improving and may not require twice a day dressing changes. Patient does have a follow up with Dr Infante tomorrow morning. I informed patients brother (Jarvis) of the appointment and the importance of returning to appointment. I also contacted Dr Infante office and spoke with (Sydni): I informed her that this patient has a follow up tomorrow morning and that we will need to be informed of Dr Infante recommendations for dressing changes after appointment and CM will set up with home health services. I have informed patient and his family regarding discharge plans. Patient did have dressing changed today in ED and will return to Dr Infante office tomorrow. CM will follow up with Dr Infante evaluates this patient.
[2021-08-04 09:55] VITALS: BP 102/62; PULSE 98; RESP 18; TEMP 36.4; O2SAT 98
== END 2021-08-04 10:00 | disposition home or self-care (01) ==
PROVIDERS: Emergency Provider Emergency Medicine; PCP Family Medicine
DX: L03.221 Cellulitis of neck (principal)
CPT/HCPCS: 99282

== ENCOUNTER → 2022-08-17 12:54 | Outpatient (CLI) | payer MEDICARE, SELFPAY ==
[2022-08-17 13:14] LABS: MANUAL DIFFERENTIAL MANUAL DIFFERENTIAL (MANUAL DIFF); Microscopic, Urine URINE MICROSCOPIC (MICROSCOPIC)
[2022-08-17 13:56] LABS: Appearance,Urine CLOUDY (Clear); Bilirubin,Urine Negative (Negative); Blood, Urine TRACE-I (Negative); Color,Urine YELLOW (Yellow); Glucose,Urine (UA) Negative (Negative); Ketones,Urine Negative (Negative); Leukocyte Esterase,Urine 3+ (Negative); Nitrate,Urine Negative (Negative); Protein,Urine Negative (Negative)
[2022-08-17 14:03] LABS: INR 1.51 (0.9-1.1); Prothrombin Time 15.9 seconds (10.1-12.5)
[2022-08-17 14:06] LABS: Basophils # 0.1 K/mm3 (0-0.2); Basophils % 0.8 % (0.1-2.0); Eosinophils # 0.1 K/mm3 (0.0-0.4); Eosinophils % 0.8 % (0.1-12.0); Hematocrit 42.2 % (42.0-52.0); Hemoglobin 13.6 g/dL (14.1-18.0); Lymphocytes # 3.3 K/mm3 (0.7-4.5); Lymphocytes % 31.9 % (10-50); Mean Corpuscular HGB Conc 32.2 g/dL (31.8-35.4); Mean Corpuscular Hemoglobin 32.1 pg (27.0-31.2); Mean Corpuscular Volume 99.8 fl (80-94); Mean Platelet Volume 8.9 fl (7.4-10.4); Monocytes # 0.6 K/mm3 (0.1-1.0); Monocytes % 5.9 % (1.7-9.3); Neutrophils # 6.2 K/mm3 (1.8-7.8); Neutrophils % 60.6 % (37.0-80.0); Platelet Count 258 K/mm3 (142-424); Red Blood Count 4.23 M/mm3 (4.60-6.20); Red Cell Distribution Width 14.8 % (11.5-17.5); White Blood Count 10.3 K/mm3 (4.8-10.8)
[2022-08-17 14:21] LABS: Bacteria,Urine 4+ /lpf; RBC,Urine Occasional #/hpf (0-3); Squamous Epithelial Cell,Urine Occasional #/hpf (0-5); WBC,Urine 20-50 #/hpf (0-3)
[2022-08-17 14:26] LABS: Anisocytosis 1+; Lymphocytes % 35 % (10-50); Macrocytosis 1+; Monocytes % 4 % (2-9); Neutrophils % 61 % (42-76); Ovalocytes 1+; Platelet Estimate Normal; Total Cells Counted 100
[2022-08-17 14:31] LABS: Alanine Aminotransferase 16 U/L (12-78); Albumin Level 4.3 g/dl (3.5-5.0); Albumin/Globulin Ratio 1.3 (1.1-1.8); Alkaline Phosphatase 152 U/L (38-126); Aspartate Amino Transferase 28 U/L (17-59); Blood Urea Nitrogen 14 mg/dl (9-20); Calcium 9.7 mg/dl (8.4-10.2); Carbon Dioxide 26 mmol/L (22.0-30.0); Chloride 99 mmol/L (98-107); Chol/HDL Ratio 6.9 (1-3.5); Cholesterol 213 mg/dl (140-200); Estimated Glomerular Filt Rate 72 ml/min (>60); GFR (African American) 87 ML/MIN (>60); Globulin 3.4 g/dL (1.3-3.2); Glucose 106 mg/dl (74-100); HDL Cholesterol 31 mg/dl (40-60); Sodium 141 mmol/L (136-145); Total Protein,Serum 7.7 g/dl (6.3-8.2); Triglycerides 169 mg/dl (30-150); Uric Acid 5.4 mg/dl (3.5-8.5); VLDL Cholesterol 34 mg/dL (0-40)
[2022-08-17 14:47] LABS: Direct LDL Cholesterol 133.94 mg/dL (100-129); Total Iron Binding Capacity 313 ug/dL (261-462)
[2022-08-17 15:01] LABS: Prostate Specific Ag Screen 1.5 ng/ml (0.0-4.0); Thyroid Stimulating Hormone 3.19 uIU/mL (0.465-4.68)
[2022-08-17 15:34] LABS: Iron 159 ug/dL (49-181)
== END ==
PROVIDERS: PCP Family Medicine; Visit Provider Family Medicine
DX: I48.91 Unspecified atrial fibrillation (principal); K21.9 Gastro-esophageal reflux disease without esophagitis; M10.9 Gout, unspecified; Z79.01 Long term (current) use of anticoagulants; I10 Essential (primary) hypertension; E87.1 Hypo-osmolality and hyponatremia; Z12.5 Encounter for screening for malignant neoplasm of prostate; B96.89 Other specified bacterial agents as the cause of diseases classified elsewhere; B95.2 Enterococcus as the cause of diseases classified elsewhere; R82.90 Unspecified abnormal findings in urine
CPT/HCPCS: 36415; 80053; 80061; 81001; 83540; 83550; 84443; 84550; 85007; 85014; 85018; 85048; 85049; 85610; 87086; 87088; 87186; G0103

== ENCOUNTER → 2022-09-15 12:45 | Outpatient (CLI) | payer MEDICARE, SELFPAY ==
[2022-09-15 13:52] LABS: INR 2.07 (0.9-1.1); Prothrombin Time 21.5 seconds (10.1-12.5)
== END ==
PROVIDERS: PCP Family Medicine; Visit Provider Family Medicine
DX: Z79.01 Long term (current) use of anticoagulants (principal); Z51.81 Encounter for therapeutic drug level monitoring
CPT/HCPCS: 36415; 85610

== ENCOUNTER 2022-10-13 12:55 | Outpatient (CLI) | payer MEDICARE, SELFPAY ==
[2022-10-13 15:44] LABS: PHA INR Fingerstick 1.6 (0.9-1.1)
== END 2022-10-13 16:13 ==
PROVIDERS: PCP Family Medicine; Visit Provider Hospitalist
DX: Z51.81 Encounter for therapeutic drug level monitoring (principal); Z79.01 Long term (current) use of anticoagulants
CPT/HCPCS: 85610; 99211; G0463

== ENCOUNTER 2022-11-09 09:31 | Outpatient (CLI) | payer MEDICARE, SELFPAY ==
[2022-11-09 12:41] LABS: PHA INR Fingerstick 1.8 (0.9-1.1)
== END 2022-11-09 12:58 ==
LOC: ACC 09:32
PROVIDERS: PCP Family Medicine; Visit Provider Hospitalist
DX: Z51.81 Encounter for therapeutic drug level monitoring (principal); Z79.01 Long term (current) use of anticoagulants; I48.20 Chronic atrial fibrillation, unspecified
CPT/HCPCS: 85610; 99211; G0463

== ENCOUNTER 2022-12-06 13:06 | Outpatient (CLI) | payer MEDICARE, SELFPAY ==
[2022-12-06 15:02] LABS: PHA INR Fingerstick 2.3 (0.9-1.1)
== END 2022-12-06 15:04 ==
PROVIDERS: PCP Family Medicine; Visit Provider Hospitalist
DX: Z51.81 Encounter for therapeutic drug level monitoring (principal); Z79.01 Long term (current) use of anticoagulants; I48.20 Chronic atrial fibrillation, unspecified
CPT/HCPCS: 85610; 99211; G0463

== ENCOUNTER 2023-01-03 12:55 | Outpatient (CLI) | payer MEDICARE, SELFPAY | END 2023-01-03 14:05 | LOC: ACC 12:56 | PROVIDERS: PCP Family Medicine; Visit Provider Internal Medicine Cardiovascular Disease | DX: Z51.81 Encounter for therapeutic drug level monitoring (principal); Z79.01 Long term (current) use of anticoagulants; I48.20 Chronic atrial fibrillation, unspecified | CPT/HCPCS: 85610; 99211; G0463 ==

== ENCOUNTER 2023-01-31 11:13 | Outpatient (CLI) | payer MEDICARE, SELFPAY ==
[2023-01-31 13:45] LABS: PHA INR Fingerstick 2.6 (0.9-1.1)
== END 2023-01-31 13:47 ==
PROVIDERS: PCP Nurse Practitioner Family; Visit Provider Internal Medicine Cardiovascular Disease
DX: Z51.81 Encounter for therapeutic drug level monitoring (principal); Z79.01 Long term (current) use of anticoagulants; I48.20 Chronic atrial fibrillation, unspecified
CPT/HCPCS: 85610; 99211; G0463

== ENCOUNTER 2023-02-28 10:44 | Outpatient (CLI) | payer MEDICARE, SELFPAY ==
[2023-02-28 11:59] LABS: PHA INR Fingerstick 2.3 (0.9-1.1)
== END 2023-02-28 12:01 ==
LOC: ACC 10:47
PROVIDERS: PCP Nurse Practitioner Family; Visit Provider Internal Medicine Cardiovascular Disease
DX: Z51.81 Encounter for therapeutic drug level monitoring (principal); Z79.01 Long term (current) use of anticoagulants; I48.20 Chronic atrial fibrillation, unspecified
CPT/HCPCS: 85610; 99211; G0463

== ENCOUNTER 2023-03-28 10:25 | Outpatient (CLI) | payer MEDICARE, SELFPAY ==
[2023-03-28 11:47] LABS: PHA INR Fingerstick 1.4 (0.9-1.1)
== END 2023-03-28 11:49 ==
LOC: ACC 10:27
PROVIDERS: PCP Nurse Practitioner Family; Visit Provider Hospitalist
DX: Z51.81 Encounter for therapeutic drug level monitoring (principal); Z79.01 Long term (current) use of anticoagulants; I48.20 Chronic atrial fibrillation, unspecified
CPT/HCPCS: 85610; 99211; G0463

== ENCOUNTER 2023-04-15 19:21 | Observation (INO) | payer MEDICARE, SELFPAY ==
[2023-04-15] VITALS (8 sets, daily range): BP systolic 124–173; BP diastolic 72–107; PULSE 74–120; RESP 16–19; TEMP 36.4–36.8; O2SAT 94–99; BMI 34.9; BMI 41.8; BMI 39.8
--- NOTE | 2023-04-15 19:48 | EXP.UTC ---
Discharge Plan Disposition Patient Disposition: Still a Patient Condition: Fair Prescriptions Prescriptions: No Action amlodipine 10 mg tablet 10 mg PO DAILY Qty: 90 1RF ferrous sulfate 325 mg (65 mg iron) tablet 325 mg PO DAILY Qty: 90 1RF lisinopril 40 mg tablet 40 mg PO DAILY Qty: 90 1RF metoprolol tartrate 25 mg tablet 25 mg PO BID warfarin 5 mg tablet 5 mg PO DAILY Qty: 30 1RF Rx Instructions: take with 1mg tab for a total of 6mg daily warfarin 1 mg tablet 1 mg PO DAILY Qty: 30 1RF Rx Instructions: take with 5mg tab for a total of 6mg daily famotidine 20 mg tablet 20 mg PO DAILY Qty: 90 1RF allopurinol 300 mg tablet 300 mg PO DAILY Qty: 90 1RF potassium chloride 20 mEq tablet extended release See Rx Instructions .ROUTE .COMPLEX Qty: 90 0RF Dose Instruction: TAKE 1 TABLET BY MOUTH ONCE DAILY FOR SUPPLEMENT Rx Instructions: TAKE 1 TABLET BY MOUTH ONCE DAILY FOR SUPPLEMENT hydrochlorothiazide 25 mg tablet See Rx Instructions .ROUTE .COMPLEX Qty: 90 0RF Dose Instruction: TAKE 1 TABLET BY MOUTH ONCE DAILY FOR EDEMA Rx Instructions: TAKE 1 TABLET BY MOUTH ONCE DAILY FOR EDEMA Referrals Follow up/Referrals: Khadijah Diaz APRN [Primary Care Provider] - See instructions [place]orah [place] [facility] [place] General Stated complaint: nausea Mode of Arrival: Ambulatory Source of Information: Patient Limitations: No Limitations Time Seen by Provider: 04/15/23 19:48 Description of Symptoms (Recalled from Triage Doc. by RN): PATIENT C/O LOWER ABDOMINAL PAIN, NAUSEA AND HICCUPS THAT STARTED THIS MORNING AFTER EATING SARDINES YESTERDAY HEENT Symptoms (Recalled from RN notes): No Resp Symptoms (Recalled from RN notes): No Skin Symptoms (Recalled from RN notes): No MS Symptoms (Recalled from RN notes): No Functional Status (Recalled from RN notes): WNL History of Present Illness Provider Complaint: Patient states that he eat some sardines yesterday and afterwards he had diarrhea x 1 and it went away States that this morning he started having belly pain and hiccups on and off States that he had a little nausea but no vomiting but his stomach has bothered him all day and feels tight States that this evening his stomach was still hurting bad so he got someone to bring him in Related Data Home Medications Medication Instructions Recorded Confirmed metoprolol tartrate 25 mg tablet 25 mg PO BID 01/31/23 02/28/23 Previous Rx's Medication Instructions Recorded amlodipine 10 mg tablet 10 mg PO DAILY Hypertension #90 08/17/22 tabs ferrous sulfate 325 mg (65 mg 325 mg PO DAILY #90 tabs 08/17/22 iron) tablet lisinopril 40 mg tablet 40 mg PO DAILY Hypertension #90 08/17/22 tabs warfarin 1 mg tablet 1 mg PO DAILY #30 tabs 02/03/23 warfarin 5 mg tablet 5 mg PO DAILY #30 tabs 02/03/23 allopurinol 300 mg tablet 300 mg PO DAILY gout #90 tabs 02/21/23 famotidine 20 mg tablet 20 mg PO DAILY GERD #90 tabs 02/21/23 potassium chloride 20 mEq See Rx Instructions .Route 03/07/23 tablet,extended release .COMPLEX #90 tabs hydrochlorothiazide 25 mg tablet See Rx Instructions .Route 03/22/23 .COMPLEX #90 tabs Allergies Allergy/AdvReac Type Severity Reaction Status Date / Time No Known Allergies Allergy Verified 02/28/23 10:11 Worker's Comp Is this a Worker's Comp case?: No [facility] Disclaimer: The information contained in this section may have been updated after the patient was seen, as this information can be updated by other users. Medical History Acute back pain with sciatica Atrial fibrillation Atrial fibrillation with rapid ventricular response Back pain of lumbar region with sciatica Carbuncle, neck Cellulitis and abscess of finger, unspecified Cellulitis, neck Healing wound Hypertension Leukocytosis Low sodium levels MRSA (methicillin resis
--- NOTE | 2023-04-15 19:54 | PC.NURSE ---
Addendum entered by Salud Lazo RN 04/15/23 19:58: PATIENT TRANSPORTED VIA [facility] Original Note: PATIENT SENT TO ER PER Cassandra DURAND APRN FOR FURTHER EVALUATION. REPORT GIVEN TO Masoud NELSON RN BY Cassandra DURAND APRN. PATIENT TRANSPORTED TO ER VIA PERSONAL WHEELCHAIR
--- NOTE | 2023-04-15 20:07 | CT_ITS ---
PROCEDURE INFORMATION: Exam: CT Abdomen And Pelvis With Contrast Exam date and time: 04/15/2023 8:38 PM Age: 82 years old Clinical indication: Abdominal pain; Additional info: Abd pain n/v/d TECHNIQUE: Imaging protocol: Computed tomography of the abdomen and pelvis with contrast. Radiation optimization: All CT scans at this facility use at least one of these dose optimization techniques: automated exposure control; mA and/or kV adjustment per patient size (includes targeted exams where dose is matched to clinical indication); or iterative reconstruction. Contrast material: ISOVUE; Contrast volume: 75 ml; Contrast route: IV; REPORTING DATA: Count of CT and Cardiac NM exams in prior 12 months: This patient has received 0 known CTs and 0 known cardiac nuclear medicine studies in the 12 months prior to the current study. COMPARISON: CR XR HIP LT 2-3V W/PELVIS 10/04/2020 12:54 PM FINDINGS: Heart: Cardiomegaly. Liver: Normal. No mass. Gallbladder and bile ducts: No calcified stones. No ductal dilation. Pancreas: Fatty atrophy of the pancreas. Spleen: There are multiple splenic calcifications likely on the basis of prior granulomatous exposure. Adrenal glands: No mass. Kidneys and ureters: Somewhat atrophic appearing kidneys. No hydronephrosis. Stomach and bowel: Dilated gas and fluid-filled loops of small bowel within the left abdomen and pelvis with distal decompression. Appendix: No evidence of appendicitis. Intraperitoneal space: No significant fluid collection. No free air. Vasculature: Calcified aortic atherosclerosis. No aneurysm. Lymph nodes: No enlarged lymph nodes. Urinary bladder: No acute abnormality. Reproductive: No acute abnormality. Bones/joints: Degenerative changes of the spine. Mild scoliosis. No fracture. Soft tissues: No soft tissue swelling. IMPRESSION: Dilated gas and fluid-filled loops of small bowel within the left abdomen and pelvis with distal decompression compatible with small bowel obstruction.
[2023-04-15 20:16] LABS: Basophils % 0.2 % (0.1-2.0); Eosinophils # 0.1 K/mm3 (0.0-0.4); Eosinophils % 0.4 % (0.1-12.0); Hematocrit 46.7 % (42.0-52.0); Hemoglobin 15.1 g/dL (14.1-18.0); Lymphocytes % 7.4 % (10-50); Mean Corpuscular HGB Conc 32.4 g/dL (31.8-35.4); Mean Corpuscular Hemoglobin 31.1 pg (27.0-31.2); Mean Corpuscular Volume 96.1 fl (80-94); Mean Platelet Volume 8.7 fl (7.4-10.4); Monocytes # 0.3 K/mm3 (0.1-1.0); Monocytes % 2.2 % (1.7-9.3); Neutrophils # 12.6 K/mm3 (1.8-7.8); Neutrophils % 89.8 % (37.0-80.0); Platelet Count 224 K/mm3 (142-424); Red Blood Count 4.86 M/mm3 (4.60-6.20); Red Cell Distribution Width 14.3 % (11.5-17.5)
[2023-04-15 20:21] LABS: Chloride 94 mmol/L (98-107); MANUAL DIFFERENTIAL MANUAL DIFFERENTIAL (MANUAL DIFF); Sodium 134 mmol/L (136-145)
--- NOTE | 2023-04-15 20:21 | HMH.EDABDPAI ---
Discharge Plan Disposition Patient Disposition: Admitted Condition: Fair Prescriptions Prescriptions: No Action amlodipine 10 mg tablet 10 mg PO DAILY Qty: 90 1RF lisinopril 40 mg tablet 40 mg PO DAILY Qty: 90 1RF metoprolol tartrate 25 mg tablet 25 mg PO BID famotidine 20 mg tablet 20 mg PO DAILY Qty: 90 1RF allopurinol 300 mg tablet 300 mg PO DAILY Qty: 90 1RF ferrous sulfate 325 mg (65 mg iron) tablet 325 mg PO DAILY warfarin 5 mg tablet 5 mg PO DAILY Rx Instructions: take with 1mg tab for a total of 6mg daily hydrochlorothiazide 25 mg tablet See Rx Instructions .ROUTE .COMPLEX Rx Instructions: TAKE 1 TABLET BY MOUTH ONCE DAILY FOR EDEMA warfarin 1 mg tablet 1 mg PO DAILY Rx Instructions: take with 5mg tab for a total of 6mg daily potassium chloride 20 mEq tablet extended release See Rx Instructions .ROUTE .COMPLEX Rx Instructions: TAKE 1 TABLET BY MOUTH ONCE DAILY FOR SUPPLEMENT Referrals Follow up/Referrals: Khadijah Diaz APRN [Primary Care Provider] - See instructions Clinical Impressions Clinical Impression: Small bowel obstruction Instructions Patient Instructions: DI for Acute Abdominal Pain Discharge ED Provider: Kevin (ED)Olvin Abdominal Pain HPI General Chief Complaint: Abdominal Pain Stated Complaint: nausea Time Seen by Provider: 04/15/23 19:48 Mode of Arrival: Ambulatory Source of Information: Patient Limitations: No Limitations Description of Symptoms (Recalled from ER Triage Doc. by RN): PATIENT C/O LOWER ABDOMINAL PAIN, NAUSEA AND HICCUPS THAT STARTED THIS MORNING AFTER EATING SARDINES YESTERDAY History of Present Illness HPI narrative: abd pain with nausea today w/o fever or vomiting MD complaint: abdominal pain Onset (ago): hour(s) Consistency: intermittent Location: diffuse Severity: moderate Associated symptoms: denies other symptoms Related Data Home Medications Medication Instructions Recorded Confirmed metoprolol tartrate 25 mg tablet 25 mg PO BID High blood pressure 01/31/23 04/15/23 ferrous sulfate 325 mg (65 mg 325 mg PO DAILY Supplement 04/15/23 04/15/23 iron) tablet hydrochlorothiazide 25 mg tablet See Rx Instructions .Route 04/15/23 04/15/23 .COMPLEX High blood pressure potassium chloride 20 mEq See Rx Instructions .Route 04/15/23 04/15/23 tablet,extended release .COMPLEX Supplement warfarin 1 mg tablet 1 mg PO DAILY afib 04/15/23 04/15/23 warfarin 5 mg tablet 5 mg PO DAILY afib 04/15/23 04/15/23 Previous Rx's Medication Instructions Recorded amlodipine 10 mg tablet 10 mg PO DAILY Hypertension #90 08/17/22 tabs lisinopril 40 mg tablet 40 mg PO DAILY Hypertension #90 08/17/22 tabs allopurinol 300 mg tablet 300 mg PO DAILY gout #90 tabs 02/21/23 famotidine 20 mg tablet 20 mg PO DAILY GERD #90 tabs 02/21/23 Allergies Allergy/AdvReac Type Severity Reaction Status Date / Time No Known Allergies Allergy Verified 02/28/23 10:11 [facility] Disclaimer: The information contained in this section may have been updated after the patient was seen, as this information can be updated by other users. Medical History Acute back pain with sciatica Atrial fibrillation Atrial fibrillation with rapid ventricular response Back pain of lumbar region with sciatica Carbuncle, neck Cellulitis and abscess of finger, unspecified Cellulitis, neck Healing wound Hypertension Leukocytosis Low sodium levels MRSA (methicillin resistant Staphylococcus aureus) septicemia Sepsis Strain of lumbar region Surgical History History of hernia repair Hx of transurethral resection of prostate Social History Smoking Status: Former smoker alcohol intake: never substance use type: denies use
[2023-04-15 20:23] LABS: Amylase 72 U/L (30-110)
[2023-04-15 20:24] LABS: Alanine Aminotransferase 31 U/L (12-78); Albumin Level 4.7 g/dl (3.5-5.0); Albumin/Globulin Ratio 1.1 (1.1-1.8); Alkaline Phosphatase 134 U/L (38-126); Aspartate Amino Transferase 38 U/L (17-59); Bilirubin,Total 0.9 mg/dl (0.2-1.3); Blood Urea Nitrogen 10 mg/dl (9-20); Calcium 9.2 mg/dl (8.4-10.2); Carbon Dioxide 25 mmol/L (22.0-30.0); Creatinine Clearance Estimated 50 mL/min (50-200); Estimated Glomerular Filt Rate 108 ml/min (>60); GFR (African American) 131 ML/MIN (>60); Globulin 4.4 g/dL (1.3-3.2); Glucose 155 mg/dl (74-100); Lipase 40 U/L (23-300); Total Protein,Serum 9.1 g/dl (6.3-8.2)
[2023-04-15 20:26] LABS: INR 1.02 (0.9-1.1)
--- NOTE | 2023-04-15 20:31 | PC.NURSE ---
patient gone to RAD at this time.
[2023-04-15 20:38] LABS: Lymphocytes % 9 % (10-50); Monocytes % 1 % (2-9); Neutrophils % 90 % (42-76); Platelet Estimate Slight Decrease; RBC Morphology Normal; Total Cells Counted 100
--- NOTE | 2023-04-15 20:43 | PC.NURSE ---
patient back in room at this time.
[2023-04-15 20:48] LABS: Procalcitonin 0.054 ng/mL (0.0-2.0)
[2023-04-15 21:07] LABS: Erythrocyte Sedimentation Rate 22 mm/hr (0-20)
--- NOTE | 2023-04-15 21:14 | PC.NURSE ---
SPEAKING WITH RELLAD
--- NOTE | 2023-04-15 21:16 | PC.NURSE ---
vijay Infante, on-call Gen surgery
--- NOTE | 2023-04-15 21:16 | PC.NURSE ---
Dr. Brown s/w Dr. Infante
--- NOTE | 2023-04-15 21:18 | PC.NURSE ---
Dr. Brown s/w hospitalist, Dr. Hooper, for admission
--- NOTE | 2023-04-15 21:19 | PC.NURSE ---
CALLED HOUSE FOR ADMISSION
[2023-04-15 21:21] LABS: Coronavirus 19, PCR Not Detected (NotDetected); Influenza A, PCR Not Detected (NotDetected); Influenza B, PCR Not Detected (NotDetected)
--- NOTE | 2023-04-15 21:21 | PC.NURSE ---
PATIENT ADMITTED TO 212 TO SERVICE OF HOSPITALIST WITH DX OF SBO.
--- NOTE | 2023-04-15 22:12 | PC.NURSE ---
2nd fl staff at bedside to transfer to med/surg
--- NOTE | 2023-04-15 22:18 | EXP.HP ---
History of Present Illness *Admission Date: 04/15/23 *Reason for visit:: SBO *History of present illness: The patient is a 82 year old male who presented to the ED for c/o abdominal pain. PMHX of atrial fibrillation, HTN, anemia, and GERD. States that abdominal pain started one day prior. The pain is associated with hiccups. Denied nausea upon exam but stated that he had nausea earlier in the day. Denies fever or vomiting. Work up in the ED revealed Small bowel obstruction. Dr. Brown spoke with hosptialist team for medical admission. The patient will be admitted on bowel rest with a surgical consult placed. [facility] Disclaimer: The information contained in this section may have been updated after the patient was seen, as this information can be updated by other users. Medical History Acute back pain with sciatica Atrial fibrillation Atrial fibrillation with rapid ventricular response Back pain of lumbar region with sciatica Carbuncle, neck Cellulitis and abscess of finger, unspecified Cellulitis, neck Healing wound Hypertension Leukocytosis Low sodium levels MRSA (methicillin resistant Staphylococcus aureus) septicemia Sepsis Strain of lumbar region Surgical History History of hernia repair Hx of transurethral resection of prostate Family History (Updated 04/15/23 @ 22:54 by Jelly Lyons RN) Other No significant family history Social History (Updated 04/15/23 @ 22:54 by Jelly Lyons RN) Smoking Status: Former smoker alcohol intake: never substance use type: denies use current occupational status: disabled Travel in the last 8 weeks: None household members: family housing: house Review of Systems Review of Systems Review of systems:: pertinent systems reviewed and negative unless documented below Constitutional Constitutional: Reports system reviewed and no additional complaints, except as documented Eyes Eyes: Reports requires corrective lenses ENT Ears, Nose, Mouth, and Throat: Reports system reviewed and no additional complaints, except as documented *Cardiovascular Cardiovascular: Reports system reviewed and no additional complaints, except as documented and Denies rapid heart rate *Respiratory Respiratory: Reports system reviewed and no additional complaints, except as documented *Gastrointestinal Gastrointestinal: Reports belching Comments: hiccups *Genitourinary Genitourinary: Reports system reviewed and no additional complaints, except as documented *Musculoskeletal Musculoskeletal: Reports system reviewed and no additional complaints, except as documented Integumentary/Breasts Skin/Breast: Reports system reviewed and no additional complaints, except as documented *Neurologic Neurologic: Reports system reviewed and no additional complaints, except as documented Meds Home Medications and Allergies Home Medications Medication Instructions Recorded Confirmed Type amlodipine 10 mg tablet 10 mg PO DAILY Hypertension #90 08/17/22 04/15/23 Rx tabs lisinopril 40 mg tablet 40 mg PO DAILY Hypertension #90 08/17/22 04/15/23 Rx tabs metoprolol tartrate 25 mg tablet 25 mg PO BID High blood pressure 01/31/23 04/15/23 History allopurinol 300 mg tablet 300 mg PO DAILY gout #90 tabs 02/21/23 04/15/23 Rx famotidine 20 mg tablet 20 mg PO DAILY GERD #90 tabs 02/21/23 04/15/23 Rx ferrous sulfate 325 mg (65 mg 325 mg PO DAILY Supplement 04/15/23 04/15/23 History iron) tablet hydrochlorothiazide 25 mg tablet 25 mg PO DAILY Edema 04/15/23 04/16/23 History potassium chloride 20 mEq 20 meq PO DAILY Supplement 04/15/23 04/16/23 History tablet,extended release warfarin 1 mg tablet 1 mg PO DAILY afib 04/15/23 04/15/23 History warfarin 5 mg tablet 5 mg PO DAILY afib 04/15/23 04/15/23 History New Prescriptions to Start Prescriptions: Allergies Allergy/AdvReac Type Se
--- NOTE | 2023-04-15 22:26 | PC.NURSE ---
Pt arrived to the floor via wheelchair @[id number]
[2023-04-16 04:00] VITALS: BP 148/82; PULSE 106; RESP 20; TEMP 37; O2SAT 95; BMI 39.8
[2023-04-16 07:29] LABS: Basophils % 0.2 % (0.1-2.0); Eosinophils % 0.1 % (0.1-12.0); Hematocrit 40.5 % (42.0-52.0); Hemoglobin 13.7 g/dL (14.1-18.0); Lymphocytes # 1.8 K/mm3 (0.7-4.5); Lymphocytes % 12.4 % (10-50); Mean Corpuscular HGB Conc 33.8 g/dL (31.8-35.4); Mean Corpuscular Hemoglobin 31.9 pg (27.0-31.2); Mean Corpuscular Volume 94.4 fl (80-94); Mean Platelet Volume 8.8 fl (7.4-10.4); Monocytes # 0.9 K/mm3 (0.1-1.0); Monocytes % 5.9 % (1.7-9.3); Neutrophils # 12.1 K/mm3 (1.8-7.8); Neutrophils % 81.4 % (37.0-80.0); Platelet Count 200 K/mm3 (142-424); Red Blood Count 4.29 M/mm3 (4.60-6.20); Red Cell Distribution Width 14.4 % (11.5-17.5); White Blood Count 14.8 K/mm3 (4.8-10.8)
[2023-04-16 07:36] VITALS: BP 140/72; PULSE 108; RESP 20; TEMP 36.5; O2SAT 92
[2023-04-16 07:36] LABS: Chloride 98 mmol/L (98-107); INR 1.06 (0.9-1.1); Potassium 3.2 mmoL/L (3.5-5.1); Prothrombin Time 11.4 seconds (10.1-12.5); Sodium 134 mmol/L (136-145)
[2023-04-16 07:39] LABS: Anion Gap 14.2 mEq/L (5-15); Blood Urea Nitrogen 13 mg/dl (9-20); Calcium 8.4 mg/dl (8.4-10.2); Carbon Dioxide 25 mmol/L (22.0-30.0); Creatinine Clearance Estimated 87 mL/min (50-200); Estimated Glomerular Filt Rate 93 ml/min (>60); GFR (African American) 112 ML/MIN (>60); Glucose 121 mg/dl (74-100); Magnesium 1.6 mg/dl (1.6-2.3)
[2023-04-16 08:00] VITALS: O2SAT 95
--- NOTE | 2023-04-16 09:04 | EXP.SURG.CON ---
History of Present Illness *Admission Date: 04/15/23 *Reason for visit:: Small bowel obstruction *History of present illness: This is an 82-year-old gentleman seen in consultation from the primary service for evaluation regarding small bowel obstruction. He was admitted overnight after presenting with abdominal pain and nausea. He had a CT completed in the emergency department that showed dilated gas and fluid-filled loops of small bowel with distal decompression consistent with obstruction. He states that he currently feels fine (no current nausea and no current pain). He is uncertain as why he was brought to the emergency department. He denies flatus at least since coming to the hospital . He believes his last bowel movement was or so . Forwarded from emergency department evaluation: General Chief Complaint: Abdominal Pain Stated Complaint: nausea Time Seen by Provider: 04/15/23 19:48 Mode of Arrival: Ambulatory Source of Information: Patient Limitations: No Limitations Description of Symptoms (Recalled from ER Triage Doc. by RN): PATIENT C/O LOWER ABDOMINAL PAIN, NAUSEA AND HICCUPS THAT STARTED THIS MORNING AFTER EATING SARDINES YESTERDAY History of Present Illness HPI narrative: abd pain with nausea today w/o fever or vomiting complaint: abdominal pain Onset (ago): hour(s) Consistency: intermittent Location: diffuse Severity: moderate Associated symptoms: denies other symptoms Forwarded from admission H&P: The patient is a 82 year old male who presented to the ED for c/o abdominal pain. PMHX of atrial fibrillation, HTN, anemia, and GERD. States that abdominal pain started one day prior. The pain is associated with hiccups. Denied nausea upon exam but stated that he had nausea earlier in the day. Denies fever or vomiting. Work up in the ED revealed Small bowel obstruction. Dr. Brown spoke with hosptialist team for medical admission. The patient will be admitted on bowel rest with a surgical consult placed. [facility] Disclaimer: The information contained in this section may have been updated after the patient was seen, as this information can be updated by other users. Medical History Acute back pain with sciatica Atrial fibrillation Atrial fibrillation with rapid ventricular response Back pain of lumbar region with sciatica Carbuncle, neck Cellulitis and abscess of finger, unspecified Cellulitis, neck Healing wound Hypertension Leukocytosis Low sodium levels MRSA (methicillin resistant Staphylococcus aureus) septicemia Sepsis Strain of lumbar region Surgical History History of hernia repair Hx of transurethral resection of prostate Family History (Updated 04/15/23 @ 22:54 by Jelly Lyons RN) No significant family history Social History (Updated 04/15/23 @ 22:54 by Jelly Lyons RN) Smoking Status: Former smoker alcohol intake: never substance use type: denies use current occupational status: disabled Travel in the last 8 weeks: None household members: family housing: house Review of Systems *Neurologic Neurologic: Reports system reviewed and no additional complaints, except as documented Meds Home Medications and Allergies Home Medications Medication Instructions Recorded Confirmed Type amlodipine 10 mg tablet 10 mg PO DAILY Hypertension #90 08/17/22 04/15/23 Rx tabs lisinopril 40 mg tablet 40 mg PO DAILY Hypertension #90 08/17/22 04/15/23 Rx tabs metoprolol tartrate 25 mg tablet 25 mg PO BID High blood pressure 01/31/23 04/15/23 History allopurinol 300 mg tablet 300 mg PO DAILY gout #90 tabs 02/21/23 04/15/23 Rx famotidine 20 mg tablet 20 mg PO DAILY GERD #90 tabs 02/21/23
--- NOTE | 2023-04-16 09:43 | HMH.ITSTN ---
Spoke to nurse Leal on floor has ordered a abdomen series for 3 pm he wants the patient to drink 120ml of gastrografin at 9am prior to xray at 3 pm -- I took up Gastrografin and patient finished it at 9:45am -- will do xrays at [address] beal
--- NOTE | 2023-04-16 11:40 | HMH.PHAINT1 ---
Pharmacy Intervention Comments: MEDICATION RECONCILIATION COMPLETE USING LIST FROM MOST RECENT MD OFFICE VISIT AND EXTERNAL PHARMACY FILL HISTORY.
--- NOTE | 2023-04-16 13:33 | PC.NURSE ---
Report given to Anuja Richmond RN who assumes care of patient at this time.
--- NOTE | 2023-04-16 15:00 | XR_ITS ---
PROCEDURE INFORMATION: Exam: XR Complete Acute Abdomen Series Including Chest Exam date and time: 04/16/2023 3:15 PM Age: 82 years old Clinical indication: Abdominal pain; Generalized; Additional info: Severe ileus versus sbo TECHNIQUE: Imaging protocol: Radiologic exam. Complete acute abdomen series, including 2 or more views of the abdomen and a single view chest. COMPARISON: CT ABDOMEN PELVIS W CON 04/15/2023 8:38 PM FINDINGS: Lungs: Mild lower pulmonary interstitial prominence, and lower pulmonary subsegmental atelectasis. No focal consolidation. A possible 6 mm granuloma in the right lower lung field. Pulmonary vessels do not appear significantly congested. Pleural spaces: Unremarkable. No significant pleural effusion. No pneumothorax. Heart/Mediastinum: Enlarged cardiac silhouette. Gastrointestinal tract: Compared with yesterday's CT exam, gaseous dilatation of small intestinal loops at the left flank has resolved. There is presumed contrast material throughout the colon and rectum on this exam; no oral or rectal contrast was seen on the prior CT from 04/15/2023, correlate for interval contrast administration. The colon is not dilated. Intraperitoneal space: No free intraperitoneal air seen on the upright view. Bones/joints: There are spinal degenerative changes, with multilevel disc narrrowing and spondylosis. Bilateral hip arthritis. Chronic appearing left femur deformity, likely old healed trauma. Sacroiliitis. Soft tissues: No acute findings in the soft tissues, as visualized. IMPRESSION: 1. Gaseous dilatation of small bowel loops at the left flank has resolved, compared with the previous CT from 04/15/2023. 2. There is contrast material throughout the colon and rectum, no dilated colon loops. 3. No free air. 4. Nonspecific lower pulmonary interstitial prominence and mild subsegmental atelectasis; no focal consolidation. 5. Additional nonemergency and chronic findings as above.
[2023-04-16 15:15] VITALS: BP 117/57; PULSE 91; RESP 18; TEMP 36.6; O2SAT 95
--- NOTE | 2023-04-16 16:04 | EXP.PN ---
Subjective *Date: 04/16/23 *Time: 16:10 Interval history: Patient admits to bowel movement and flatus over the past 24 hours. Denies current abdominal discomfort. Patient's congregational friends in room at time of evaluation by Dr. Bucio. Exam Data for Last 24 hours Vital signs and Labs for Last 24 Hours: Temp Pulse Resp BP Pulse Ox 97.8 F 91 H 18 117/57 L 95 04/16/23 15:15 04/16/23 15:15 04/16/23 15:15 04/16/23 15:15 04/16/23 15:15 Laboratory Results - last 24 hr 04/15/23 20:10: WBC 14.0 H, RBC 4.86, Hgb 15.1, Hct 46.7, MCV 96.1 H, MCH 31.1, MCHC 32.4, RDW 14.3, Plt Count 224, MPV 8.7, Neut % (Auto) 89.8 H, Lymph % (Auto) 7.4 L, [place] % (Auto) 2.2, Eos % (Auto) 0.4, Baso % (Auto) 0.2, Neut # (Auto) 12.6 H, Lymph # (Auto) 1.0, [place] # (Auto) 0.3, Eos # (Auto) 0.1, Baso # (Auto) 0.0, Total Counted 100, Neutrophils % (Manual) 90 H, Lymphocytes % (Manual) 9 L, Monocytes % (Manual) 1 L, Platelet Estimate Slight decrease, RBC Morphology Normal, ESR 22 H 04/15/23 20:10: Sodium 134 L, Potassium 4.0, Chloride 94 L, Carbon Dioxide 25, Anion Gap 19.0 H, BUN 10, Creatinine 0.70, Estimated Creat Clear 50, Estimated GFR 108, Est GFR ( Amer) 131, Glucose 155 H, Calcium 9.2, Total Bilirubin 0.9, AST 38, ALT 31, Alkaline Phosphatase 134 H, C-Reactive Protein 12.0 H, Total Protein 9.1 H, Albumin 4.7, Globulin 4.4 H, Albumin/Globulin Ratio 1.1, Amylase 72, Lipase 40, Procalcitonin 0.054 04/15/23 20:10: PT 11.0, INR 1.02 04/15/23 21:16: SARS-CoV-2 (PCR) Not detected, Influenza A Untype (PCR) Not detected, Influenza Type B (PCR) Not detected 04/16/23 06:45: WBC 14.8 H, RBC 4.29 L, Hgb 13.7 L, Hct 40.5 L, MCV 94.4 H, MCH 31.9 H, MCHC 33.8, RDW 14.4, Plt Count 200, MPV 8.8, Neut % (Auto) 81.4 H, Lymph % (Auto) 12.4, [place] % (Auto) 5.9, Eos % (Auto) 0.1, Baso % (Auto) 0.2, Neut # (Auto) 12.1 H, Lymph # (Auto) 1.8, [place] # (Auto) 0.9, Eos # (Auto) 0.0, Baso # (Auto) 0.0 04/16/23 06:45: PT 11.4, INR 1.06 04/16/23 06:45: Sodium 134 L, Potassium 3.2 L, Chloride 98, Carbon Dioxide 25, Anion Gap 14.2, BUN 13 D, Creatinine 0.80, Estimated Creat Clear 87, Estimated GFR 93, Est GFR ( Amer) 112, Glucose 121 H D, Calcium 8.4, Magnesium 1.6 I & O for Last 24 hours: Intake & Output 04/13/23 04/14/23 04/15/23 04/16/23 23:59 23:59 23:59 23:59 Intake Total 1000 / 1000 700 / 700 Output Total 250 / 250 Balance 1000 / 900 450 / 450 Weight 108.522 kg 108.522 kg Constitutional Constitutional: no acute distress *Routine HEENT Exam Head: Present normocephalic Eye: Present EOMI and normal accommodation ENT: Present mucous membranes moist *Routine Neck Exam Neck: Present supple and full ROM *Routine Respiratory Exam Respiratory: Present CTA bilaterally; Absent accessory muscle use *Routine Cardiovascular Exam Cardiovascular: Present RRR, Normal S1 and Normal S2 *Routine Rectal Exam Comments: deferred *Routine Exam Comments: deferred *Routine Extremities Exam Extremities: Present full ROM and normal capillary refill *Routine Skin Exam Skin: Present intact and warm *Routine Neurological Exam Neurological: Present alert, oriented X3 and moving all extremities Assessment and Plan *Assessment and plan (1) Small bowel obstruction: Status: Acute Category: Medical Code(s): K56.609 - Unspecified intestinal obstruction, unspecified as to partial versus complete obstruction (2) HTN (hypertension): Status: Acute Category: Medical Code(s): I10 - Essential (primary) hypertension (3) HLD (hyperlipidemia): Status: Acute Category: Medical Code(s): E78.5 - Hyperlipidemia, unspecified (4) Anemia: Status: Acute Category: Medical Code(s): D64.9 - Anemia, unspecified (5) Afib: Status: Acute Category: Medical Code(s): I48.91 - Unspecified atrial fibrillation (6) Gout: Status: Acute Category: Medical Code(s): M10.9 - Gout, unspecified
[2023-04-16 19:43] VITALS: BP 137/72; PULSE 107; RESP 20; TEMP 36.8; O2SAT 94
--- NOTE | 2023-04-16 20:31 | PC.NURSE ---
during rounding, pt stated he has made 7 trips to the bathroom with diarrhea. otherwise no c/o pain, n/v. brother in room.
[2023-04-17 03:54] VITALS: BP 103/60; PULSE 89; RESP 18; TEMP 36.6; O2SAT 94; BMI 39.6
--- NOTE | 2023-04-17 06:00 | XR_ITS ---
PROCEDURE INFORMATION: Exam: XR Complete Acute Abdomen Series Including Chest Exam date and time: 04/17/2023 5:52 AM Age: 82 years old Clinical indication: Abdominal tenderness; Additional info: Severe ileus versus sbo TECHNIQUE: Imaging protocol: Radiologic exam. Complete acute abdomen series, including 2 or more views of the abdomen and a single view chest. COMPARISON: CR XR ACUTE ABDOMEN SERIES 04/16/2023 3:15 PM FINDINGS: Lungs: Opacities in both bases may represent atelectasis or pneumonia.. Pleural spaces: Normal. No pleural effusions. No pneumothorax. Heart/Mediastinum: Cardiomegaly Gastrointestinal tract: Oral contrast in the decompressed colon. The dilatation of small bowel is decreasing in size. Intraperitoneal space: Normal. No free air. Bones/joints: Severe degenerative changes in the left hip. Milder degenerative changes in the right hip. Degenerative changes in the thoracolumbar spine Soft tissues: Normal. IMPRESSION: 1. Oral contrast in the decompressed colon. The dilatation of small bowel is decreasing in size. 2. Opacities in both bases may represent atelectasis or pneumonia..
[2023-04-17 06:04] LABS: Microscopic, Urine URINE MICROSCOPIC (MICROSCOPIC)
[2023-04-17 06:32] LABS: Appearance,Urine CLEAR (Clear); Bilirubin,Urine Negative (Negative); Blood, Urine Negative (Negative); Color,Urine YELLOW (Yellow); Glucose,Urine (UA) Negative (Negative); Ketones,Urine TRACE (Negative); Leukocyte Esterase,Urine Negative (Negative); Nitrate,Urine Negative (Negative); Protein,Urine Negative (Negative); Urobilinogen,Urine 0.2 EU/dl (0.2)
[2023-04-17 07:17] VITALS: BP 127/70; PULSE 92; RESP 18; TEMP 36.5; O2SAT 92
--- NOTE | 2023-04-17 07:23 | PC.NURSE ---
pt reports having two bowel movements over night. Denies any pain and reports passing gas. no c/o nausea or vomiting
[2023-04-17 07:51] LABS: Squamous Epithelial Cell,Urine Occasional #/hpf (0-5)
[2023-04-17 08:09] LABS: Basophils % 0.3 % (0.1-2.0); Eosinophils # 0.1 K/mm3 (0.0-0.4); Eosinophils % 1.3 % (0.1-12.0); Hematocrit 36.5 % (42.0-52.0); Hemoglobin 12.2 g/dL (14.1-18.0); Lymphocytes # 1.9 K/mm3 (0.7-4.5); Lymphocytes % 23.5 % (10-50); Mean Corpuscular HGB Conc 33.3 g/dL (31.8-35.4); Mean Corpuscular Hemoglobin 31.5 pg (27.0-31.2); Mean Corpuscular Volume 94.8 fl (80-94); Mean Platelet Volume 9.3 fl (7.4-10.4); Monocytes # 0.6 K/mm3 (0.1-1.0); Monocytes % 7.2 % (1.7-9.3); Neutrophils # 5.6 K/mm3 (1.8-7.8); Neutrophils % 67.7 % (37.0-80.0); Platelet Count 154 K/mm3 (142-424); Red Blood Count 3.86 M/mm3 (4.60-6.20); Red Cell Distribution Width 14.3 % (11.5-17.5); White Blood Count 8.3 K/mm3 (4.8-10.8)
[2023-04-17 08:27] LABS: Chloride 101 mmol/L (98-107); Sodium 137 mmol/L (136-145)
[2023-04-17 08:30] LABS: Blood Urea Nitrogen 14 mg/dl (9-20); Calcium 8.2 mg/dl (8.4-10.2); Carbon Dioxide 27 mmol/L (22.0-30.0); Creatinine Clearance Estimated 87 mL/min (50-200); Estimated Glomerular Filt Rate 93 ml/min (>60); GFR (African American) 112 ML/MIN (>60); Glucose 101 mg/dl (74-100); Magnesium 1.8 mg/dl (1.6-2.3)
--- NOTE | 2023-04-17 09:04 | PC.NURSE ---
spoke with surgeon and hospitalist. Will advance diet as tolerated due to pt having bowel movements and passing gas. pt continues to deny any pain
--- NOTE | 2023-04-17 09:14 | EXP.SURG.PN ---
Subjective Patient reports: flatus and bowel movement Narrative: The patient states that everything broke loose yesterday ...multiple bowel movements reported. Exam Data for Last 24 hours Vital signs and Labs for Last 24 Hours: Temp Pulse Resp BP Pulse Ox 97.7 F 92 H 18 127/70 92 L 04/17/23 07:17 04/17/23 07:17 04/17/23 07:17 04/17/23 07:17 04/17/23 07:17 Laboratory Results - last 24 hr 04/17/23 05:50: Urine Color Yellow, Urine Appearance Clear, Urine pH 6.0, Ur Specific [place] 1.010, Urine Protein Negative, Urine Glucose (UA) Negative, Urine Ketones Trace, Urine Blood Negative, Urine Nitrate Negative, Urine Bilirubin Negative, Urine Urobilinogen 0.2, Ur Leukocyte Esterase Negative, Urine RBC None, Urine WBC 3-5, Ur Squamous Epith Cells Occasional, Urine Bacteria None 04/17/23 07:14: WBC 8.3 D, RBC 3.86 L, Hgb 12.2 L, Hct 36.5 L, MCV 94.8 H, MCH 31.5 H, MCHC 33.3, RDW 14.3, Plt Count 154, MPV 9.3, Neut % (Auto) 67.7, Lymph % (Auto) 23.5, [place] % (Auto) 7.2, Eos % (Auto) 1.3, Baso % (Auto) 0.3, Neut # (Auto) 5.6, Lymph # (Auto) 1.9, [place] # (Auto) 0.6, Eos # (Auto) 0.1, Baso # (Auto) 0.0 04/17/23 07:14: Sodium 137, Potassium 3.0 L, Chloride 101, Carbon Dioxide 27, Anion Gap 12.0, BUN 14, Creatinine 0.80, Estimated Creat Clear 87, Estimated GFR 93, Est GFR ( Amer) 112, Glucose 101 H, Calcium 8.2 L, Magnesium 1.8 D I & O for Last 24 hours: Intake & Output 04/14/23 04/15/23 04/16/23 04/17/23 11:59 11:59 11:59 11:59 Intake Total 1700 / 1700 966 / 966 Output Total 250 / 250 250 / 250 Balance 1450 / 1450 716 / 716 Weight 239 lb 4 oz 238 lb Radiology Reports for the Last 24 Hours: Plain films this morning show the followin) Oral contrast in the decompressed colon. 2) The dilatation of small bowel is decreasing in size. Constitutional Constitutional: no acute distress *Routine Respiratory Exam Respiratory: Absent respiratory distress *Routine Cardiovascular Exam Cardiovascular: Absent tachycardia *Routine Abdominal Exam Abdominal: Present soft Progress Note: A&P Assessment and plan (1) Small bowel obstruction: Status: Acute Assessment and plan: Although partial obstruction remains a possibility, the patient most likely developed significant isolated ileus that has now resolved. Slowly advance diet as patient tolerates Continue serial abdominal exams
--- NOTE | 2023-04-17 10:08 | EXP.ACUTE.PN ---
Subjective *Date: 04/17/23 *Time: 10:08 Interval history: Abdominal pain is improving patient has had 2 bowel movements. Hungry Medical Exam Vital signs and Labs for Last 24 Hours: Vital Signs Temp Pulse Resp BP Pulse Ox 04/17/23 07:17 97.7 F 92 H 18 127/70 92 L 04/17/23 03:54 97.9 F 89 18 103/60 L 94 L 04/16/23 19:43 98.3 F 107 H 20 137/72 94 L 04/16/23 15:15 97.8 F 91 H 18 117/57 L 95 Intake and Output 04/16/23 04/17/23 04/17/23 23:59 07:59 15:59 Intake Total 966 / 966 Output Total 0 / 250 250 / 250 Balance 0 / 872 716 / 716 Intake: Intake, Oral Amount 120 / 120 Intake, Total IV Amount 846 / 846 0.9 % Sodium Chloride 1000ML 1, 846 / 846 000 ml @ 100 mls/hr IV .Q10H [facility] Rx#:[id number] Output: Output, Urine Amount 0 / 250 250 / 250 Other: Number of Unmeasured Voids 1 1 Number of Bowel Movements 1 Weight 107.955 kg Patient Weight 04/17/23 23:59 Weight 107.955 kg Laboratory Results - last 24 hr 04/17/23 05:50: Urine Color Yellow, Urine Appearance Clear, Urine pH 6.0, Ur Specific [place] 1.010, Urine Protein Negative, Urine Glucose (UA) Negative, Urine Ketones Trace, Urine Blood Negative, Urine Nitrate Negative, Urine Bilirubin Negative, Urine Urobilinogen 0.2, Ur Leukocyte Esterase Negative, Urine RBC None, Urine WBC 3-5, Ur Squamous Epith Cells Occasional, Urine Bacteria None 04/17/23 07:14: WBC 8.3 D, RBC 3.86 L, Hgb 12.2 L, Hct 36.5 L, MCV 94.8 H, MCH 31.5 H, MCHC 33.3, RDW 14.3, Plt Count 154, MPV 9.3, Neut % (Auto) 67.7, Lymph % (Auto) 23.5, [place] % (Auto) 7.2, Eos % (Auto) 1.3, Baso % (Auto) 0.3, Neut # (Auto) 5.6, Lymph # (Auto) 1.9, [place] # (Auto) 0.6, Eos # (Auto) 0.1, Baso # (Auto) 0.0 04/17/23 07:14: Sodium 137, Potassium 3.0 L, Chloride 101, Carbon Dioxide 27, Anion Gap 12.0, BUN 14, Creatinine 0.80, Estimated Creat Clear 87, Estimated GFR 93, Est GFR ( Amer) 112, Glucose 101 H, Calcium 8.2 L, Magnesium 1.8 D I & O for Labs for Last 24 Hours: Intake & Output 04/14/23 04/15/23 04/16/23 04/17/23 23:59 23:59 23:59 23:59 Intake Total 1000 / 1000 700 / 1122 966 / 966 Output Total 250 / 250 250 / 250 Balance 1000 / 900 450 / 872 716 / 716 Weight 108.522 kg 108.522 kg 107.955 kg Assessment and Plan *Assessment and plan (1) Afib: Status: Acute Category: Medical Code(s): I48.91 - Unspecified atrial fibrillation Plan Plan SBO -pt presents on 04/15 to ED for having abd pain since 04/14. -ED workup revealed small bowel obstruction -CT of abd reviewed and resulted in?Dilated gas and fluid-filled loops of small bowel within the left abdomen and pelvis with distal decompression compatible with small bowel obstruction. -Dr. Brown spoke w/ Dr. Infante in the ED. Surgical consult placed. We appreciate your recommendations -Seems to be better discussed with surgery advance diet if tolerates with no diarrhea hopefully will discharge tomorrow discussed with nursing staff at bedside. AFIB ANTICOAGULANTS -hx of Afib. Daily warfarin for anticoagulation -Warfarin currently held. Lovenox BID is ordered. Awaiting input on if case is surgical restart warfarin given no plans for surgery HTN HLD ANEMIA GERD GOUT -continue amlodipine 10mg daily, lisinopril 40 mg daily, metoprolol 25 mg daily for HTN -continue ferrous sulfate 325 mg daily for anemia -famotidine 20 mg daily for GERD. Will switch to IV if pt still NPO in the morning -continue allopurinol 300mg faily for gout -pt currently NPO, will continue all home medications once pt's diet is advanced ?FULL CODE Advance diet to GI soft discussed with nursing staff DVT: Restart Coumadin today Disposition: Possible discharge tomorrow.
--- NOTE | 2023-04-17 10:50 | PC.NURSE ---
notified of critical potassium. Will put in po
--- NOTE | 2023-04-17 12:22 | PC.NURSE ---
pt tolerated lunch and breakfast well. no c/o pain.
[2023-04-17 15:13] VITALS: BP 134/80; PULSE 77; RESP 18; TEMP 36.5; O2SAT 94
--- NOTE | 2023-04-17 16:39 | PC.NURSE ---
pt has tolerated all po intake thus far through out the shift. Will continue advancing as tolerated.
[2023-04-17 19:43] VITALS: BP 129/83; PULSE 100; RESP 18; TEMP 36.6; O2SAT 93
--- NOTE | 2023-04-17 21:15 | PC.NURSE ---
pt is eager to be discharged, brother in room. no current c/o. pt stated he has had 2-3 episodes of diarhea, but improving since yesterday. 2+ pitting edema in bilateral lower extremities.
[2023-04-18 04:00] VITALS: BP 131/87; PULSE 96; RESP 18; TEMP 36.7; O2SAT 96; BMI 40.4
--- NOTE | 2023-04-18 06:00 | XR_ITS ---
FINAL REPORT CLINICAL HISTORY: Severe ileus versus SBO COMPARISON: 04/17/2023 FINDINGS: There is cardiomegaly present. There is improved aeration in the lung bases since the prior film of April 17. There is no evidence of effusion, pneumothorax or other significant pleural disease. The mediastinum is unremarkable. There are multiple air-filled bowel loops with partially improved distension since the prior film of April 17. Which favor ileus over distal obstruction. There is no free intraperitoneal air. no abdominal radiopacities are seen in the abdomen. IMPRESSION: Multiple air-filled bowel loops with partially improved distension since the prior film of April 17. Favor ileus over distal obstruction. Cardiomegaly, and improved aeration of the lung bases since the prior exam. Reviewed, Interpreted and Dictated by Salvador Epstein III, MD Transcribed by Clarita Otto Authenticated and [facility]
[2023-04-18 06:15] LABS: Basophils % 0.3 % (0.1-2.0); Eosinophils # 0.2 K/mm3 (0.0-0.4); Eosinophils % 2.2 % (0.1-12.0); Hematocrit 39.2 % (42.0-52.0); Hemoglobin 12.7 g/dL (14.1-18.0); Lymphocytes % 24.9 % (10-50); Mean Corpuscular HGB Conc 32.5 g/dL (31.8-35.4); Mean Corpuscular Volume 98.5 fl (80-94); Mean Platelet Volume 8.9 fl (7.4-10.4); Monocytes # 0.7 K/mm3 (0.1-1.0); Monocytes % 8.1 % (1.7-9.3); Neutrophils # 5.2 K/mm3 (1.8-7.8); Neutrophils % 64.5 % (37.0-80.0); Platelet Count 153 K/mm3 (142-424); Red Blood Count 3.98 M/mm3 (4.60-6.20); Red Cell Distribution Width 14.3 % (11.5-17.5)
[2023-04-18 06:23] LABS: Chloride 103 mmol/L (98-107); Potassium 3.9 mmoL/L (3.5-5.1); Sodium 139 mmol/L (136-145)
[2023-04-18 06:24] LABS: INR 1.05 (0.9-1.1); Prothrombin Time 11.3 seconds (10.1-12.5)
[2023-04-18 06:26] LABS: Anion Gap 12.9 mEq/L (5-15); Blood Urea Nitrogen 13 mg/dl (9-20); Calcium 8.5 mg/dl (8.4-10.2); Carbon Dioxide 27 mmol/L (22.0-30.0); Creatinine Clearance Estimated 48 mL/min (50-200); Estimated Glomerular Filt Rate 108 ml/min (>60); GFR (African American) 131 ML/MIN (>60); Glucose 106 mg/dl (74-100)
[2023-04-18 07:11] VITALS: BP 126/74; PULSE 87; RESP 19; TEMP 36.7; O2SAT 97
[2023-04-18 07:23] LABS: Magnesium 1.9 mg/dl (1.6-2.3)
--- NOTE | 2023-04-18 08:48 | P.PN_ITS ---
Subjective Patient reports: no new complaints, flatus and bowel movement Narrative: The patient says that he is still passing a lot of gas . He has continued to have bowel movements but states that the last bowel movement was smaller . Exam Data for Last 24 hours Vital signs and Labs for Last 24 Hours: Temp Pulse Resp BP Pulse Ox 98.1 F 87 19 126/74 97 04/18/23 07:11 04/18/23 07:11 04/18/23 07:11 04/18/23 07:11 04/18/23 07:11 Laboratory Results - last 24 hr 04/17/23 07:14: Potassium 3.0 L 04/18/23 05:57: WBC 8.0, RBC 3.98 L, Hgb 12.7 L, Hct 39.2 L, MCV 98.5 H, MCH 32.0 H, MCHC 32.5, RDW 14.3, Plt Count 153, MPV 8.9, Neut % (Auto) 64.5, Lymph % (Auto) 24.9, [place] % (Auto) 8.1, Eos % (Auto) 2.2, Baso % (Auto) 0.3, Neut # (Auto) 5.2, Lymph # (Auto) 2.0, [place] # (Auto) 0.7, Eos # (Auto) 0.2, Baso # (Auto) 0.0 04/18/23 05:57: Sodium 139, Potassium 3.9 D, Chloride 103, Carbon Dioxide 27, Anion Gap 12.9, BUN 13, Creatinine 0.70, Estimated Creat Clear 48, Estimated GFR 108, Est GFR ( Amer) 131, Glucose 106 H, Calcium 8.5 04/18/23 05:57: Magnesium 1.9 04/18/23 05:57: PT 11.3, INR 1.05 I & O for Last 24 hours: Intake & Output 04/15/23 04/16/23 04/17/23 04/18/23 11:59 11:59 11:59 11:59 Intake Total 1700 / 1700 966 / 966 1800 / 1800 Output Total 250 / 250 250 / 250 700 / 700 Balance 1450 / 1450 716 / 716 1100 / 1100 Weight 239 lb 4 oz 238 lb 243 lb Constitutional Constitutional: no acute distress *Routine Respiratory Exam Respiratory: Absent respiratory distress *Routine Cardiovascular Exam Cardiovascular: Absent tachycardia *Routine Abdominal Exam Abdominal: Present soft Progress Note: A&P Assessment and plan (1) Small bowel obstruction: Status: Acute Assessment and plan: No definitive mechanical obstruction appreciable. Although the patient may have a partial obstruction, fairly significant bowel movement/flatus noted over the last 24 to 48 hours. The radiographic findings noted on his initial evaluation in the emergency department most likely are secondary to profound ileus that has resolved. Continue management as per primary service
--- NOTE | 2023-04-18 10:28 | EXP.DC.SUM ---
General Admission date:: 04/15/23 Discharge date: 04/18/23 HPI HPI HPI: This is an 82-year-old gentleman seen in consultation from the primary service for evaluation regarding small bowel obstruction. He was admitted overnight after presenting with abdominal pain and nausea. He had a CT completed in the emergency department that showed dilated gas and fluid-filled loops of small bowel with distal decompression consistent with obstruction. He states that he currently feels fine (no current nausea and no current pain). He is uncertain as why he was brought to the emergency department. He denies flatus at least since coming to the hospital . He believes his last bowel movement was or so . Forwarded from emergency department evaluation: General Chief Complaint: Abdominal Pain Stated Complaint: nausea Time Seen by Provider: 04/15/23 19:48 Mode of Arrival: Ambulatory Source of Information: Patient Limitations: No Limitations Description of Symptoms (Recalled from ER Triage Doc. by RN): PATIENT C/O LOWER ABDOMINAL PAIN, NAUSEA AND HICCUPS THAT STARTED THIS MORNING AFTER EATING SARDINES YESTERDAY History of Present Illness HPI narrative: abd pain with nausea today w/o fever or vomiting complaint: abdominal pain Onset (ago): hour(s) Consistency: intermittent Location: diffuse Severity: moderate Associated symptoms: denies other symptoms Forwarded from admission H&P: The patient is a 82 year old male who presented to the ED for c/o abdominal pain. PMHX of atrial fibrillation, HTN, anemia, and GERD. States that abdominal pain started one day prior. The pain is associated with hiccups. Denied nausea upon exam but stated that he had nausea earlier in the day. Denies fever or vomiting. Work up in the ED revealed Small bowel obstruction. Dr. Brown spoke with hosptialist team for medical admission. The patient will be admitted on bowel rest with a surgical consult placed. Hospital Course Hospital Course Hospital Course: Plan SBO -Treated conservatively successfully by advanced and patient tolerated very well. AFIB Patient was on Lovenox throughout the hospital stay until cleared by surgery. Patient will be discharged on Coumadin with close follow-up with anticoagulation clinic HTN HLD ANEMIA GERD GOUT -continue amlodipine 10mg daily, lisinopril 40 mg daily, metoprolol 25 mg daily for HTN -continue ferrous sulfate 325 mg daily for anemia -famotidine 20 mg daily for GERD. Will switch to IV if pt still NPO in the morning -continue allopurinol 300mg faily for gout Exam Data for Last 24 hours Vital signs and Labs for Last 24 Hours: Temp Pulse Resp BP Pulse Ox 98.1 F 87 19 126/74 97 04/18/23 07:11 04/18/23 07:11 04/18/23 07:11 04/18/23 07:11 04/18/23 07:11 Laboratory Results - last 24 hr 04/18/23 05:57: WBC 8.0, RBC 3.98 L, Hgb 12.7 L, Hct 39.2 L, MCV 98.5 H, MCH 32.0 H, MCHC 32.5, RDW 14.3, Plt Count 153, MPV 8.9, Neut % (Auto) 64.5, Lymph % (Auto) 24.9, [place] % (Auto) 8.1, Eos % (Auto) 2.2, Baso % (Auto) 0.3, Neut # (Auto) 5.2, Lymph # (Auto) 2.0, [place] # (Auto) 0.7, Eos # (Auto) 0.2, Baso # (Auto) 0.0 04/18/23 05:57: Sodium 139, Potassium 3.9 D, Chloride 103, Carbon Dioxide 27, Anion Gap 12.9, BUN 13, Creatinine 0.70, Estimated Creat Clear 48, Estimated GFR 108, Est GFR ( Amer) 131, Glucose 106 H, Calcium 8.5 04/18/23 05:57: Magnesium 1.9 04/18/23 05:57: PT 11.3, INR 1.05 I & O for Last 24 hours: Intake & Output 04/15/23 04/16/23 04/17/23 04/18/23 23:59 23:59 23:59 23:59 Intake Total 1000 / 1000 700 / 1122 2286 / 2526 480 / 480 Output Total 250 / 250 250 / 250 700 / 700 Balance 1000 / 900 450 / 872 2036 / 2276 -220 / -220 Weight 108.522 kg 108.522 kg 107.955 kg 110.223 kg *Routine HEENT Exam Head: Pres
--- NOTE | 2023-04-18 11:00 | PC.NURSE ---
PT IS READY FOR D/C JUST WAITING ON RIDE HOME
--- NOTE | 2023-04-20 13:18 | CARE MANAGER ---
Spoke with patient related to hospital discharge. He states that he is doing better and is aware of follow up appointments. Denies questions or concerns. SNOW Giordano
== END 2023-04-18 11:48 | disposition home or self-care (01) | DRG 390 ==
LOC: UTC 19:25 → ER 20:01 → 2ND 21:34
PROVIDERS: Family Medicine; Nurse Practitioner Critical Care Medicine; Admitting Provider Internal Medicine; Emergency Provider Emergency Medicine; PCP Nurse Practitioner Family; Visit Provider Internal Medicine
DX: K56.609 Unspecified intestinal obstruction, unspecified as to partial versus complete obstruction (principal); I48.91 Unspecified atrial fibrillation; Z79.01 Long term (current) use of anticoagulants; I10 Essential (primary) hypertension; E78.5 Hyperlipidemia, unspecified; K21.9 Gastro-esophageal reflux disease without esophagitis; Z79.899 Other long term (current) drug therapy; M10.9 Gout, unspecified; D64.9 Anemia, unspecified
CPT/HCPCS: G0378; 36415; 74021; 74177; 80048; 80053; 81001; 82150; 83690; 83735; 84145; 85007; 85025; 85610; 85651; 86140; 87635; 87636; 99285; C9803; J2405; Q9967; U0003; U0005

== ENCOUNTER 2023-04-25 10:36 | Outpatient (CLI) | payer MEDICARE, SELFPAY ==
[2023-04-25 13:20] LABS: PHA INR Fingerstick 1.1 (0.9-1.1)
== END 2023-04-25 14:35 ==
LOC: ACC 10:39
PROVIDERS: PCP Nurse Practitioner Family; Visit Provider Internal Medicine Cardiovascular Disease
DX: Z79.01 Long term (current) use of anticoagulants (principal); Z51.81 Encounter for therapeutic drug level monitoring; I48.20 Chronic atrial fibrillation, unspecified
CPT/HCPCS: 85610; 99211; G0463

== ENCOUNTER 2023-05-09 09:47 | Outpatient (CLI) | payer MEDICARE, SELFPAY ==
[2023-05-09 11:53] LABS: PHA INR Fingerstick 1.5 (0.9-1.1)
== END 2023-05-09 12:15 ==
LOC: ACC 09:48
PROVIDERS: PCP Nurse Practitioner Family; Visit Provider Internal Medicine Cardiovascular Disease
DX: Z79.01 Long term (current) use of anticoagulants (principal); Z51.81 Encounter for therapeutic drug level monitoring; I48.20 Chronic atrial fibrillation, unspecified
CPT/HCPCS: 85610; 99211; G0463

== ENCOUNTER 2023-06-06 10:18 | Outpatient (CLI) | payer MEDICARE, SELFPAY ==
[2023-06-06 10:57] LABS: PHA INR Fingerstick 2.7 (0.9-1.1)
== END 2023-06-06 11:02 ==
LOC: ACC 10:19
PROVIDERS: PCP Nurse Practitioner Family; Visit Provider Hospitalist
DX: Z79.01 Long term (current) use of anticoagulants (principal); Z51.81 Encounter for therapeutic drug level monitoring; I48.20 Chronic atrial fibrillation, unspecified
CPT/HCPCS: 85610; 99211; G0463

== ENCOUNTER 2023-07-04 10:01 | Outpatient (CLI) | payer MEDICARE, SELFPAY ==
[2023-07-04 12:05] LABS: PHA INR Fingerstick 2.7 (0.9-1.1)
== END 2023-07-04 12:07 ==
LOC: ACC 10:04
PROVIDERS: PCP Nurse Practitioner Family; Visit Provider Nurse Practitioner Family
DX: Z79.01 Long term (current) use of anticoagulants (principal); Z51.81 Encounter for therapeutic drug level monitoring; I48.20 Chronic atrial fibrillation, unspecified
CPT/HCPCS: 85610; 99211; G0463

== ENCOUNTER 2023-08-08 10:03 | Outpatient (CLI) | payer MEDICARE, SELFPAY ==
[2023-08-08 10:52] LABS: PHA INR Fingerstick 2.1 (0.9-1.1)
== END 2023-08-08 10:53 ==
LOC: ACC 10:05
PROVIDERS: PCP Nurse Practitioner Family; Visit Provider Hospitalist
DX: Z79.01 Long term (current) use of anticoagulants (principal); Z51.81 Encounter for therapeutic drug level monitoring; I48.20 Chronic atrial fibrillation, unspecified
CPT/HCPCS: 85610; 99211; G0463

== ENCOUNTER → 2023-08-08 16:52 | Outpatient (CLI) | payer MEDICARE, SELFPAY ==
[2023-08-08 15:00] LABS: Basophils % 0.3 % (0.1-2.0); Eosinophils # 0.1 K/mm3 (0.0-0.4); Hematocrit 42.7 % (42.0-52.0); Hemoglobin 14.6 g/dL (14.1-18.0); Lymphocytes # 2.1 K/mm3 (0.7-4.5); Lymphocytes % 18.9 % (10-50); Mean Corpuscular HGB Conc 34.2 g/dL (31.8-35.4); Mean Corpuscular Hemoglobin 34.6 pg (27.0-31.2); Mean Corpuscular Volume 101.1 fl (80-94); Mean Platelet Volume 10.1 fl (7.4-10.4); Monocytes # 0.6 K/mm3 (0.1-1.0); Monocytes % 5.2 % (1.7-9.3); Neutrophils # 8.3 K/mm3 (1.8-7.8); Neutrophils % 74.6 % (37.0-80.0); Platelet Count 178 K/mm3 (142-424); Red Blood Count 4.22 M/mm3 (4.60-6.20); Red Cell Distribution Width 14.5 % (11.5-17.5); White Blood Count 11.2 K/mm3 (4.8-10.8)
[2023-08-08 16:07] LABS: Alanine Aminotransferase 21 U/L (12-78); Albumin Level 4.3 g/dl (3.5-5.0); Albumin/Globulin Ratio 1.2 (1.1-1.8); Alkaline Phosphatase 137 U/L (38-126); Anion Gap 14.5 mEq/L (5-15); Aspartate Amino Transferase 31 U/L (17-59); Blood Urea Nitrogen 17 mg/dl (9-20); Calcium 9.5 mg/dl (8.4-10.2); Carbon Dioxide 28 mmol/L (22.0-30.0); Chloride 101 mmol/L (98-107); Chol/HDL Ratio 7.4 (1-3.5); Cholesterol 200 mg/dl (140-200); Estimated Glomerular Filt Rate 81 ml/min (>60); GFR (African American) 98 ML/MIN (>60); Globulin 3.7 g/dL (1.3-3.2); Glucose 97 mg/dl (74-100); HDL Cholesterol 27 mg/dl (40-60); Potassium 4.5 mmoL/L (3.5-5.1); Sodium 139 mmol/L (136-145); Triglycerides 165 mg/dl (30-150); Uric Acid 5.5 mg/dl (3.5-8.5); VLDL Cholesterol 33 mg/dL (0-40)
[2023-08-08 16:18] LABS: Direct LDL Cholesterol 122.73 mg/dL (100-129)
[2023-08-08 16:26] LABS: Free T4 (Free Thyroxine) 1.32 ng/dl (0.78-2.19)
[2023-08-08 16:40] LABS: Thyroid Stimulating Hormone 2.86 uIU/mL (0.465-4.68)
== END ==
LOC: LAB.DROPOF 16:53
PROVIDERS: PCP Nurse Practitioner Family; Visit Provider Nurse Practitioner Family
DX: I10 Essential (primary) hypertension; I48.20 Chronic atrial fibrillation, unspecified; Z51.81 Encounter for therapeutic drug level monitoring; Z79.01 Long term (current) use of anticoagulants; M10.9 Gout, unspecified; E78.5 Hyperlipidemia, unspecified; K21.9 Gastro-esophageal reflux disease without esophagitis
CPT/HCPCS: 80053; 80061; 84439; 84443; 84550; 85025

== ENCOUNTER → 2023-08-11 13:56 | Outpatient (CLI) | payer MEDICARE, SELFPAY | LOC: LAB.DROPOF 08-16 13:57 | PROVIDERS: PCP Family Medicine; Visit Provider Family Medicine | DX: M10.9 Gout, unspecified (principal); E78.5 Hyperlipidemia, unspecified; I10 Essential (primary) hypertension; K21.9 Gastro-esophageal reflux disease without esophagitis | CPT/HCPCS: 80053; 80061; 84439; 84443; 84550; 85025 ==

== ENCOUNTER 2023-09-19 10:13 | Outpatient (CLI) | payer MEDICARE, SELFPAY ==
[2023-09-19 13:58] LABS: PHA INR Fingerstick 2.6 (0.9-1.1)
== END 2023-09-19 14:01 ==
LOC: ACC 10:14
PROVIDERS: PCP Nurse Practitioner Family; Visit Provider Hospitalist
DX: Z79.01 Long term (current) use of anticoagulants (principal); Z51.81 Encounter for therapeutic drug level monitoring; I48.20 Chronic atrial fibrillation, unspecified
CPT/HCPCS: 85610; 99211; G0463

== ENCOUNTER 2023-10-31 09:49 | Outpatient (CLI) | payer MEDICARE, SELFPAY ==
[2023-10-31 15:44] LABS: PHA INR Fingerstick 2.3 (0.9-1.1)
== END 2023-10-31 15:51 ==
LOC: ACC 09:53
PROVIDERS: PCP Nurse Practitioner Family; Visit Provider Nurse Practitioner Family
DX: Z79.01 Long term (current) use of anticoagulants (principal); Z51.81 Encounter for therapeutic drug level monitoring; I48.20 Chronic atrial fibrillation, unspecified
CPT/HCPCS: 85610; 99211; G0463

== ENCOUNTER 2023-12-12 09:15 | Outpatient (CLI) | payer MEDICARE, SELFPAY ==
[2023-12-12 10:09] LABS: PHA INR Fingerstick 2.5 (0.9-1.1)
== END 2023-12-12 10:21 ==
LOC: ACC 09:17
PROVIDERS: PCP Nurse Practitioner Family; Visit Provider Nurse Practitioner Family
DX: Z79.01 Long term (current) use of anticoagulants (principal); Z51.81 Encounter for therapeutic drug level monitoring; I48.20 Chronic atrial fibrillation, unspecified
CPT/HCPCS: 85610; 99211; G0463

== ENCOUNTER 2024-01-16 09:18 | Outpatient (CLI) | payer MEDICARE, SELFPAY ==
[2024-01-16 10:32] LABS: PHA INR Fingerstick 2.6 (0.9-1.1)
== END 2024-01-16 10:33 ==
LOC: ACC 09:19
PROVIDERS: PCP Nurse Practitioner Family; Visit Provider Nurse Practitioner Family
DX: Z79.01 Long term (current) use of anticoagulants (principal); Z51.81 Encounter for therapeutic drug level monitoring; I48.20 Chronic atrial fibrillation, unspecified
CPT/HCPCS: 85610; 99211; G0463

== ENCOUNTER 2024-02-20 09:11 | Outpatient (CLI) | payer MEDICARE, SELFPAY ==
[2024-02-20 13:54] LABS: PHA INR Fingerstick 2.3 (0.9-1.1)
== END 2024-02-20 14:08 ==
LOC: ACC 09:12
PROVIDERS: PCP Nurse Practitioner Family; Visit Provider Nurse Practitioner Family
DX: Z79.01 Long term (current) use of anticoagulants (principal); I48.20 Chronic atrial fibrillation, unspecified; Z51.81 Encounter for therapeutic drug level monitoring
CPT/HCPCS: 85610; 99211; G0463

== ENCOUNTER 2024-04-02 09:37 | Outpatient (CLI) | payer MEDICARE, SELFPAY ==
[2024-04-02 11:16] LABS: PHA INR Fingerstick 2.8 (0.9-1.1)
== END 2024-04-02 11:36 ==
LOC: ACC 09:38
PROVIDERS: PCP Nurse Practitioner Family; Visit Provider Nurse Practitioner Family
DX: Z79.01 Long term (current) use of anticoagulants (principal); Z51.81 Encounter for therapeutic drug level monitoring; I48.20 Chronic atrial fibrillation, unspecified
CPT/HCPCS: 85610; 99211; G0463

== ENCOUNTER 2024-04-10 11:03 | Emergency (ER) | payer MEDICARE, SELFPAY ==
[2024-04-10 11:05] VITALS: BP 101/65; PULSE 90; RESP 20; TEMP 36.6; O2SAT 95; BMI 34.0
[2024-04-10 11:30] VITALS: BMI 34.0
[2024-04-10 11:43] LABS: Basophils # 0.1 K/mm3 (0-0.2); Basophils % 0.6 % (0.1-2.0); Eosinophils % 0.2 % (0.1-12.0); Hematocrit 38.9 % (42.0-52.0); Lymphocytes # 1.4 K/mm3 (0.7-4.5); Lymphocytes % 12.3 % (10-50); Mean Corpuscular HGB Conc 33.5 g/dL (31.8-35.4); Mean Corpuscular Hemoglobin 33.7 pg (27.0-31.2); Mean Corpuscular Volume 100.8 fl (80-94); Mean Platelet Volume 9.9 fl (7.4-10.4); Monocytes # 0.4 K/mm3 (0.1-1.0); Monocytes % 3.3 % (1.7-9.3); Neutrophils # 9.6 K/mm3 (1.8-7.8); Neutrophils % 83.6 % (37.0-80.0); Platelet Count 194 K/mm3 (142-424); Red Blood Count 3.86 M/mm3 (4.60-6.20); Red Cell Distribution Width 14.8 % (11.5-17.5); White Blood Count 11.4 K/mm3 (4.8-10.8)
[2024-04-10 11:51] LABS: Chloride 104 mmol/L (98-107); Potassium 4.2 mmoL/L (3.5-5.1); Sodium 138 mmol/L (136-145)
--- NOTE | 2024-04-10 11:52 | ED_ITS ---
Discharge Plan Disposition Patient Disposition: Home, Self-Care Chief Complaint: PAIN Prescriptions Prescriptions: No Action amlodipine 10 mg tablet 10 mg PO DAILY Qty: 90 1RF metoprolol tartrate 25 mg tablet 25 mg PO BID docusate sodium [Stool Softener] 100 mg capsule 100 mg PO DAILY potassium chloride 20 mEq tablet,ER particles/crystals 20 meq PO DAILY famotidine 20 mg tablet 20 mg PO DAILY Qty: 90 3RF allopurinol 300 mg tablet See Rx Instructions .ROUTE .COMPLEX Qty: 90 3RF Dose Instruction: TAKE 1 TABLET BY MOUTH ONCE DAILY FOR GOUT Rx Instructions: TAKE 1 TABLET BY MOUTH ONCE DAILY FOR GOUT hydrochlorothiazide 25 mg tablet See Rx Instructions .ROUTE .COMPLEX Qty: 90 0RF Dose Instruction: TAKE 1 TABLET BY MOUTH ONCE DAILY FOR EDEMA Rx Instructions: TAKE 1 TABLET BY MOUTH ONCE DAILY FOR EDEMA lisinopril 40 mg tablet 40 mg PO DAILY Qty: 90 3RF ferrous sulfate 325 mg (65 mg iron) tablet See Rx Instructions .ROUTE .COMPLEX Qty: 90 0RF Dose Instruction: Take 1 tablet by mouth once daily Rx Instructions: Take 1 tablet by mouth once daily warfarin 5 mg tablet See Rx Instructions .ROUTE .COMPLEX Qty: 90 1RF Dose Instruction: TAKE 1 TABLET BY MOUTH ONCE DAILY WITH A 1MG TABLET FOR A TOTAL OF 6MG DAILY Rx Instructions: TAKE 1 TABLET BY MOUTH ONCE DAILY WITH A 1MG TABLET FOR A TOTAL OF 6MG DAILY warfarin 1 mg tablet 1 mg PO DAILY Rx Instructions: take with 5mg tab for a total of 6mg daily Referrals Follow up/Referrals: Khadijah Diaz APRN [Primary Care Provider] - See instructions Activity Restrictions/Add. Instructions Additional Instructions/Restrictions: At this time it was felt you are safe to be discharged home. If new or worsening symptoms please do not hesitate to return the emergency department. Please follow-up with your family doctor in 48 hours for recheck of your INR as it was elevated today (your blood thinner level). Please call and schedule appointment with Dr. Cadet as soon as you are able. As discussed if you begin to lose sensation in your hand, with blood flow to your hand, become unable to feel your arm or any other concerning symptoms please come back to the emergency department. Clinical Impressions Clinical Impression: Elevated INR, Hematoma, Bruising Discharge ED Provider: Gonzalo Krishna General Adult HPI General Chief complaint: PAIN Stated complaint: left arm black and blue, left shoulder pain Time Seen by Provider: 04/10/24 11:52 History of Present Illness HPI narrative: Patient is a 83-year-old male who uses a walker at baseline, hypertension, hyperlipidemia, atrial fibrillation on warfarin who presents emergency department for evaluation of bruise and swelling. Patient states that he was using his walker with his left arm yesterday when he usually uses his right hand felt pain over his bicep. States that he developed bruising since Tuesday which was rapidly progressive initially however has not progressed since then. Due to significant bruising and presents here for continued evaluation. No trauma, no other acute complaints at this time Related Data Home Medications Medication Instructions Recorded Confirmed metoprolol tartrate 25 mg tablet 25 mg PO BID High blood pressure 01/31/23 04/10/24 warfarin 1 mg tablet 1 mg PO DAILY afib 04/15/23 04/10/24 docusate sodium 100 mg capsule 100 mg PO DAILY 11/08/23 04/10/24 (Stool Softener) potassium chloride 20 mEq 20 meq PO DAILY 02/02/24 04/10/24 tablet,extended release(part/cryst) Previous Rx's Medication Instructions Recorded amlodipine 10 mg tablet 10 mg PO DAILY Hypertension #90 08/17/22 tabs famotidine 20 mg tablet 20 mg PO DAILY GERD #90 tabs 08/23/23 allopurinol 300 mg tablet See Rx Instructions .Route 02/15/24 .COMPLEX #90 tabs hydrochlorothiazide 25 mg tablet See Rx Instructions .Route 03/26/24 .COMPLEX #90 tabs lisinopril 40 mg tablet 40 mg PO DAILY Hypertension #90 03/29/24 tabs ferrous sulfate 325 mg (65 mg See Rx Instructions .Route 04/04/24 iron) tablet .COMPLEX #90 tabs warfarin 5 mg tablet See Rx Instructions .Route 04/10/24 .COMPLEX #90 tabs Allergies Allergy/AdvReac Type Severity Reaction Status Date / Time No Known Allergies Allergy Verified 02/02/24 08:50 [facility] Disclaimer: The information contained in this section may have been updated after the patient was seen, as this information can be updated by other users. Medical History (Updated 04/10/24 @ 12:02 by Gonzalo Krishna MD) Bowel obstruction BMI 38.0-38.9,adult Back pain of lumbar region with sciatica Atrial fibrillation Hypertension Healing wound Low sodium levels MRSA (methicillin resistant Staphylococcus aureus) septicemia Carbuncle, neck Leukocytosis Cellulitis, neck Cellulitis and abscess of finger, unspecified Sepsis Atrial fibrillation with rapid ventricular response Acute back pain with sciatica Strain of lumbar region Surgical History (Updated 02/20/24 @ 10:36 by Khadijah Diaz APRN) H/O colonoscopy Hx of transurethral resection of prostate History of hernia repair Family History (Updated 02/20/24 @ 10:33 by Khadijah Diaz APRN) Mother Coronary artery disease Brother Coronary artery disease Hypertension Heart disease Other No significant family history Social History Smoking Status: Unknown if ever smoked alcohol intake: never substance use type: denies use current occupational status: disabled Travel in the last 8 weeks: None household members: family housing: house ROS Obtained: Yes Systems reviewed as appropriate & no additional complaints except as documented Physical Exam General General appearance: alert and in no apparent distress Head Head exam: atraumatic and normocephalic Eye Eye exam: Present PERRL ENT ENT exam: Present mucous membranes moist Neck Neck exam: Present normal inspection Chest Chest inspection: Present normal inspection and symmetric chest wall rise Respiratory Respiratory exam: Present normal lung sounds bilaterally; Absent respiratory distress Cardiovascular Cardiovascular exam: Present regular rate and normal rhythm Abdominal Exam Abdominal exam: Present soft Extremities Exam Extremities exam: Present other (Significant bruising over the volar aspect of his upper arm and proximal forearm. Palpable radial pulse, 5 out of 5 strength at the elbow, wrist, hand. Sensation intact to light touch distally.) Neurological Exam Neurological exam: Present alert Psychiatric Psychiatric exam: Present normal affect Skin Skin exam: Present warm and dry Medical Decision Making Sumanth Inquiry Pt receiving controlled substance: No Vital Signs: 04/10/24 11:05 Temperature 97.8 F Temperature Source Oral Pulse Rate [Right] 90 Respiratory Rate 20 Blood Pressure [Right Arm] 101/65 L Blood Pressure Mean [Right Arm] 77 02 Sat by Pulse Oximetry 95 Oxygen Delivery Method Room Air Lab Data Lab Results 04/10/24 11:33: WBC 11.4 H, RBC 3.86 L, Hgb 13.0 L, Hct 38.9 L, MCV 100.8 H, MCH 33.7 H, MCHC 33.5, RDW 14.8, Plt Count 194, MPV 9.9, Neut % (Auto) 83.6 H, Lymph % (Auto) 12.3, [place] % (Auto) 3.3, Eos % (Auto) 0.2, Baso % (Auto) 0.6, Neut # (Auto) 9.6 H, Lymph # (Auto) 1.4, [place] # (Auto) 0.4, Eos # (Auto) 0.0, Baso # (Auto) 0.1, PT 45.2 H, INR 4.63 H, APTT 50.5 H, Sodium 138, Potassium 4.2, Chloride 104, Carbon Dioxide 25, Anion Gap 13.2, BUN 24 H, Creatinine 1.10, Estimated Creat Clear 82, Estimated GFR 64, Est GFR ( Amer) 77, Glucose 132 H, Calcium 9.4, Total Bilirubin 1.2, AST 34, ALT 28, Alkaline Phosphatase 124, Total Protein 7.3, Albumin 4.2, Globulin 3.1, Albumin/Globulin Ratio 1.4 04/10/24 11:33 04/10/24 11:33 Orders (Tests/Meds): ORDERS Category Date Time Status Complete Blood Count Auto Diff Stat Lab 04/10/24 11:33 Completed Comprehensive Metabolic Panel Stat Lab 04/10/24 11:33 Completed PT/PTT Stat Lab 04/10/24 11:33 Completed Prothrombin Time INR Stat Lab 04/10/24 11:33 Completed Medical Decision Narrative: In summary patient is a 83-year-old male with past medical history described above who presents emergency department for evaluation of upper arm bruising. Patient is hemodynamically stable nontoxic-appearing upon arrival, afebrile. Given no trauma no significant tenderness I did not have any concern for fracture at this time. Patient is anticoagulated, he does have full range of motion of flexion at the shoulder, elbow, wrist however I have concern for partial tear of one of the deep flexor muscles of his upper arm given the significant bruising and story. Patient is distally neurovascularly intact, he does have a palpable hematoma on his flexor aspect of the upper arm however has no current signs of compartment syndrome at this time. Basic labs will be obtained to assess INR. Workup reviewed by me, hematologic labs are nonactionable. Patient does have supratherapeutic INR however it is less than 5 and he is currently asymptomatic as hematoma appears to be stable for multiple days. Given this patient is appropriate for discharge at this time we will follow-up for adjustment of his warfarin and will follow-up with orthopedics. Patient was given return precautions. Critical Care Critical Care Time Critical Care Time: No
[2024-04-10 11:53] LABS: Alanine Aminotransferase 28 U/L (12-78); Aspartate Amino Transferase 34 U/L (17-59); Blood Urea Nitrogen 24 mg/dl (9-20); Creatinine Clearance Estimated 82 mL/min (50-200); Estimated Glomerular Filt Rate 64 ml/min (>60); GFR (African American) 77 ML/MIN (>60)
[2024-04-10 11:54] LABS: Activated Partial Thrombo Time 50.5 seconds (22.8-30.6); Albumin Level 4.2 g/dl (3.5-5.0); Albumin/Globulin Ratio 1.4 (1.1-1.8); Alkaline Phosphatase 124 U/L (38-126); Anion Gap 13.2 mEq/L (5-15); Bilirubin,Total 1.2 mg/dl (0.2-1.3); Calcium 9.4 mg/dl (8.4-10.2); Carbon Dioxide 25 mmol/L (22.0-30.0); Globulin 3.1 g/dL (1.3-3.2); Glucose 132 mg/dl (74-100); INR 4.63 (0.9-1.1); Total Protein,Serum 7.3 g/dl (6.3-8.2)
--- NOTE | 2024-04-10 11:56 | PC.NURSE ---
call placed to orthopedics for consult and referral, hoping to arrange appt for him today.
[2024-04-10 11:59] LABS: Prothrombin Time 45.2 seconds (10.1-12.5)
[2024-04-10 12:20] VITALS: BP 108/59; PULSE 68; RESP 18; TEMP 36.6; O2SAT 96
--- NOTE | 2024-04-10 14:21 | PC.NURSE ---
Pt had left his home medications in the ER from his visit. I called to let him know of this, and he was concerned that his pain was severe and he had no medication to help it. He had taken Ibuprofen but it wasn't helping. I s/w Dr. Krishna regarding the pt's concerns. Dr. Krishna is sending in a few days of stronger pain medications and was urged to set up appt with orthopedics. I educated pt on new medication sent to [facility]. I also called Ortho dept and transferred pt so he could set up appt.
== END 2024-04-10 12:21 | disposition home or self-care (01) ==
PROVIDERS: Emergency Provider Emergency Medicine; PCP Nurse Practitioner Family
DX: S40.022A Contusion of left upper arm, initial encounter (principal); S50.12XA Contusion of left forearm, initial encounter; R79.1 Abnormal coagulation profile; I48.0 Paroxysmal atrial fibrillation; I10 Essential (primary) hypertension; E78.5 Hyperlipidemia, unspecified; Z79.01 Long term (current) use of anticoagulants
CPT/HCPCS: 80053; 85025; 85610; 85730; 99283

== ENCOUNTER 2024-04-12 08:14 | Outpatient (CLI) | payer MEDICARE, SELFPAY ==
--- NOTE | 2024-04-12 08:35 | XR_ITS ---
FINAL REPORT CLINICAL HISTORY: Lt shoulder pain FINDINGS: LEFT SHOULDER 3 views of the left shoulder were obtained. There is no acute fracture or dislocation. There are mild degenerative changes. Visualized joint spaces are normally aligned. Soft tissues are unremarkable. IMPRESSION: No acute bony abnormality. Reviewed, Interpreted and Dictated by Audie Vernon MD Transcribed by Roxana Lujan Authenticated and [facility]
== END 2024-04-12 23:59 | disposition home or self-care (01) ==
LOC: RAD 08:17
PROVIDERS: PCP Nurse Practitioner Family; Visit Provider Orthopaedic Surgery
DX: M25.512 Pain in left shoulder (principal)
CPT/HCPCS: 73030

== ENCOUNTER 2024-04-16 12:35 | Outpatient (CLI) | payer MEDICARE, SELFPAY ==
[2024-04-16 14:06] LABS: PHA INR Fingerstick 4.3 (0.9-1.1)
== END 2024-04-16 14:12 ==
LOC: ACC 12:37
PROVIDERS: PCP Nurse Practitioner Family; Visit Provider Nurse Practitioner Family
DX: Z79.01 Long term (current) use of anticoagulants (principal); I48.20 Chronic atrial fibrillation, unspecified
CPT/HCPCS: 85610; 99211; G0463

== ENCOUNTER 2024-04-23 12:47 | Outpatient (CLI) | payer MEDICARE, SELFPAY ==
[2024-04-23 15:30] LABS: PHA INR Fingerstick 1.6 (0.9-1.1)
== END 2024-04-23 15:34 ==
LOC: ACC 12:48
PROVIDERS: PCP Nurse Practitioner Family; Visit Provider Nurse Practitioner Family
DX: Z79.01 Long term (current) use of anticoagulants (principal); I48.20 Chronic atrial fibrillation, unspecified
CPT/HCPCS: 85610; 99211; G0463

== ENCOUNTER 2024-05-03 09:52 | Outpatient (CLI) | payer MEDICARE, SELFPAY ==
[2024-05-03 11:35] LABS: PHA INR Fingerstick 1.5 (0.9-1.1)
== END 2024-05-03 11:37 ==
LOC: ACC 09:53
PROVIDERS: PCP Nurse Practitioner Family; Visit Provider Nurse Practitioner Family
DX: Z79.01 Long term (current) use of anticoagulants (principal); I48.91 Unspecified atrial fibrillation
CPT/HCPCS: 85610; 99211; G0463

== ENCOUNTER 2024-05-28 09:30 | Outpatient (CLI) | payer MEDICARE, SELFPAY ==
[2024-05-28 11:25] LABS: PHA INR Fingerstick 2.6 (0.9-1.1)
== END 2024-05-28 12:55 ==
LOC: ACC 09:32
PROVIDERS: PCP Nurse Practitioner Family; Visit Provider Nurse Practitioner Family
DX: Z79.01 Long term (current) use of anticoagulants (principal); I48.91 Unspecified atrial fibrillation
CPT/HCPCS: 85610; 99211; G0463

== ENCOUNTER 2024-05-31 12:30 | Emergency (ER) | payer MEDICARE, SELFPAY ==
[2024-05-31 12:32] VITALS: BP 126/80; PULSE 75; RESP 18; TEMP 36.5; O2SAT 100; BMI 34.0
[2024-05-31 12:37] VITALS: BP 126/80; PULSE 75; O2SAT 93
--- NOTE | 2024-05-31 12:40 | XR_ITS ---
FINAL REPORT CLINICAL HISTORY: posterior atraumatic pain COMPARISON: 10/04/2020 FINDINGS: LEFT HIP 2 views of the left hip are obtained. There is no acute fracture or dislocation. Visualized joint spaces are normally aligned. There are moderate right and severe left hip degenerative changes. There is no acute soft tissue abnormality. IMPRESSION: No acute bony abnormality. Consider CT if clinical concern persists. Reviewed, Interpreted and Dictated by Salvador Epstein III, MD Transcribed by Roxana Lujan Authenticated and [facility]
--- NOTE | 2024-05-31 12:42 | PC.NURSE ---
DR MOJICA AT BEDSIDE
[2024-05-31 13:01] VITALS: BP 109/67; PULSE 80; O2SAT 98
--- NOTE | 2024-05-31 13:10 | HMH.EDGENADL ---
Discharge Plan Disposition Patient Disposition: Home, Self-Care Prescriptions Prescriptions: New cefdinir 300 mg capsule 300 mg PO BID 10 Days Qty: 20 0RF No Action amlodipine 10 mg tablet 10 mg PO DAILY Qty: 90 1RF metoprolol tartrate 25 mg tablet 25 mg PO BID docusate sodium [Stool Softener] 100 mg capsule 100 mg PO DAILY potassium chloride 20 mEq tablet,ER particles/crystals 20 meq PO DAILY allopurinol 300 mg tablet 300 mg PO DAILY ferrous sulfate 325 mg (65 mg iron) tablet 325 mg PO DAILY hydrochlorothiazide 25 mg tablet 25 mg PO DAILY warfarin 5 mg tablet 5 mg PO DAILY famotidine 20 mg tablet 20 mg PO DAILY Qty: 90 3RF lisinopril 40 mg tablet 40 mg PO DAILY Qty: 90 3RF warfarin 1 mg tablet 1 mg PO DAILY Rx Instructions: take with 5mg tab for a total of 6mg daily oxycodone 5 mg tablet 5 mg PO Q8H PRN (Reason: pain) Qty: 9 0RF Referrals Follow up/Referrals: Khadijah Diaz APRN [Primary Care Provider] - See instructions Activity Restrictions/Add. Instructions Additional Instructions/Restrictions: Call your family doctor to establish care for this visit to the emergency department and schedule follow-up within 48 hours to ensure improvement. If you have any worsening of your condition or any other concerning signs or symptoms, return to the emergency department or your primary care doctor for further evaluation. Clinical Impressions Clinical Impression: UTI (urinary tract infection) Instructions Patient Instructions: DI for Urinary Tract Infection (UTI) Print Language Print Language: Yoruba Discharge ED Provider: Adryan Abreu General Adult HPI General Chief complaint: PAIN Stated complaint: Pain in L hip, no accident Time Seen by Provider: 05/31/24 12:40 Mode of Arrival: Ambulatory Limitations: No Limitations Description of Symptoms (Recalled from ER Triage Doc. by RN): PT C/O LEFT HIP PAIN X 2 WEEKS, BECAME WORSE THIS AM. DOES NOT RADIATE. NO LOSS OF BOWEL OR BLADDER. NO INJURY History of Present Illness HPI narrative: Please note that above description of symptoms, in this electronic medical record under categorization of recalled from ER triage doctor by RN are reflective of an initial nursing assessment, however, is not reflective of my full history and physical exam that was personally taken and clarified. Consequentially, this preceding description of symptoms, which may include the patient's categorized chief complaint in the EMR, do not reflect my personal clinical impression, and the ultimate description of history of present illness and patient stated complaints should be deferred to this section of the note. Unless stated otherwise or congruent with this section of the note, additional signs, symptoms, or incongruence should be interpreted as inaccurate with my clinical impression. Related Data Home Medications ?Medication ?Instructions ?Recorded ?Confirmed metoprolol tartrate 25 mg tablet 25 mg PO BID High blood pressure 01/31/23 05/17/24 warfarin 1 mg tablet 1 mg PO DAILY afib 04/15/23 05/17/24 docusate sodium 100 mg capsule 100 mg PO DAILY 11/08/23 05/17/24 (Stool Softener) potassium chloride 20 mEq 20 meq PO DAILY 02/02/24 05/17/24 tablet,extended release(part/cryst) allopurinol 300 mg tablet 300 mg PO DAILY 04/16/24 05/17/24 ferrous sulfate 325 mg (65 mg 325 mg PO DAILY 04/16/24 05/17/24 iron) tablet hydrochlorothiazide 25 mg tablet 25 mg PO DAILY 04/16/24 05/17/24 warfarin 5 mg tablet 5 mg PO DAILY 04/16/24 05/17/24 Previous Rx's ?Medication ?Instructions ?Recorded amlodipine 10 mg tablet 10 mg PO DAILY Hypertension #90 08/17/22 tabs famotidine 20 mg tablet 20 mg PO DAILY GERD #90 tabs 08/23/23 lisinopril 40 mg tablet 40 mg PO DAILY Hypertension #90 03/29/24 tabs oxycodone 5 mg tablet 5 mg PO Q8H PRN pain #9 tabs 04/10/24 cefdinir 300 mg capsule 300 mg PO BID 10 days #20 caps 05/31/24 Allergies Allergy/AdvReac Type Severity Reaction Status Date / Time No Known Allergies Allergy Verified 05/17/24 08:51 [facility] Disclaimer: The information contained in this section may have been updated after the patient was seen, as this information can be updated by other users. Medical History Bowel obstruction BMI 38.0-38.9,adult Back pain of lumbar region with sciatica Atrial fibrillation Hypertension Healing wound Low sodium levels MRSA (methicillin resistant Staphylococcus aureus) septicemia Carbuncle, neck Leukocytosis Cellulitis, neck Cellulitis and abscess of finger, unspecified Sepsis Atrial fibrillation with rapid ventricular response Acute back pain with sciatica Strain of lumbar region Surgical History H/O colonoscopy 08/2011 @ [facility] Hx of transurethral resection of prostate History of hernia repair 1998 Family History Mother Coronary artery disease Brother Coronary artery disease Hypertension Heart disease Other No significant family history Social History Smoking Status: Former smoker tobacco type: cigarettes alcohol intake: never substance use type: denies use current occupational status: disabled Travel in the last 8 weeks: None household members: family housing: house ROS Obtained: Yes All systems reviewed & no additional complaints except as documented Physical Exam General General appearance: alert Head Head exam: atraumatic and normocephalic Eye Eye exam: Present normal appearance, PERRL and EOMI Neck Neck exam: Present normal inspection, full ROM and trachea midline Respiratory Respiratory exam: Absent respiratory distress, wheezes, stridor, accessory muscle use or prolonged expiratory phase Cardiovascular Cardiovascular exam: Present other (Pulses equal symmetric in upper and lower extremities) Abdominal Exam Abdominal exam: Present soft; Absent distention, tenderness or pulsatile mass Extremities Exam Extremities exam: Absent edema Back Exam Back exam: Present CVA tenderness (L); Absent CVA tenderness (R) Neurological Exam Neurological exam: Present alert, oriented X3, CN II-XII intact and normal gait; Absent motor sensory deficit Skin Skin exam: Present warm and dry; Absent diaphoresis or erythema Medical Decision Making Medical Records Medical records reviewed: Yes I reviewed the patient's medical records. [place] Inquiry Pt receiving controlled substance: No [place] was queried for this patient: No Vital Signs: 05/31/24 12:32 05/31/24 12:37 05/31/24 13:01 Temperature 97.7 F Temperature Source Oral Pulse Rate 75 80 Pulse Rate [Radial] 75 Respiratory Rate 18 Blood Pressure 126/80 109/67 L Blood Pressure [Right Arm] 126/80 Blood Pressure Mean [Right Arm] 95 Blood Pressure Source Blood Pressure Source [Right Arm] Automatic Cuff Blood Pressure Position Blood Pressure Position [Right Arm] Sitting 02 Sat by Pulse Oximetry 100 93 L 98 Oxygen Delivery Method Room Air 05/31/24 13:33 05/31/24 14:00 05/31/24 14:43 Temperature 97.9 F Temperature Source Oral Pulse Rate 92 H 82 88 Pulse Rate [Radial] Respiratory Rate 18 Blood Pressure 121/85 103/65 L 110/77 Blood Pressure [Right Arm] Blood Pressure Mean [Right Arm] Blood Pressure Source Automatic Cuff Blood Pressure Source [Right Arm] Blood Pressure Position Sitting Blood Pressure Position [Right Arm] 02 Sat by Pulse Oximetry 97 98 Oxygen Delivery Method Room Air Lab Data Lab Results 05/31/24 13:30: Urine Color Yellow, Urine Appearance Cloudy, Urine pH 6.0, Ur Specific [place] 1.025, Urine Protein Trace, Urine Glucose (UA) Negative, Urine Ketones Negative, Urine Blood Trace-i, Urine Nitrate Positive, Urine Bilirubin 1+ A, Urine Urobilinogen 1.0, Ur Leukocyte Esterase 2+ A, Urine RBC Occasional, Urine WBC 5-10, Ur Squamous Epith Cells Occasional, Urine Bacteria 1+ Orders (Tests/Meds): ED MEDICATIONS Discontinued Medications Generic Name Dose Route Start Last Admin Trade Name Freq PRN Reason Stop Dose Admin Cefdinir 300 mg 05/31/24 14:04 05/31/24 14:12 Cefdinir 300mg Capsule PO 05/31/24 14:05 300 mg ONCE ONE Administration Lidocaine 1 each 05/31/24 12:46 05/31/24 13:15 Lidocaine 5% Transdermal Patch TP 05/31/24 12:47 1 each ONCE ONE Administration Prednisone 40 mg 05/31/24 12:46 05/31/24 13:13 Prednisone 20mg Tab PO 05/31/24 12:47 40 mg ONCE ONE Administration ORDERS Category Date Time Status CT abdomen pelvis wo con Stat Cat Scan 05/31/24 14:04 Taken Hip XR left minimum 2 views [XR hip LT 2-3V w/pelvis] Exams 05/31/24 12:40 Completed Stat UA [Urinalysis and Microscopic] Stat Lab 05/31/24 13:30 Completed Urine Culture Stat Micro 05/31/24 13:30 Received Medical Decision Narrative: 83-year-old male no relevant medical history presenting with left hip/flank pain. States that has been going on for the past couple of days, got worse through today. Came in for further evaluation. No trauma, bowel or bladder dysfunction, weakness, has not taken anything for the pain. Ambulatory, but causes pain especially with changes in position. 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 History was obtained via conversation with patient. On arrival, patient hemodynamically stable, alert, [oriented x4, ][appropriate, ]GCS [15], moving all extremities spontaneously, pupils equal and reactive to light. Full physical exam performed and significant for [Other relevant findings/NIHSS]. Differential includes []. Patient placed on continuous cardiac monitoring and continuous pulse ox with initial blood pressure [], heart rate [], saturation []. [Independent interpretation of EKG shows] []. Patient was given [] for symptomatic management[ and correction of underlying abnormalities]. Workup independently interpreted and significant for []. On independent interpretation of imaging, []. See radiology read for full review of final results. [Nexus/Prydeinig CT head/heart/[id number]/Wells/PERC/Age adjusted/YEARS/MELD]. [] was considered, but deemed unnecessary due to []. On reevaluation, [additional tests/treatment]. [Consultants] [obs] Given patient presentation, workup, history, this most likely represents []. Less likely []. [SDH] Material Analyst disclaimer Much of this encounter note is an electronic physician neonatology spoken language to printed text. Electronic physician neonatology of the spoken language may permit errors. Although I have reviewed the note, some errors may still exist. Critical Care Critical Care Time Critical Care Time: No
[2024-05-31] MEDS: predniSONE 20MG TAB 40 MG PO (13:13)
[2024-05-31] MEDS: LIDOCAINE 5% TRANSDERMAL PATCH 1 EACH TP (13:15)
--- NOTE | 2024-05-31 13:18 | PC.NURSE ---
Pt gone to RAD via wheelchair
--- NOTE | 2024-05-31 13:24 | PC.NURSE ---
PT returned from RAD
[2024-05-31 13:33] VITALS: BP 121/85; PULSE 92; O2SAT 97
[2024-05-31 13:34] LABS: Microscopic, Urine URINE MICROSCOPIC (MICROSCOPIC)
[2024-05-31 13:40] LABS: Appearance,Urine CLOUDY (Clear); Blood, Urine TRACE-I (Negative); Color,Urine YELLOW (Yellow); Glucose,Urine (UA) Negative (Negative); Ketones,Urine Negative (Negative); Leukocyte Esterase,Urine 2+ (Negative); Nitrate,Urine POSITIVE (Negative); Protein,Urine TRACE (Negative); Specific Gravity, Urine 1.025 (1.005-1.030)
[2024-05-31 13:52] LABS: Bilirubin,Urine 1+ (Negative)
[2024-05-31 14:00] VITALS: BP 103/65; PULSE 82; O2SAT 98
--- NOTE | 2024-05-31 14:04 | CT_ITS ---
FINAL REPORT TECHNIQUE: Axial images through the abdomen and pelvis were performed without contrast.This study was performed with techniques to keep radiation doses as low as reasonably achievable, (ALARA). Individualized dose reduction techniques using automated exposure control or adjustment of mA and/or kV according to the patient's size were employed. CLINICAL HISTORY: L flank pain and hematuria COMPARISON: 04/16/2023 FINDINGS: ABDOMEN: The lung bases reveal mild atelectasis. There are moderate vascular calcifications. The heart size is enlarged. Limited images of the liver are unremarkable. The spleen is normal. No adrenal mass is identified. The aorta is normal in caliber. There is no significant free fluid or adenopathy. There is a small mass in the lower pole of the right kidney measuring 12 mm which is stable from prior exam and likely a cyst. No follow-up recommended. There is no renal stone or hydronephrosis identified. PELVIS: The appendix is normal. There is urinary bladder wall thickening which is likely inflammatory. Prostate is enlarged. There is a small left inguinal hernia containing fat. There is no significant free fluid or adenopathy. Severe degenerative changes are noted of the left hip. IMPRESSION: Small, stable mass in the left kidney, likely a cyst. No follow-up recommended. Urinary bladder wall thickening which is likely inflammatory. Enlarged prostate. Reviewed, Interpreted and Dictated by Salvador Epstein III, MD Transcribed by Roxana Lujan Authenticated and [facility]
[2024-05-31 14:08] LABS: Bacteria,Urine 1+ /lpf; RBC,Urine Occasional #/hpf (0-3); Squamous Epithelial Cell,Urine Occasional #/hpf (0-5)
--- NOTE | 2024-05-31 14:11 | PC.NURSE ---
Pt gone to RAD
[2024-05-31] MEDS: CEFDINIR 300MG CAPSULE 300 MG PO (14:12)
[2024-05-31 14:43] VITALS: BP 110/77; PULSE 88; RESP 18; TEMP 36.6; O2SAT 99
== END 2024-05-31 14:46 | disposition home or self-care (01) ==
PROVIDERS: Emergency Provider Emergency Medicine; PCP Nurse Practitioner Family
DX: N39.0 Urinary tract infection, site not specified (principal); B96.89 Other specified bacterial agents as the cause of diseases classified elsewhere; M25.552 Pain in left hip
CPT/HCPCS: 73502; 74176; 81001; 87086; 99284

== ENCOUNTER 2024-06-26 09:27 | Outpatient (CLI) | payer MEDICARE, SELFPAY ==
[2024-06-26 10:30] LABS: PHA INR Fingerstick 3.6 (0.9-1.1)
== END 2024-06-26 10:36 ==
LOC: ACC 09:33
PROVIDERS: PCP Nurse Practitioner Family; Visit Provider Nurse Practitioner Family
DX: Z79.01 Long term (current) use of anticoagulants (principal); I48.20 Chronic atrial fibrillation, unspecified
CPT/HCPCS: 85610; 99211; G0463

== ENCOUNTER 2024-07-10 09:33 | Outpatient (CLI) | payer MEDICARE, SELFPAY ==
[2024-07-10 13:06] LABS: PHA INR Fingerstick 2.8 (0.9-1.1)
== END 2024-07-10 13:44 ==
LOC: ACC 09:34
PROVIDERS: PCP Nurse Practitioner Family; Visit Provider Nurse Practitioner Family
DX: Z79.01 Long term (current) use of anticoagulants (principal); I48.20 Chronic atrial fibrillation, unspecified
CPT/HCPCS: 85610; 99211; G0463

== ENCOUNTER 2024-08-16 08:58 | Outpatient (CLI) | payer MEDICARE, SELFPAY | END 2024-08-16 23:59 | disposition home or self-care (01) | LOC: LAB 11-24 16:25 | PROVIDERS: PCP Nurse Practitioner Family; Visit Provider Nurse Practitioner Family | DX: E55.9 Vitamin D deficiency, unspecified (principal) | CPT/HCPCS: 80053; 80061; 81001; 82306; 82607; 82728; 83036; 83540; 83550; 84156; 84439; 84443; 84550; 85025; 87086; 87389; G0103 ==

== ENCOUNTER 2024-08-16 10:24 | Outpatient (CLI) | payer MEDICARE, SELFPAY ==
[2024-08-16 13:49] LABS: PHA INR Fingerstick 2.5 (0.9-1.1)
[2024-08-16 16:05] LABS: Microscopic, Urine URINE MICROSCOPIC (MICROSCOPIC)
[2024-08-16 16:17] LABS: Basophils # 0.1 K/mm3 (0-0.2); Basophils % 0.5 % (0.1-2.0); Eosinophils # 0.1 K/mm3 (0.0-0.4); Eosinophils % 1.3 % (0.1-12.0); Hematocrit 40.5 % (42.0-52.0); Hemoglobin 13.5 g/dL (14.1-18.0); Lymphocytes # 1.8 K/mm3 (0.7-4.5); Lymphocytes % 17.7 % (10-50); Mean Corpuscular HGB Conc 33.2 g/dL (31.8-35.4); Mean Corpuscular Hemoglobin 33.6 pg (27.0-31.2); Mean Corpuscular Volume 101.2 fl (80-94); Mean Platelet Volume 9.8 fl (7.4-10.4); Monocytes # 0.5 K/mm3 (0.1-1.0); Neutrophils # 7.6 K/mm3 (1.8-7.8); Neutrophils % 75.5 % (37.0-80.0); Platelet Count 204 K/mm3 (142-424); Red Cell Distribution Width 14.2 % (11.5-17.5); White Blood Count 10.1 K/mm3 (4.8-10.8)
[2024-08-16 16:26] LABS: Appearance,Urine CLEAR (Clear); Bilirubin,Urine Negative (Negative); Blood, Urine Negative (Negative); Color,Urine YELLOW (Yellow); Glucose,Urine (UA) Negative (Negative); Ketones,Urine Negative (Negative); Leukocyte Esterase,Urine Negative (Negative); Nitrate,Urine Negative (Negative); Protein,Urine Negative (Negative)
[2024-08-16 16:39] LABS: Bacteria,Urine 4+ /lpf; RBC,Urine Occasional #/hpf (0-3); Squamous Epithelial Cell,Urine Occasional #/hpf (0-5); WBC,Urine 20-50 #/hpf (0-3)
[2024-08-16 16:40] LABS: Alanine Aminotransferase 14 U/L (12-78); Albumin/Globulin Ratio 1.3 (1.1-1.8); Alkaline Phosphatase 129 U/L (38-126); Anion Gap 10.9 mEq/L (5-15); Aspartate Amino Transferase 24 U/L (17-59); Bilirubin,Total 0.9 mg/dl (0.2-1.3); Blood Urea Nitrogen 17 mg/dl (9-20); Calcium 9.5 mg/dl (8.4-10.2); Carbon Dioxide 27 mmol/L (22.0-30.0); Chloride 106 mmol/L (98-107); Chol/HDL Ratio 5.1 (1-3.5); Cholesterol 168 mg/dl (140-200); Estimated Glomerular Filt Rate 92 ml/min (>60); GFR (African American) 112 ML/MIN (>60); Glucose 90 mg/dl (74-100); HDL Cholesterol 33 mg/dl (40-60); Potassium 4.9 mmoL/L (3.5-5.1); Sodium 139 mmol/L (136-145); Triglycerides 104 mg/dl (30-150); Uric Acid 4.7 mg/dl (3.5-8.5); VLDL Cholesterol 21 mg/dL (0-40)
[2024-08-16 16:51] LABS: Direct LDL Cholesterol 121.77 mg/dL (100-129)
[2024-08-16 16:56] LABS: Free T4 (Free Thyroxine) 1.22 ng/dl (0.78-2.19)
[2024-08-16 16:58] LABS: 25-OH Vitamin D, Total 26.5 ng/mL (30-100)
[2024-08-16 17:11] LABS: Thyroid Stimulating Hormone 3.09 uIU/mL (0.465-4.68)
[2024-08-16 17:30] LABS: Vitamin B12 224 pg/mL (239-931)
[2024-08-16 17:45] LABS: Iron 108 ug/dL (49-181)
[2024-08-16 17:55] LABS: Total Iron Binding Capacity 266 ug/dL (261-462)
[2024-08-16 18:21] LABS: Ferritin 298 ng/ml (17.9-464)
[2024-08-16 19:17] LABS: HIV (1&2) Antibody Rapid NONREACTIVE (NONREACTIVE)
[2024-08-17 05:56] LABS: HCV Ab Non Reactive (Non Reactive)
== END 2024-08-16 14:02 ==
LOC: ACC 10:24
PROVIDERS: PCP Nurse Practitioner Family; Visit Provider Nurse Practitioner Family
DX: Z79.01 Long term (current) use of anticoagulants (principal); R53.83 Other fatigue; Z13.1 Encounter for screening for diabetes mellitus; D64.9 Anemia, unspecified; I10 Essential (primary) hypertension; Z12.5 Encounter for screening for malignant neoplasm of prostate; Z68.41 Body mass index [BMI] 40.0-44.9, adult; I48.91 Unspecified atrial fibrillation; E66.01 Morbid (severe) obesity due to excess calories
CPT/HCPCS: 80053; 80061; 81001; 82306; 82607; 82728; 83036; 83540; 83550; 84156; 84439; 84443; 84550; 85025; 85610; 86803; 87086; 87088; 87389; 99211; G0103; G0463

== ENCOUNTER 2024-09-27 09:25 | Outpatient (CLI) | payer MEDICARE, SELFPAY ==
[2024-09-27 15:30] LABS: PHA INR Fingerstick 2.1 (0.9-1.1)
== END 2024-09-27 15:39 ==
LOC: ACC 09:25
PROVIDERS: PCP Nurse Practitioner Family; Visit Provider Nurse Practitioner Family
DX: Z79.01 Long term (current) use of anticoagulants (principal)
CPT/HCPCS: 85610; 99211; G0463

== ENCOUNTER 2024-11-01 09:38 | Outpatient (CLI) | payer MEDICARE, SELFPAY ==
[2024-11-01 11:57] LABS: PHA INR Fingerstick 2.9 (0.9-1.1)
== END 2024-11-01 12:07 ==
LOC: ACC 09:40
PROVIDERS: PCP Nurse Practitioner Family; Visit Provider Nurse Practitioner Family
DX: Z79.01 Long term (current) use of anticoagulants (principal); I48.20 Chronic atrial fibrillation, unspecified
CPT/HCPCS: 85610; 99211; G0463

== ENCOUNTER 2024-11-15 09:24 | Outpatient (CLI) | payer MEDICARE, SELFPAY ==
[2024-11-15 11:08] LABS: PHA INR Fingerstick 3.2 (0.9-1.1)
== END 2024-11-15 11:22 ==
LOC: ACC 09:25
PROVIDERS: PCP Nurse Practitioner Family; Visit Provider Nurse Practitioner Family
DX: Z79.01 Long term (current) use of anticoagulants (principal); I48.20 Chronic atrial fibrillation, unspecified
CPT/HCPCS: 85610; 99211; G0463

== ENCOUNTER 2024-12-03 08:59 | Outpatient (CLI) | payer MEDICARE, SELFPAY ==
[2024-12-03 12:11] LABS: PHA INR Fingerstick 1.7 (0.9-1.1)
== END 2024-12-03 12:13 ==
LOC: ACC 09:00
PROVIDERS: PCP Nurse Practitioner Family; Visit Provider Nurse Practitioner Family
DX: Z79.01 Long term (current) use of anticoagulants (principal); I48.20 Chronic atrial fibrillation, unspecified
CPT/HCPCS: 85610; 99211; G0463

== ENCOUNTER 2024-12-24 09:32 | Outpatient (CLI) | payer MEDICARE, SELFPAY | END 2024-12-24 14:12 | LOC: ACC 09:33 | PROVIDERS: PCP Nurse Practitioner Family; Visit Provider Nurse Practitioner Family | DX: I48.91 Unspecified atrial fibrillation (principal); Z79.01 Long term (current) use of anticoagulants | CPT/HCPCS: 85610; 99211; G0463 ==

== ENCOUNTER 2025-01-21 08:39 | Outpatient (CLI) | payer MEDICARE, SELFPAY ==
[2025-01-21 10:28] LABS: PHA INR Fingerstick 1.7 (0.9-1.1)
== END 2025-01-21 10:36 ==
LOC: ACC 08:40
PROVIDERS: PCP Nurse Practitioner Family; Visit Provider Nurse Practitioner Family
DX: Z79.01 Long term (current) use of anticoagulants (principal); I48.91 Unspecified atrial fibrillation
CPT/HCPCS: 85610; 99211; G0463

== ENCOUNTER 2025-02-18 08:56 | Outpatient (CLI) | payer MEDICARE, SELFPAY ==
--- OUTSIDE RECORDS SUMMARY | 2025-02-18 08:57 | XMS_ITS | Data Portability ---
Author Organization [place] - [facility] - [facility] SREEKANTH ADMIN Address [address] [place] [id number] Assessment No assessment recorded. Plan of Treatment Reminders Order Date Submit Date Provider Last Modified By Organization Details Last Modified Time Details Appointments None recorded. Lab PT/INR 2021 022 hloeffler 1 [facility], [address] [facility], [address], [place], [address], 2 09:56:25 Referral None recorded. Procedures None recorded. Surgeries None recorded. Imaging None recorded. Medication Orders lisinopril 40 mg tablet 2022 023 [facility], [address] [place], [address], 3 11:24:35 metoprolol tartrate 25 mg tablet 2022 023 [facility], [address] [place], [address], 3 11:24:36 amlodipine 10 mg tablet 2022 023 [facility], [address] [place], [address], 3 11:24:36 Patient TargetsNo targets recorded. Patient InstructionsNo instructions recorded. Reason for Referral None Reported. Results Created Date Observation Date Name Description Value Unit Range Abnormal Flag Note LastModifiedBy Organization Detail LastModifiedTime 07/12/20 22 07/12/2022 PT/IN R Prothrombin 2.4 Not Available [facility] [address] [facility] [address], [place], [address], 07/12/2022 09:39:59 Result Notes None recorded. Problems Name Problem SNOMED Code Status Onset Date Resolution Date Notes Provider Name and Address Organization Details Recorded Time Screening for malignant neoplasm of colon Active 2010 [facility] Mcfadden [facility] & [place] 2 11:16:39 Hypertensiv e disorder 20820630 Active [facility] Mc[facility]adden [facility] & [place] 2 11:16:39 Idiopathic osteoarthri tis 016139272 Active Yandy rider, NAVYA [facility] & [place] 2 11:16:39 Essential hypertensio n 96030601 Active Yandy rider, NAVYA [facility] & [place] 2 11:16:39 Patient encounter status 848346934 Active NAVYA Mcfadden - [facility] - [place] & [place] 2 11:16:39 Acute prostatitis 50820983 Active 2003 Yandy rider, NAVYA - [facility] - [place] & [place] 2 11:16:39 General examination of patient Active 2010 NAVYA Mcfadden - [facility] - [place] & [place] 2 11:16:39 Pain of joint of pelvis and/or upper leg 683302009 Active 2011 NAVYA Mcfadden - [facility] - [place] & [place] 2 11:16:39 Sprain pelvic ligament 127873344 Active 2010 Yandy rider, NAVYA - [facility] - [place] & [place] 2 11:16:39 Open wound of neck 705487905 Active Yandy rider, NAVYA - [facility] - [place] & [place] 2 11:16:39 Screening for malignant neoplasm of prostate Active 2010 Yandy rider, NAVYA - [facility] & [place] 2 11:16:39 Benign essential hypertensio n 1562965 Active 2008 NAVYA Mcfadden [facility] - [place] & [place] 2 11:16:39 Needs influenza immunizatio n 170719851 Active 2010 NAVYA Mcfadden - [facility] - [place] & [place] 2 11:16:39 Acute arthritis 73439772 Active NAVYA Mcfadden [facility] - [place] & [place] 2 11:16:39 Therapeutic drug level - finding 817190704 Active NAVYA Mcfadden [facility] - [place] & [place] 2 11:16:39 Atrial fibrillatio n 03854484 Active NAVYA Mcfadden [facility] - [facility] & [place] 2 11:16:39 Chronic pain 39624008 Active NAVYA Mcfadden [facility] - [place] & [place] 2 11:16:39 Shoulder joint pain 817446821 Active 2011 NAVYA Mcfadden [facility] - [place] & [place] 2 11:16:39 Long-term current use of anticoagula nt 235390519 Active NAVYA Mcfadden [facility] - [place] & [place] 2 11:16:39 Chronic back pain greater than three months duration 662454152025 Active NAVYA Mcfadden [facility] - [place] & [place] 2 11:16:39 Inguinal pain 868757983 Active NAVYA Mcfadden [facility] - [place] & [place] 2 11:16:39 Chronic atrial fibrillatio n 437134712 Active NAVYA Mcfadden [facility] - [place] & [place] 2 11:16:39 Rupture of tendon of biceps, long head 11844058 Active 2011 [facility]add[facility] & [place] 2 11:16:39 Problem Notes None recorded. Medical Equipment None Reported. Allergies No known drug allergies Medications Name Sig Start Date Stop Date Status Note LastModified by Organization Details LastModified Time iron 65mg tab TAKE 1 TABLET BY MOUTH ONCE DAILY 09/01 completed Not Available Not Available Not Available potassium chloride ER 20 mEq tablet,exte nded release(par t/cryst) TAKE 1 TABLET BY MOUTH ONCE DAILY active Not Available Not Available No t Available famotidine 20 mg tablet TAKE 1 TABLET BY MOUTH ONCE DAILY FOR GERD active Not Available Not Available No t Available amlodipine 10 mg tablet Take 1 tablet by mouth once daily for 90 days 2023 active Not Available Not Available Not Avai lable ferrous sulfate 325 mg (65 mg iron) tablet TAKE 1 TABLET BY MOUTH ONCE DAILY active Not Available Not Available No t Available warfarin 5 mg tablet TAKE 1 TABLET BY MOUTH ONCE DAILY WITH A 1MG TABLET FOR A TOTAL OF 6MG DAILY active Not Available Not Available No t Available docusate sodium 100 mg capsule TAKE 1 CAPSULE BY MOUTH ONCE DAILY active Not Available Not Available No t Available allopurinol 300 mg tablet TAKE 1 TABLET BY MOUTH ONCE DAILY FOR GOUT active Not Available Not Available No t Available hydrochloro thiazide 25 mg tablet TAKE 1 TABLET BY MOUTH ONCE DAILY FOR EDEMA active Not Available Not Available No t Available warfarin 1 mg tablet TAKE 1 TABLET BY MOUTH ONCE DAILY WITH THE 5 MG TABLET DIRECTED active Not Available Not Available No t Available lisinopril 40 mg tablet Take 1 tablet by mouth once daily for 90 days 2023 active Not Available Not Available Not Avai lable cefdinir 300 mg capsule TAKE 1 CAPSULE BY MOUTH TWICE DAILY FOR 7 DAYS 09/01 completed Not Available Not Available Not Available metoprolol tartrate 25 mg tablet Take 1 tablet by mouth twice daily active Not Available Not Available No t Available nitrofurant oin monohydrate /macrocryst als 100 mg capsule TAKE 1 CAPSULE BY MOUTH EVERY 12 HOURS WITH MEAL/FOOD FOR 7 DAYS FOR UTI 09/01 completed Not Available Not Available Not Available Voltaren 1 % topical gel active Not Available Not Available Not Available potassium chloride ER 20 mEq tablet,exte nded release TAKE 1 TABLET BY MOUTH ONCE DAILY FOR SUPPLEMEN T active Not Available Not Available No t Available Vitals Date Recorded Body height Body mass index (BMI) Body weight Provider Name and Address Organization Details Last Updated DateTime 07/12/2022 182.88 cm 32.3 kg/m2 002688.42 g Trey MENDOSA [facility] & [place] 07/12/2022 09:38:12 Date Recorded Body height Body mass index (BMI) Body weight Oxygen saturation Oxygen saturation in Arterial blood by Pulse oximetry Heart rate Systolic blood pressure Diastolic blood pressure Provider Name and Address Organization Details Last Updated DateTime 3 182.88 cm 33.6 kg/m2 199877. 91 g 95 % 95 % 76 /min 124 mm[Hg] 82 mm[Hg] America MENDOSA [facility] & [place] 3 10:38:49 Date Recorded Body height Body mass index (BMI) Body weight Oxygen saturation Oxygen saturation in Arterial blood by Pulse oximetry Heart rate Systolic blood pressure Diastolic blood pressure Provider Name and Address Organization Details Last Updated DateTime 3 182.88 cm 33.9 kg/m2 597405. 09 g 96 % 96 % 78 /min 122 mm[Hg] 84 mm[Hg] America MENDOSA [facility] & [place] 3 09:31:55 Date Recorded Body height Body mass index (BMI) Body weight Oxygen saturation Oxygen saturation in Arterial blood by Pulse oximetry Heart rate Systolic blood pressure Diastolic blood pressure Provider Name and Address Organization Details Last Updated DateTime 2 182.88 cm 32.1 kg/m2 163817. 6 g 99 % 99 % 70 /min 126 mm[Hg] 76 mm[Hg] Yandy Carpenter [facility] & [place] 2 11:17:37 Social History Question Answer Notes LastModified by Organizat ion Details LastModified Time Tobacco Smoking Status Never Smoker Trey Everidge [facility] & [place] 07/12/2022 09:39:47 What Is Your Level Of Alcohol Consumption? None Information not available 07/12/2022 Do You Use Any Illicit Or Recreational Drugs? No Information not available 07/12/2022 Do You Or Have You Ever Used Any Other Forms Of Tobacco Or Nicotine? No Information not available 07/12/2022 Sex: Unknown Functional Status None recorded. Mental Status None recorded. Family History Nothing Reported Notes:Mother: , diag nosed with CAD Father: Brother #1: alive, CAD Positive for hypertension and heart disease Medical History No medical history recorded. Immunizations Vaccine Type Date Status Note Provider Nam e and Address Organization Details Recorded Time Influenza, high-dose, trivalent, PF 9 completed Yandy Carpenter tereso, NAVYA - [facility] & [place] 09/01/2022 11:16:39 Influenza, high-dose, trivalent, PF 8 completed Yandy Carpenter null, NAVYA - [facility] & [place] 09/01/2022 11:16:39 Influenza, split virus, trivalent, PF 1 completed Yandy Carpenter null, NVAYA - [facility] & [place] 09/01/2022 11:16:39 pneumococcal polysaccharide PPV23 7 completed Yandy rider, NAVYA - [facility] & [place] 09/01/2022 11:16:39 Hep A, adult 8 completed Yandy rider, NAVYA - [facility] & [place] 09/01/2022 11:16:39 Influenza, split virus, trivalent, preservative 7 completed Yandy Carpenter tereso, NAVYA - [facility] & [place] 09/01/2022 11:16:39 Influenza, split virus, trivalent, PF 7 completed Yandy Carpenter te[place], [place] - [facility] & [place] 09/01/2022 11:16:39 Pneumococcal conjugate PCV 13 8 completed Yandy rider, NAVYA - [facility] & [place] 09/01/2022 11:16:39 Past Encounters Encounter ID Performer Location Encounter Start Date Encounter Closed Date Diagnosis/Indication Diagnosis SNOMED-CT Code Diagnosis ICD10 Code Diagnosis Note [id number] Min Sheets MD [place] [address] [facility] [address] [place] [address] 07/12/2022 08:44:12 07/12/2022 09:26:37 Long-term current use of anticoagulant 995254181 Z79.01 [id number] Javier Mac MD [facility] [address] [facility] [address] [place] [address] 09/01/2022 10:44:38 09/01/2022 11:37:35 Benign essential hypertension 2183891 I10 Continue current medication . Keep log Low-salt diet < 2 gm Na/day, Regular exercise Weight loss Chronic at rial fibrillation 968745803 I48.20 No palpitatio ns. Chronic, rate well controlled .LVEF 50-55%cont Lopressorc hads vasc score 3 HTN, age- cont Coumadin. [id number] Javier Mac MD [facility] [address] [facility] [address] [place] [id number] 03/11/2023 09:48:53 03/11/2023 14:26:24 Chronic atrial fibrillation 616369084 I48.20 Chronic, rate well controlled .LVEF 50-55%cont Lopressor Chads vasc score 3 HTN, age- cont Coumadin. Benign ess ential hypertension 5397593 I10 blood pressure well controlled .Continue current medication .Keep logLow-carlos t diet < 2 gm Na/day,Reg ular exerciseWe ight loss [id number] Javier Mac MD [facility] [address] [facility] [address] [place] [address] 09/26/2023 08:43:02 09/26/2023 09:58:58 Benign essential hypertension 5952376 I10 blood pressure well controlled .Continue current medication .Keep logLow-carlos t diet < 2 gm Na/day,Reg ular exerciseWe ight loss Chronic at rial fibrillation 021628301 I48.20 Chronic, rate well controlled .LVEF 50-55%cont Lopressor Chads vasc score 3 HTN, age- He is on Coumadin followed by PCP Health Concerns Section Related Observation LastModified by Organization Detai ls LastModified Time None Recorded Concern Status LastModified by Organization Details LastModified Time None Recorded Advance Directives Directive None Recorded Payers Encounter Date Sequence Insurance Name Policy Number Policy Lorenz Covered Member ID Lorenz Member ID Guarantor Name 07/12/2022 1 [employer] (MEDICARE REPLACEMENT/ ADVANTAGE - PPO) Dave Medeiros [id number] Daveomar Medeiros 09/01/2022 1 [employer] (MEDICARE REPLACEMENT/ ADVANTAGE - PPO) Daveomar Medeiros [id number] Dave Waldemar 03/11/2023 1 [employer] (MEDICARE REPLACEMENT/ ADVANTAGE - PPO) Dave Medeiros [id number] Dave Medeiros 09/26/2023 1 [employer] (MEDICARE REPLACEMENT/ ADVANTAGE - PPO) Dave Medeiros [id number] Dave Medeiros Notes Date Note Type Note Provider Name and Address Organization Details Recorded Time 09/01/2022 text/html Mr. Medeiros is seen in follow up today for atrial fibrillation/HTNPCP: Dr Pappas specific cardiovascular complaints today. No chest pain, shortness of breath, PND, orthopnea, peripheral edema, palpitations, presyncope, syncope+h/o atrial fibrillation since 04/2013, Chronic. he is on Coumadin followed by PCP+ HTN- well controlled+ Obesity- BMI 34 , limited of ambulation walks with a walker+ edema- well controlled on HCTZECHO 08/07 : LVEF 50-55%, Mod BRODERICK, PASP 36%. Javier Mac MD [address], [place], [address], [facility] & [place] 09/01/2022 12:24:38 03/11/2023 text/html Mr. Medeiros is seen in follow up today for atrial fibrillation/HTNPCP: Dr Suresh No CV complaints todayNo chest pain, shortness of breath, PND, orthopnea, peripheral edema, palpitations, presyncope, syncope +h/o atrial fibrillation since 04/2013, Chronic. he is on Coumadin followed by PCP+ HTN- well controlled+ Obesity- BMI 34 , limited of ambulation walks with a walker+ edema- well controlled on HCTZ ECHO 08/07 : LVEF 50-55%, Mod BRODERICK, PASP 36%. Javier Mac MD [address] , [place], [address], [facility] & [place] 03/11/2023 11:24:50 09/26/2023 text/html 82F is seen in follow up today for atrial fibrillation/HTNPCP: Khadijah Newell specific cardiovascular complaints today. No chest pain, shortness of breath, PND, orthopnea, peripheral edema, palpitations, presyncope, syncope+h/o atrial fibrillation since 04/2013, denies palpitations+ HTN- well controlled+ Obesity- BMI 34 , limited of ambulation walks with a walker+ edema- well controlled on HCTZ ECHO 08/07 : LVEF 50-55%, Mod BRODERICK, PASP 36%. Javier Mac MD [address], [place], [address], [facility] - [place] & [place] 09/26/2023 16:59:13
[2025-02-18 09:43] LABS: PHA INR Fingerstick 1.9 (0.9-1.1)
== END 2025-02-18 09:45 ==
LOC: ACC 08:56
PROVIDERS: PCP Nurse Practitioner Family; Visit Provider Nurse Practitioner Family
DX: Z79.01 Long term (current) use of anticoagulants (principal); I48.91 Unspecified atrial fibrillation
CPT/HCPCS: 85610; 99211; G0463

== ENCOUNTER 2025-04-01 09:24 | Outpatient (CLI) | payer MEDICARE, SELFPAY ==
--- OUTSIDE RECORDS SUMMARY | 2025-04-01 09:29 | XMS_ITS | Data Portability ---
Author Organization [place] - [facility] - [facility] SREEKANTH ADMIN Address [address] [place] [address] Assessment No assessment recorded. Plan of Treatment Reminders Order Date Submit Date Provider Last Modified By Organization Details Last Modified Time Details Appointments None recorded. Lab PT/INR 2021 022 hloeffler 1 G[facility], [address] [facility], [address], [place], [address], 2 09:56:25 Referral None recorded. Procedures None recorded. Surgeries None recorded. Imaging None recorded. Medication Orders lisinopril 40 mg tablet 2022 023 [facility] 5[facility], [address] [place], [address], 3 11:24:35 metoprolol tartrate 25 mg tablet 2022 023 [facility] 591, [address] [place], [address], 3 11:24:36 amlodipine 10 mg tablet 2022 023 [facility] 591, [address] [place], [address], 3 11:24:36 Patient TargetsNo targets recorded. Patient InstructionsNo instructions recorded. Reason for Referral None Reported. Results Created Date Observation Date Name Description Value Unit Range Abnormal Flag Note LastModifiedBy Organization Detail LastModifiedTime 07/12/20 22 07/12/2022 PT/IN R Prothrombin 2.4 Not Available [facility] [address] [facility] [address], [place], [address], 07/12/2022 09:39:59 Result Notes None recorded. Problems Name Problem SNOMED Code Status Onset Date Resolution Date Notes Provider Name and Address Organization Details Recorded Time Screening for malignant neoplasm of colon Active 2010 NAVYA Mcfadden - [facility] & [place] 2 11:16:39 Hypertensiv e disorder 06065680 Active NAVYA Mcfadden - [facility] & [place] 2 11:16:39 Idiopathic osteoarthri tis 748403722 Active Yandy rider, NAVYA - [facility] & [place] 2 11:16:39 Essential hypertensio n 81975460 Active Yandy rider, NAVYA - [facility] & [place] 2 11:16:39 Patient encounter status 908862990 Active NAVYA Mcfadden - [facility] - [place] & [place] 2 11:16:39 Acute prostatitis 59486899 Active 2003 Yandy rider, NAVYA - [facility] - [place] & [place] 2 11:16:39 General examination of patient Active 2010 NAVYA Mcfadden - [facility] - [place] & [place] 2 11:16:39 Pain of joint of pelvis and/or upper leg 453723601 Active 2011 NAVYA Mcfadden - [facility] - [place] & [place] 2 11:16:39 Sprain pelvic ligament 524128095 Active 2010 Yandy rider, NAVYA - [facility] - [place] & [place] 2 11:16:39 Open wound of neck 830623122 Active Yandy rider, NAVYA - [facility] - [place] & [place] 2 11:16:39 Screening for malignant neoplasm of prostate Active 2010 Yandy rider, NAVYA - [facility] & [place] 2 11:16:39 Benign essential hypertensio n 8930137 Active 2008 NAVYA Mcfadden [facility] - [place] & [place] 2 11:16:39 Needs influenza immunizatio n 153760598 Active 2010 NAVYA Mcfadden - [facility] - [place] & [place] 2 11:16:39 Acute arthritis 44896416 Active NAVYA Mcfadden [facility] - [place] & [place] 2 11:16:39 Therapeutic drug level - finding 687279444 Active NAVYA Mcfadden [facility] - [place] & [place] 2 11:16:39 Atrial fibrillatio n 91266803 Active NAVYA Mcfadden [facility] - [facility] & [place] 2 11:16:39 Chronic pain 12387050 Active NAVYA Mcfadden [facility] - [place] & [place] 2 11:16:39 Shoulder joint pain 839846769 Active 2011 NAVYA Mcfadden [facility] - [place] & [place] 2 11:16:39 Long-term current use of anticoagula nt 052118973 Active NAVYA Mcfadden [facility] - [place] & [place] 2 11:16:39 Chronic back pain greater than three months duration 951190505766 Active NAVYA Mcfadden LP[facility] - [place] & [place] 2 11:16:39 Inguinal pain 171262960 Active NAVYA Mcfadden [facility] - [place] & [place] 2 11:16:39 Chronic atrial fibrillatio n 903695344 Active NAVYA Mcfadden [facility] - [place] & [place] 2 11:16:39 Rupture of tendon of biceps, long head 52229431 Active 2011 NAVYA Mcfadden [facility] & [place] 2 11:16:39 Problem Notes None recorded. Medical [...] Updated DateTime 3 182.88 cm 33.6 kg/m2 967974. 91 g 95 % 95 % 76 /min 124 mm[Hg] 82 mm[Hg] America MENDOSA [facility] & [place] 3 10:38:49 Date Recorded Body height Body mass index (BMI) Body weight Provider Name and Address Organization Details Last Updated DateTime 07/12/2022 182.88 cm 32.3 kg/m2 136889.42 g Trey Soliz [facility] & [place] 07/12/2022 09:38:12 Date Recorded Body height Body mass index (BMI) Body weight Oxygen saturation Oxygen saturation in Arterial blood by Pulse oximetry Heart rate Systolic blood pressure Diastolic blood pressure Provider Name and Address Organization Details Last Updated DateTime 2 182.88 cm 32.1 kg/m2 404543. 6 g 99 % 99 % 70 /min 126 mm[Hg] 76 mm[Hg] Yandy Carpenter [facility] & [place] 2 11:17:37 Date Recorded Body height Body mass index (BMI) Body weight Oxygen saturation Oxygen saturation in Arterial blood by Pulse oximetry Heart rate Systolic blood pressure Diastolic blood pressure Provider Name and Address Organization Details Last Updated DateTime 3 182.88 cm 33.9 kg/m2 394443. 09 g 96 % 96 % 78 /min 122 mm[Hg] 84 mm[Hg] America Blanco [facility] & [place] 3 09:31:55 Social History None recorded. Functional Status Question Answer Note LastModified by Organizat ion Details LastModified Time Do you use any illicit or recreational drugs? No Information not available 07/12/2022 Do you or have you ever used any other forms of tobacco or nicotine? No Information not available 07/12/2022 What is your level of alcohol consumption? None Information not available 07/12/2022 Mental Status None recorded. Family History Nothing Reported Notes:Mother: , diag nosed with CAD Father: Brother #1: alive, CAD Positive for hypertension and heart disease Medical History No medical history recorded. Immunizations Vaccine Type Date Status Note Provider Nam e and Address Organization Details Recorded Time Influenza, high-dose, trivalent, PF 9 completed Yandy Carpenter tereso, NAVYA - [facility] - [place] & [place] 09/01/2022 11:16:39 Influenza, high-dose, trivalent, PF 8 completed Yandy Carpenter null, NAVYA - [facility] - [place] & [place] 09/01/2022 11:16:39 Influenza, split virus, trivalent, PF 1 completed Yandy Carpenter null, NAVYA - [facility] - [place] & [place] 09/01/2022 11:16:39 pneumococcal polysaccharide PPV23 7 completed Yandy Carpenter null, NAVYA - [facility] - [place] & [place] 09/01/2022 11:16:39 Hep A, adult 8 completed Yandy Carpenter tereso, NAVYA - [facility] - [place] & [place] 09/01/2022 11:16:39 Influenza, split virus, trivalent, preservative 7 completed Yandy Carpenter tereso, NAVYA - [facility] - [place] & [place] 09/01/2022 11:16:39 Influenza, split virus, trivalent, PF 7 completed Yandy Carpenter tereso, NAVYA - [facility] - [place] & [place] 09/01/2022 11:16:39 Pneumococcal conjugate PCV 13 8 completed Yandymadeline Carpenter tereso, NAVYA - [facility] - [place] & [place] 09/01/2022 11:16:39 Past Encounters Encounter ID Performer Location Encounter Start Date Encounter Closed Date Diagnosis/Indication Diagnosis SNOMED-CT Code Diagnosis ICD10 Code Diagnosis Note [id number] Min Sheets MD [address] [place] [address] 07/12/2022 08:44:12 07/12/2022 09:26:37 Long-term current use of anticoagulant 327175329 Z79.01 [id number] Javier Mac MD [facility] [address] [facility] [address] [place] [address] 09/01/2022 10:44:38 09/01/2022 11:37:35 Benign essential hypertension 5153774 I10 Continue current medication . Keep log Low-salt diet < 2 gm Na/day, Regular exercise Weight loss Chronic at rial fibrillation 850877546 I48.20 No palpitatio ns. Chronic, rate well controlled .LVEF 50-55%cont Lopressorc hads vasc score 3 HTN, age- cont Coumadin. [id number] Javier Mac MD [facility] [address] [place] [address] 03/11/2023 09:48:53 03/11/2023 14:26:24 Chronic atrial fibrillation 749709269 I48.20 Chronic, rate well controlled .LVEF 50-55%cont Lopressor Chads vasc score 3 HTN, age- cont Coumadin. Benign ess ential hypertension 2477615 I10 blood pressure well controlled .Continue current medication .Keep logLow-carlos t diet < 2 gm Na/day,Reg ular exerciseWe ight loss [id number] Javier Mac MD [facility] [address] [place] [address] 09/26/2023 08:43:02 09/26/2023 09:58:58 Benign essential hypertension 1248914 I10 blood pressure well controlled .Continue current medication .Keep logLow-carlos t diet < 2 gm Na/day,Reg ular exerciseWe ight loss Chronic at rial fibrillation 621147878 I48.20 Chronic, rate well controlled .LVEF 50-55%cont Lopressor Chads vasc score 3 HTN, age- He is on Coumadin followed by PCP Health Concerns Section Related Observation LastModified by Organization Detai ls LastModified Time None Recorded Concern Status LastModified by Organization Details LastModified Time None Recorded Advance Directives Directive None Recorded Payers Insurance Date Sequence Insurance Name Policy Number Policy Lorenz Covered Member ID Lorenz Member ID Guarantor Name 03/11/2021 2 [employer] [facility] (MEDICAID REPLACEMENT - HMO) [place] Dave Medeiros [id number] Dave Medeiros 11/12/2024 1 [employer] (MEDICARE REPLACEMENT/AD VANTAGE - PPO) Dave Medeiros [id number] Dave Medeiros Notes Date Note Type Note Provider Name and Address Organization Details Recorded Time 09/01/2022 text/html Mr. Medeiros is seen in follow up today for atrial fibrillation/HTNPCP: Dr WechmanNo specific cardiovascular complaints today. No chest pain, shortness of breath, PND, orthopnea, peripheral edema, palpitations, presyncope, syncope+h/o atrial fibrillation since 04/2013, Chronic. he is on Coumadin followed by PCP+ HTN- well controlled+ Obesity- BMI 34 , limited of ambulation walks with a walker+ edema- well controlled on HCTZECHO 08/07 : LVEF 50-55%, Mod BRODERICK, PASP 36%. Javier Mac MD [address], [place], [address], [facility] & [place] 09/01/2022 12:24:38 03/11/2023 text/html [employer] is seen in follow up today for [...] 36%. Javier Mac MD [address], [place], [address], [facility] & [place] 03/11/2023 11:24:50 09/26/2023 text/html 82F is seen [...] 36%. Javier Mac MD [address], [place], [address], [facility] & [place] 09/26/2023 16:59:13
[2025-04-01 10:49] LABS: PHA INR Fingerstick 2.1 (0.9-1.1)
== END 2025-04-01 11:42 ==
LOC: ACC 09:25
PROVIDERS: PCP Nurse Practitioner Family; Visit Provider Nurse Practitioner Family
DX: I48.20 Chronic atrial fibrillation, unspecified (principal)
CPT/HCPCS: 85610; 99211; G0463

== ENCOUNTER 2025-05-20 09:10 | Outpatient (CLI) | payer MEDICARE, SELFPAY ==
--- OUTSIDE RECORDS SUMMARY | 2025-05-20 09:13 | XMS_ITS | Data Portability ---
Author Organization [facility] & TIFFANY Mcdaniels ADMIN Address [address] [place] [address] Assessment No assessment recorded. Plan of Treatment Reminders Order Date Submit Date Provider Last Modified By Organization Details Last Modified Time Details Appointments None recorded. Lab PT/INR 2021 022 hloeffler 1 Not available 09:56:25 Referral None recorded. Procedures None recorded. Surgeries None recorded. Imaging None recorded. Medication Orders lisinopril 40 mg tablet 2022 023 [facility] 591, [address], [address], 3 11:24:35 metoprolol tartrate 25 mg tablet 2022 023 [facility] 591, [address], [address], 3 11:24:36 amlodipine 10 mg tablet 2022 023 [facility] 591, [address], [address], 3 11:24:36 Patient TargetsNo targets recorded. Patient InstructionsNo instructions recorded. Reason for Referral None Reported. Results Created Date Observation Date Name Description Value Unit Range Abnormal Flag Note LastModifiedBy Organization Detail LastModifiedTime 07/12/20 22 07/12/2022 PT/IN R Prothrombin 2.4 Not Available [facility] [place] [id number] [facility] [address], [place], [address], 07/12/2022 09:39:59 Result Notes None recorded. Problems Name Problem SNOMED Code Status Onset Date Resolution Date Notes Provider Name and Address Organization Details Recorded Time Hypertensiv e disorder 34230485 Active Yandy Nettlesady null, [place] - [facility] - y & [place] 2 11:16:39 Idiopathic osteoarthri tis 646186002 Active Yandy Jayden null, [place] - [facility] - & [place] 2 11:16:39 Essential hypertensio n 71953671 Active Yandy Nettlesady null, [place] - [facility] - & [place] 2 11:16:39 Patient encounter status 916257299 Active Yandy Nettlesady null, [place] - [facility] - y & [place] 2 11:16:39 Open wound of neck 491020538 Active Yandy Nettlesady null, [place] - [facility] - & [place] 2 11:16:39 Acute arthritis 44506995 Active Yandy Nettlesady null, [place] - [facility] - & [place] 2 11:16:39 Therapeutic drug level - finding 195448751 Active Yandy Nettlesady null, [place] - [facility] - & [place] 2 11:16:39 Atrial fibrillatio n 51578153 Active Yandy Nettlesady null[place] - [facility] - & [place] 2 11:16:39 Chronic pain 88173638 Active Yandy Nettlesady null, [place] - [facility] - y & [place] 2 11:16:39 Long-term current use of anticoagula nt 211472885 Active Yandy Jayden null, [place] - [facility] - & [place] 2 11:16:39 Chronic back pain greater than three months duration 246489032364 Active Yandy Jayden null, [place] - [facility] - [place] & [place] 2 11:16:39 Inguinal pain 663869721 Active Yandy Jayden null, [place] - [facility] - [place] & [place] 2 11:16:39 Chronic atrial fibrillatio n 913970951 Active NAVYA Mcfadden & [place] 2 11:16:39 Acute prostatitis 89034831 Active 2003 NAVYA Mcfadden & [place] 2 11:16:39 Benign essential hypertensio n 9030256 Active 2008 NAVYA Mcfadden & [place] 2 11:16:39 Screening for malignant neoplasm of colon Active 2010 NAVYA Mcfadden & [place] 2 11:16:39 General examination of patient Active 2010 NAVYA Mcfadden & [place] 2 11:16:39 Screening for malignant neoplasm of prostate Active 2010 NAVYA Mcfadden & [place] 2 11:16:39 Needs influenza immunizatio n 247213108 Active 2010 NAVYA Mcfadden & [place] 2 11:16:39 Sprain pelvic ligament 317064718 Active 2010 NAVYA Mcfadden & [place] 2 11:16:39 Pain of joint of pelvis and/or upper leg 768776563 Active 2011 NAVYA Mcfadden & [place] 2 11:16:39 Shoulder joint pain 321195751 Active 2011 NAVYA Mcfadden & [place] 2 11:16:39 Rupture of tendon of biceps, long head 09759961 Active 2011 NAVYA Mcfadden & [place] 2 11:16:39 Problem Notes None [...] Take 1 tablet by mouth once daily active Not Available Not Available No t Available ferrous sulfate 325 mg (65 mg iron) [...] blood by Pulse oximetry Heart rate Systolic And Diastolic Provider Name and Address Organization Details Last Updated DateTime 3 182.88 cm 33.6 kg/m2 649651. 91 g 95 % 95 % 76 /min 124/82 mm[Hg] America Blanco [place] - [facility] - [place] & [place] 3 10:38:49 Date Recorded Body height Body mass index (BMI) Body weight Provider Name and Address Organization Details Last Updated DateTime 07/12/2022 182.88 cm 32.3 kg/m2 188055.42 g Trey Angulohoracio [facility] & [place] 07/12/2022 09:38:12 Date Recorded Body height Body mass index (BMI) Body weight Oxygen saturation Oxygen saturation in Arterial blood by Pulse oximetry Heart rate Systolic And Diastolic Provider Name and Address Organization Details Last Updated DateTime 2 182.88 cm 32.1 kg/m2 237453. 6 g 99 % 99 % 70 /min 126/76 mm[Hg] Yandy MENDOSA [facility] & [place] 2 11:17:37 Date Recorded Body height Body mass index (BMI) Body weight Oxygen saturation Oxygen saturation in Arterial blood by Pulse oximetry Heart rate Systolic And Diastolic Provider Name and Address Organization Details Last Updated DateTime 3 182.88 cm 33.9 kg/m2 007568. 09 g 96 % 96 % 78 /min 122/84 mm[Hg] America Blanco [facility] & [place] 3 09:31:55 Social History None recorded. Functional [...] Time Influenza, high-dose, trivalent, PF 9 completed NAVYA Mcfadden LPNT [facility] & [place] 09/01/2022 11:16:39 Influenza, high-dose, trivalent, PF 8 completed NAVYA Mcfadden [facility] - [place] & [place] 09/01/2022 11:16:39 Influenza, split virus, trivalent, PF 1 completed Yandy rider, NAVYA Stephens [facility] - [place] & [place] 09/01/2022 11:16:39 pneumococcal polysaccharide PPV23 7 completed Yandy rider, NAVYA Stephens [facility] - [place] & [place] 09/01/2022 11:16:39 Hep A, adult 8 completed Yandy rider, NAVYA Stephens [facility] - [place] & [place] 09/01/2022 11:16:39 Influenza, split virus, trivalent, preservative 7 completed Yandy rider, NAVYA ALLEN [facility] & [place] 09/01/2022 11:16:39 Influenza, split virus, trivalent, PF 7 completed Yandy rider, NAVYA ALLEN [facility] & [place] 09/01/2022 11:16:39 Pneumococcal conjugate PCV 13 8 completed Yandy rider, NAVYA ALLEN [facility] & [place] 09/01/2022 11:16:39 Past Encounters Encounter ID Performer Location Encounter Start Date Encounter Closed Date Diagnosis/Indication Diagnosis SNOMED-CT Code Diagnosis ICD10 Code Diagnosis Note [id number] Min Sheets MD [address] [place] [address] 07/12/2022 08:44:12 07/12/2022 09:26:37 Long-term current use of anticoagulant 592478069 Z79.01 [id number] Javier Mac MD [facility] [address] [place] [address] 09/01/2022 10:44:38 09/01/2022 11:37:35 Benign essential hypertension 3911106 I10 Continue current medication . Keep log Low-salt diet < 2 gm Na/day, Regular exercise Weight loss Chronic at rial fibrillation 863177522 I48.20 No palpitatio ns. Chronic, rate well controlled .LVEF 50-55%cont Lopressorc hads vasc score 3 HTN, age- cont Coumadin. [id number] Javier Mac MD [facility] [address] [place] [address] 03/11/2023 09:48:53 03/11/2023 14:26:24 Chronic atrial fibrillation 916332883 I48.20 Chronic, rate well controlled .LVEF 50-55%cont Lopressor Chads vasc score 3 HTN, age- cont Coumadin. Benign ess ential hypertension 4690022 I10 blood pressure well controlled .Continue current medication .Keep logLow-carlos t diet < 2 gm Na/day,Reg ular exerciseWe ight loss [id number] Javier Mac MD [facility] [address] [place] [address] 09/26/2023 08:43:02 09/26/2023 09:58:58 Benign essential hypertension 4049302 I10 blood pressure well controlled .Continue current medication .Keep logLow-carlos t diet < 2 gm Na/day,Reg ular exerciseWe ight loss Chronic at rial fibrillation 656273729 I48.20 Chronic, rate well controlled .LVEF 50-55%cont [...] Lorenz Member ID Guarantor Name 03/11/2021 2 [facility] (MEDICAID REPLACEMENT - HMO) [facility] Dave Medeiros [id number] Dave Medeiros 11/12/2024 1 [employer] (MEDICARE REPLACEMENT/AD VANTAGE - PPO) Dave Waldemar [id number] [facility]
--- OUTSIDE RECORDS SUMMARY | 2025-05-20 09:13 | XMS_ITS | Clinical Summary ---
[facility] Address [address] [place] [id number] Care Team Providers Care Floodplain Manager Name Role Phone Unavailable Primary Care Provider Unavailabl e Social History Tobacco Use Types Packs/Day Years Used Date Smoking Tobacco: Never Assessed Abuse Screen Answer Date Recorded Unsafe at Home or Work/School Not on file Feels Threatened by Someone? Not on file Does Anyone Keep You from Co ntacting Others or Doint Things Outside the Home? Not on file 08/05/2023 Physical Sign of Abuse Present Not on file 1 Housing Stability Answer Date Recorded Current Living Arrangements Not on file 07/24 Potentially Unsafe Housing Conditions Not on jv e 08/05/2023 Family and Community Support Answer Arthur e Recorded Help with Day-to-Day Activities Not on file 08/05/2023 Lonely or Isolated Not on file 08/05/2023 Employment Answer Date Recorded Do you want help finding or keeping work or a amado b? Not on file 08/05/2023 Disabilities Answer Date Recorded Concentrating, Remembering, or Making Decisions Difficulty Not on file 08/05/2023 Doing Errands Independently Difficulty Not on fi le 08/05/2023 Education Answer Date Recorded Help with school or training? Not on file Preferred Language Not on file 08/05/2023 Sex and Gender Information Value Date Recorded Sex Assigned at Not on file Legal Sex Male 11:08 AM EDT Gender Identity Not on file Sexual Orientation Not on file Plan of Treatment Health Maintenance Due Date Last Done Comments TDAP/TD VACCINES (1 - Tdap) 1959 Pneumococcal Vaccine 50+ (1 of 1 - PCV) 1990 ZOSTER VACCINE (1 of 2) 1990 RSV Vaccine - Adults (1 - 1-dose 75+ series) 6 ANNUAL PHYSICAL 11/01/2022 COVID-19 Vaccine (2023- season) 2024 INFLUENZA VACCINE 07/24/2025
[2025-05-20 09:46] LABS: PHA INR Fingerstick 1.8 (0.9-1.1)
== END 2025-05-20 09:49 ==
LOC: ACC 09:10
PROVIDERS: PCP Nurse Practitioner Family; Visit Provider Nurse Practitioner Family
DX: I48.20 Chronic atrial fibrillation, unspecified (principal)
CPT/HCPCS: 85610; 99211; G0463

== ENCOUNTER 2025-07-01 08:37 | Outpatient (CLI) | payer MEDICARE, SELFPAY ==
--- OUTSIDE RECORDS SUMMARY | 2025-07-01 08:48 | XMS_ITS | Clinical Summary ---
[facility] Address [address] [place] [id number] Care Team Providers Care Gasoline Attendant Name Role Phone Unavailable Primary Care Provider [...] ANNUAL PHYSICAL 11/01/2022 COVID-19 Vaccine (2023- season) 2025 INFLUENZA VACCINE 07/24/2025
[2025-07-01 11:35] LABS: PHA INR Fingerstick 2.0 (0.9-1.1)
== END 2025-07-01 13:16 ==
LOC: ACC 08:38
PROVIDERS: PCP Nurse Practitioner Family; Visit Provider Nurse Practitioner Family
DX: Z79.01 Long term (current) use of anticoagulants (principal)
CPT/HCPCS: 85610; 99211; G0463

== ENCOUNTER 2025-08-13 09:13 | Outpatient (CLI) | payer MEDICARE, SELFPAY ==
--- OUTSIDE RECORDS SUMMARY | 2025-08-13 09:31 | XMS_ITS | Clinical Summary ---
[facility] Address [address] [place] [id number] Care Team Providers Care Sales Account Representative Name Role Phone Unavailable Primary Care Provider [...] 1-dose 75+ series) 6 ANNUAL PHYSICAL 11/01/2022 INFLUENZA VACCINE 05/24/2025 COVID-19 Vaccine (2023- season) 2025
[2025-08-13 09:54] LABS: PHA INR Fingerstick 1.5 (0.9-1.1)
== END 2025-08-13 09:55 ==
LOC: ACC 09:14
PROVIDERS: PCP Nurse Practitioner Family; Visit Provider Nurse Practitioner Family
DX: Z79.01 Long term (current) use of anticoagulants (principal)
CPT/HCPCS: 85610; 99211; G0463

== ENCOUNTER 2025-08-15 10:00 | Outpatient (CLI) | payer MEDICARE, SELFPAY ==
[2025-08-15 14:00] LABS: Microscopic, Urine URINE MICROSCOPIC (MICROSCOPIC)
[2025-08-15 14:30] LABS: Hematocrit 40.1 % (42.0-52.0); Hemoglobin 13.3 g/dL (14.1-18.0); Immature Granulocytes % 0.3 %; Mean Corpuscular HGB Conc 33.2 g/dL (31.8-35.4); Mean Corpuscular Hemoglobin 33.2 pg (27.0-31.2); Mean Corpuscular Volume 100.0 fl (80-94); Nucleated Red Blood Cells % 0 %; Platelet Count 164 K/mm3 (142-424); Red Blood Count 4.01 M/mm3 (4.60-6.20); Red Cell Distribution Width-SD 50.5 fL; White Blood Count 9.2 K/mm3 (4.8-10.8)
[2025-08-15 14:41] LABS: Hemoglobin A1C 5.6 % (4.0-6.0)
[2025-08-15 14:57] LABS: Bilirubin,Urine Negative (Negative); Color,Urine YELLOW (Yellow); Glucose,Urine (UA) Negative (Negative); Ketones,Urine Negative (Negative); Leukocyte Esterase,Urine Negative (Negative); PH,Urine 7.0 (5.0-8.5); Protein,Urine Negative (Negative); Specific Gravity, Urine 1.015 (1.005-1.030); Urobilinogen,Urine 1.0 EU/dl (0.2)
[2025-08-15 15:27] LABS: Albumin Level 3.9 g/dl (3.5-5.0); Chloride 97 mmol/L (98-107); Sodium 134 mmol/L (136-145)
[2025-08-15 15:28] LABS: Potassium 4.1 mmoL/L (3.5-5.1)
[2025-08-15 15:30] LABS: Alanine Aminotransferase 14 U/L (12-78); Albumin/Globulin Ratio 1.3 (1.1-1.8); Anion Gap 11.1 mEq/L (5-15); Aspartate Amino Transferase 24 U/L (17-59); Blood Urea Nitrogen 13 mg/dl (9-20); Carbon Dioxide 30 mmol/L (22.0-30.0); Creatinine,Serum 0.80 mg/dl (0.66-1.25); Estimated Glomerular Filt Rate 92 ml/min (>60); GFR (African American) 111 ML/MIN (>60); Globulin 3.0 g/dL (1.3-3.2); Total Protein,Serum 6.9 g/dl (6.3-8.2); Uric Acid 4.5 mg/dl (3.5-8.5)
[2025-08-15 15:31] LABS: Alkaline Phosphatase 144 U/L (38-126); Bilirubin,Total 1.3 mg/dl (0.2-1.3); Calcium 8.9 mg/dl (8.4-10.2); Cholesterol 185 mg/dl (140-200); Glucose 79 mg/dl (74-100); HDL Cholesterol 37 mg/dl (40-60); Triglycerides 131 mg/dl (30-150)
[2025-08-15 15:45] LABS: Free T4 (Free Thyroxine) 1.19 ng/dl (0.78-2.19)
[2025-08-15 15:51] LABS: 25-OH Vitamin D, Total 36.6 ng/mL (30-100)
[2025-08-15 16:02] LABS: Thyroid Stimulating Hormone 2.31 uIU/mL (0.465-4.68)
[2025-08-15 16:21] LABS: Vitamin B12 264 pg/mL (239-931)
[2025-08-15 19:41] LABS: RBC,Urine Occasional #/hpf (0-3); Squamous Epithelial Cell,Urine Occasional #/hpf (0-5); WBC,Urine Occasional #/hpf (0-3)
--- OUTSIDE RECORDS SUMMARY | 2025-08-16 10:52 | XMS_ITS | Data Portability ---
Author Organization [facility] & TIFFANY Mcdaniels ADMIN Address [address] [place] [id number] Assessment No assessment recorded. Plan of Treatment Reminders Order Date Submit Date Provider Last Modified By Organization Details Last Modified Time Details Appointments None recorded. Lab PT/INR 2021 022 [email or web address] 1 Not available 09:56:25 Referral None recorded. Procedures None recorded. Surgeries None recorded. Imaging None recorded. Medication Orders lisinopril 40 mg tablet 2022 023 [facility], [address], [address], 3 11:24:35 metoprolol tartrate 25 mg tablet 2022 023 [facility], [address], [address], 3 11:24:36 amlodipine 10 mg tablet 2022 023 [facility], [address], [address], 3 11:24:36 Patient TargetsNo targets recorded. Patient InstructionsNo instructions recorded. Reason for Referral None Reported. Results Created Date Observation Date Name Description Value Unit Range Abnormal Flag Note LastModifiedBy Organization Detail LastModifiedTime 07/12/20 22 07/12/2022 PT/IN R Prothrombin 2.4 Not Available [facility] Ex press [place] [id number] [facility] [address], [place], [address], 07/12/2022 09:39:59 Result Notes None recorded. Problems Name Problem SNOMED Code Status Onset Date Resolution Date Notes Provider Name and Address Organization Details Recorded Time Hypertensiv e disorder 99069029 Active Yandy Nettlesady null, [place] - [facility] - [place] & [place] 2 11:16:39 Idiopathic osteoarthri tis 346278242 Active Yandy Jayden null, [place] [facility] [place] & [place] 2 11:16:39 Essential hypertensio n 83198696 Active Yandy Nettlesady null, [place] [facility] [place] & [place] 2 11:16:39 Patient encounter status 103692710 Active Yandy Nettlesady null, [place] [facility] [place] & [place] 2 11:16:39 Open wound of neck 147176564 Active Yandy Nettlesady null, [place] [facility] [place] & [place] 2 11:16:39 Acute arthritis 65978345 Active Yandy Nettlesady null[place] [facility] [place] & [place] 2 11:16:39 Therapeutic drug level - finding 633357644 Active Yandy Nettlesady [place] [facility] [place] & [place] 2 11:16:39 Atrial fibrillatio n 14950946 Active Yandy Nettlesady [place] [facility] [place] & [place] 2 11:16:39 Chronic pain 29394141 Active Yandy Nettlesady null, [place] [facility] [place] & [place] 2 11:16:39 Long-term current use of anticoagula nt 587124631 Active Yandy Jayden null, [place] [facility] - & [place] 2 11:16:39 Chronic back pain greater than three months duration 436341733608 Active Yandy Jayden [place], [place] [facility] - [place] [facility] [place] 2 11:16:39 Inguinal pain 485045758 Active Yandy Jayden null, [place] [facility] [place] [facility] [place] 2 11:16:39 Chronic atrial fibrillatio n 394940718 Active NAVYA Mcfadden & [place] 2 11:16:39 Acute prostatitis 19851942 Active 2003 NAVYA Mcfadden & [place] 2 11:16:39 Benign essential hypertensio n 5417588 Active 2008 NAVYA Mcfadden & [place] 2 11:16:39 Screening for malignant neoplasm of colon Active 2010 NAVYA Mcfadden & [place] 2 11:16:39 General examination of patient Active 2010 NAVYA Mcfadden & [place] 2 11:16:39 Screening for malignant neoplasm of prostate Active 2010 NAVYA Mcfadden & [place] 2 11:16:39 Needs influenza immunizatio n 746927480 Active 2010 NAVYA Mcfadden & [place] 2 11:16:39 Sprain pelvic ligament 273657690 Active 2010 NAVYA Mcfadden & [place] 2 11:16:39 Pain of joint of pelvis and/or upper leg 315996881 Active 2011 NAVYA Mcfadden & [place] 2 11:16:39 Shoulder joint pain 872997791 Active 2011 NAVYA Mcfadden & [place] 2 11:16:39 Rupture of tendon of biceps, long head 54458748 Active 2011 NAVYA Mcfadden & [place] 2 [...] Updated DateTime 3 182.88 cm 33.6 kg/m2 799503. 91 g 95 % 95 % 76 /min 124/82 mm[Hg] America Blanco [place] - [facility] - [place] & [place] 3 10:38:49 Date Recorded Body height Body mass index (BMI) Body weight Provider Name and Address Organization Details Last Updated DateTime 07/12/2022 182.88 cm 32.3 kg/m2 640837.42 g Trey Angulohoracio [facility] & [place] 07/12/2022 09:38:12 Date Recorded Body height Body mass index (BMI) Body weight Oxygen saturation Oxygen saturation in Arterial blood by Pulse oximetry Heart rate Systolic And Diastolic Provider Name and Address Organization Details Last Updated DateTime 2 182.88 cm 32.1 kg/m2 662562. 6 g 99 % 99 % 70 /min 126/76 mm[Hg] Ynady MENDOSA [facility] & [place] 2 11:17:37 Date Recorded Body height Body mass index (BMI) Body weight Oxygen saturation Oxygen saturation in Arterial blood by Pulse oximetry Heart rate Systolic And Diastolic Provider Name and Address Organization Details Last Updated DateTime 3 182.88 cm 33.9 kg/m2 606190. 09 g 96 % 96 % 78 /min 122/84 mm[Hg] America Blanco [facility] & [place] 3 09:31:55 Social History None recorded. Functional [...] trivalent, PF 9 completed NAVYA Mcfadden [facility] & [place] 09/01/2022 11:16:39 Influenza, high-dose, trivalent, PF 8 completed NAVYA Mcfadden [facility] & [place] 09/01/2022 11:16:39 Influenza, split virus, trivalent, PF 1 completed Yandy rider, NAVYA Stephens [facility] - [place] & [place] 09/01/2022 11:16:39 pneumococcal polysaccharide PPV23 7 completed Yandy rider, NAVYA - [facility] - [place] & [place] 09/01/2022 11:16:39 Hep A, adult 8 completed Yandy rider, NAVYA - [facility] - [place] & [place] 09/01/2022 11:16:39 Influenza, split virus, trivalent, preservative 7 completed Yandy rider, NAVYA Stephens [facility] & [place] 09/01/2022 11:16:39 Influenza, split virus, trivalent, PF 7 completed Yandy rider, NAVYA Stephens [facility] & [place] 09/01/2022 11:16:39 Pneumococcal conjugate PCV 13 8 completed Yandy rider, NAVYA - [facility] & [place] 09/01/2022 11:16:39 Past Encounters Encounter ID Performer Location Encounter Start Date Encounter Closed Date Diagnosis/Indication Diagnosis SNOMED-CT Code Diagnosis ICD10 Code Diagnosis IMO Codes Diagnosis Note [id number] Min Sheets MD [facility] [address] [place] [address] 07/12/2022 08:44:12 07/12/2022 09:26:37 Long-term current use of anticoagulant 355199160 Z79.01 [id number] Javier Mac MD [facility] [address] [place] [address] 09/01/2022 10:44:38 09/01/2022 11:37:35 Benign essential hypertension 9161628 I10 Continue current medication . Keep log Low-salt diet < 2 gm Na/day, Regular exercise Weight loss Chronic at rial fibrillation 104621390 I48.20 No palpitatio ns. Chronic, rate well controlled .LVEF 50-55%cont Lopressorc hads vasc score 3 HTN, age- cont Coumadin. [id number] Javier Mac MD [facility] [address] [place] [address] 03/11/2023 09:48:53 03/11/2023 14:26:24 Chronic atrial fibrillation 494445367 I48.20 Chronic, rate well controlled .LVEF 50-55%cont Lopressor Chads vasc score 3 HTN, age- cont Coumadin. Benign ess ential hypertension 3449833 I10 blood pressure well controlled .Continue current medication .Keep logLow-carlos t diet < 2 gm Na/day,Reg ular exerciseWe ight loss [id number] Javier Mac MD [facility] [address] [place] [address] 09/26/2023 08:43:02 09/26/2023 09:58:58 Benign essential hypertension 2573314 I10 blood pressure well controlled .Continue current medication .Keep logLow-carlos t diet < 2 gm Na/day,Reg ular exerciseWe ight loss Chronic at rial fibrillation 215499446 I48.20 Chronic, rate well controlled .LVEF 50-55%cont [...] Lorenz Member ID Guarantor Name 03/11/2021 2 [facility] (MEDICAID REPLACEMENT - HMO) [facility] Dave Medeiros [id number] Dave Medeiros 11/12/2024 1 [employer] (MEDICARE REPLACEMENT/AD VANTAGE - PPO) Dave Waldemar [id number] Daveomar Medeiros Notes Date Note Type Note Provider [...] 36%. Javier Mac MD [address], [place], [address], [facility] & [place] 09/01/2022 12:24:38 03/11/2023 text/html Mr. Medeiros is [...] 36%. Javier Mac MD [address], [place], [address], [facility] & [place] 03/11/2023 11:24:50 09/26/2023 text/html 82F is seen [...] 36%. Javier Mac MD [address], [place], [address], [facility] & [place] 09/26/2023 16:59:13
--- OUTSIDE RECORDS SUMMARY | 2025-08-16 10:52 | XMS_ITS | Clinical Summary ---
[facility] Address [address] [place] [id number] Care Team Providers Care Head Stock Operator Name Role Phone Unavailable Primary Care Provider [...]
== END 2025-08-15 23:59 | disposition home or self-care (01) ==
LOC: LAB.DROPOF 08-16 10:48
PROVIDERS: PCP Nurse Practitioner Family; Visit Provider Nurse Practitioner Family
DX: Z00.00 Encounter for general adult medical examination without abnormal findings (principal); E53.8 Deficiency of other specified B group vitamins; I10 Essential (primary) hypertension; Z12.5 Encounter for screening for malignant neoplasm of prostate; E55.9 Vitamin D deficiency, unspecified; D64.9 Anemia, unspecified; Z99.89 Dependence on other enabling machines and devices; Z79.01 Long term (current) use of anticoagulants; K21.9 Gastro-esophageal reflux disease without esophagitis; M10.9 Gout, unspecified; E11.9 Type 2 diabetes mellitus without complications; R41.3 Other amnesia; G47.33 Obstructive sleep apnea (adult) (pediatric); E78.5 Hyperlipidemia, unspecified; I48.91 Unspecified atrial fibrillation
CPT/HCPCS: 80053; 80061; 81001; 82306; 82607; 83036; 84156; 84439; 84443; 84550; 85025; 87086

== ENCOUNTER 2025-09-24 08:53 | Outpatient (CLI) | payer MEDICARE, SELFPAY ==
--- OUTSIDE RECORDS SUMMARY | 2025-09-24 08:55 | XMS_ITS | Clinical Summary ---
[facility] Address [address] [place] [id number] Care Team Providers Care Fish Trapper Name Role Phone Unavailable Primary Care Provider [...]
--- OUTSIDE RECORDS SUMMARY | 2025-09-24 08:55 | XMS_ITS ---
Author Organization Unknown TREATMENT PLAN [facility] Start Date Provider Encounter for Check-up [id number] [facility]
[2025-09-24 09:15] LABS: PHA INR Fingerstick 1.7 (0.9-1.1)
== END 2025-09-24 09:16 ==
LOC: ACC 08:53
PROVIDERS: PCP Nurse Practitioner Family; Visit Provider Nurse Practitioner Family
DX: Z79.01 Long term (current) use of anticoagulants (principal)
CPT/HCPCS: 85610; 99211; G0463